=== PATIENT | female | born 1955 | race Caucasian/White ===

== ENCOUNTER 2017-11-22 06:24 | Day surgery (SDC) | payer OTHER ==
[2017-11-20 15:58] LABS: BASOPHILS % (AUTO) 0.5 % (0.0-2.0); EOSINOPHILS # (AUTO) 0.2 K/uL (0-0.4); EOSINOPHILS % (AUTO) 3.9 % (0.0-4.0); HEMOGLOBIN 13.8 g/dL (12.0-16.0); LYMPHOCYTES % (AUTO) 34.2 % (20.5-51.1); MEAN CORPUSCULAR HEMOGLOBIN 29 pg (27-31); MEAN CORPUSCULAR HGB CONC 33 g/dL (33-37); MEAN CORPUSCULAR VOLUME 87.1 fL (80-94); MONOCYTES # (AUTO) 0.6 K/uL (0.8-1.0); NEUTROPHILS # (AUTO) 3.1 K/uL (1.8-7.7); NEUTROPHILS % (AUTO) 51.4 % (42.2-75.2); PLATELET COUNT (AUTO) 193 K/uL (140-450); RED BLOOD CELL COUNT(AUTO) 4.82 MIL/uL (4.20-5.40); RED CELL DISTRIBUTION WIDTH 13.7 % (11.6-13.7)
[2017-11-20 16:11] LABS: ALBUMIN 3.4 g/dL (3.4-5.0); ANION GAP 7.6 (8-16); CARBON DIOXIDE 28.3 mmol/L (21-32); CREATININE 0.9 mg/dL (0.6-1.3); POTASSIUM 3.9 mmol/L (3.5-5.1); TOTAL BILIRUBIN 0.3 mg/dL (0.0-1.0)
[~2017-11-22] VITALS: Ht 165.1 cm; Wt 95.3 kg
[~2017-11-22 06:24] MED LIST: ACETAMINOPHEN-COD #3 TABLET; IBUP800T55 PO
[2017-11-22] MEDS ORDERED: LIDOCAINE 2% 100 MG/5 ML SYR IVP ONE (07:53)
[2017-11-22] MEDS ORDERED: PROPOFOL 200 MG/20 ML VIAL IV ONE (07:53)
[2017-11-22] MEDS ORDERED: SEVOFLURANE 250 ML BTL INH ONE (07:53)
[2017-11-22] MEDS ORDERED: MIDAZOLAM 2 MG/2 ML VIAL ONE (08:02)
[2017-11-22] MEDS ORDERED: MORPHINE SULFATE 4 MG/ML SYR IM/IVP PRN (08:10)
[2017-11-22] MEDS ORDERED: ACETAMINOPHEN/CODEINE 300/30MG 1 TAB PO PRN (08:10)
[2017-11-22] MEDS ORDERED: IBUPROFEN 800 MG TAB PO PRN (08:10)
[2017-11-22] MEDS ORDERED: ONDANSETRON 4 MG/2 ML VIAL IVP PRN ×2 (08:10→08:15)
[2017-11-22] MEDS ORDERED: HYDROmorphone 1 MG/ML AMP IVP PRN (08:15)
== END 2017-11-22 09:55 | disposition home or self-care (01) ==
LOC: MMU 06:24 → MDS 06:24
PROVIDERS: ATTEND Obstetrics & Gynecology
DX: N95.0 Postmenopausal bleeding (principal); N81.10 Cystocele, unspecified; N81.4 Uterovaginal prolapse, unspecified; N84.0 Polyp of corpus uteri; I10 Essential (primary) hypertension; E66.9 Obesity, unspecified; Z68.34 Body mass index [BMI] 34.0-34.9, adult; M06.9 Rheumatoid arthritis, unspecified; Z98.890 Other specified postprocedural states; Z79.899 Other long term (current) drug therapy; Z98.51 Tubal ligation status
CPT/HCPCS: 36415; 58120; 71045; 80053; 85025; 93005; J2001; J2250; J2704; J7120

== ENCOUNTER 2019-02-09 15:48 | Emergency (ER) | payer OTHER ==
[~2019-02-09] VITALS: Ht 157.5 cm; Wt 79.8 kg
[2019-02-09 15:50] VITALS: BP 136/81
--- NOTE | 2019-02-09 15:55 | NUR ---
PT AMBULATED TO BED 8.
--- NOTE | 2019-02-09 16:18 | NUR ---
64 YEAR OLD FEMALE COMPLAINS OF UPPER ABDOMINAL PAIN 10/25 THAT RADIATES TO FLANK AREA X 2DAYS. PATIENT STATES SHE HAS HAD NAUSEA AND VOMITTING X6 DAYS. BOWEL SOUNDS ACTIVE X4, PAIN UPON PALPATION IN UPPER ABDOMEN. DENIES DIARRHEA. PATIENT STATES BURNING SENSATION FROM THROAT. PATIENT ALERT AND ORIENTED. HX - HYPERTENSION
[2019-02-09] MEDS ORDERED: KETOROLAC 60 MG/2 ML VIAL IM ONE (16:35)
[2019-02-09] MEDS ORDERED: DICYCLOMINE HCL LIQUID 20 MG, ALUMINUM HYD/MAG/SIMETHICONE 30 ML, LIDOCAINE VISCOUS 2% ... PO ONE ×3 (16:35)
[2019-02-09] MEDS ORDERED: ONDANSETRON 4 MG ODT PO ONE (16:35)
[2019-02-09 17:17] VITALS: BP 151/90
--- NOTE | 2019-02-09 17:17 | NUR ---
Patient discharged with v/s stable. Written and verbal after care instructions given and explained. Patient alert, oriented and verbalized understanding of instructions. Ambulatory with steady gait. All questions addressed prior to discharge. ID band removed. Patient advised to follow up with PMD. Rx of PRILOSEC, MOTRIN, ZOFRAN given. Patient educated on indication of medication including possible reaction and side effects. Opportunity to ask questions provided and answered.
== END 2019-02-09 17:17 | disposition home or self-care (01) ==
LOC: MED 15:48
DX: R10.13 Epigastric pain (principal); R11.2 Nausea with vomiting, unspecified; I10 Essential (primary) hypertension; Z90.710 Acquired absence of both cervix and uterus; Z98.890 Other specified postprocedural states; Z79.1 Long term (current) use of non-steroidal anti-inflammatories (NSAID); Z79.899 Other long term (current) drug therapy
CPT/HCPCS: 81002; 81025; 96372; 99283; J1885; Q0162

== ENCOUNTER 2020-02-11 10:42 | Emergency (ER) | payer OTHER ==
[~2020-02-11] VITALS: Ht 157.5 cm; Wt 94.8 kg
[2020-02-11 10:45] VITALS: BP 116/89
--- NOTE | 2020-02-11 10:54 | NUR ---
Patient ambulated to bed 02 with steady gait
--- NOTE | 2020-02-11 11:11 | NUR ---
65 Y/F PRESENTS TO ED C CO R SCAPULAR PAIN X 5 DAY. PT REPORTS PAIN RADIATES TO NECK AND R SHOULDER. 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 PAIN IS ON AND OFF, 7/10 UNRELIEVED BY TYLENOL AND MOTRIN. PAIN IS WORSE WITH MOVEMENT. NO BRUISING OR EDEMA NOTED, NO OPEN SKIN OR WOUNDS NOTED. RX- TYLENOL, MOTRIN NKDA
--- NOTE | 2020-02-11 11:20 | NUR ---
XR AT BEDSIDE.
[2020-02-11] MEDS ORDERED: KETOROLAC 30 MG/ML VIAL IM ONE (11:30)
--- NOTE | 2020-02-11 11:59 | NUR ---
COVID SWAB COLLECTED AND GIVEN TO PHLEB.
[2020-02-11 12:28] VITALS: BP 116/89
--- NOTE | 2020-02-11 12:28 | NUR ---
Patient discharged with v/s stable. Written and verbal after care instructions given and explained. Patient alert, oriented and verbalized understanding of instructions. Ambulatory with steady gait. All questions addressed prior to discharge. ID band removed. Patient advised to follow up with PMD. Rx of IBUPROFEN AND AZITHROMYCIN given. Patient educated on indication of medication including possible reaction and side effects. Opportunity to ask questions provided and answered.
--- NOTE | 2020-02-12 11:59 | NUR ---
+ covid result received from lab. Copy given to Stacey at infection control
== END 2020-02-11 12:28 | disposition home or self-care (01) ==
LOC: MED 10:42
DX: U07.1 COVID-19 (principal); J18.9 Pneumonia, unspecified organism; M54.6 Pain in thoracic spine; I10 Essential (primary) hypertension
CPT/HCPCS: 71045; 96372; 99284; J1885; U0003

== ENCOUNTER 2020-02-16 11:28 | Inpatient (IN) | payer OTHER, SELFPAY ==
[~2020-02-16] VITALS: Ht 154.9 cm; Wt 91.2 kg
[2020-02-16 11:42] VITALS: BP 153/105
--- NOTE | 2020-02-16 11:48 | NUR ---
Patient ambulated to bed 3. RN evaluating patient at bedside.
[2020-02-16] MEDS ORDERED: DEXAMETHASONE 10 MG/ML VIAL IVP ONE (12:00)
[2020-02-16] MEDS ORDERED: AZITHROMYCIN 500 MG in DEXTROSE 5% 250 ML IV ONE (12:00)
[2020-02-16] MEDS ORDERED: AZITHROMYCIN 500 MG INJ VIAL IV ONE (12:12)
[2020-02-16] MEDS ORDERED: cefTRIAXone 1,000 MG VIAL ONE (12:13)
[2020-02-16 12:45] LABS: BASOPHILS % (AUTO) 0.2 % (0.0-2.0); HEMATOCRIT 39.6 % (36-48); HEMOGLOBIN 13.5 g/dL (12.0-16.0); LYMPHOCYTES # (AUTO) 0.6 K/uL (2.5-16.5); LYMPHOCYTES % (AUTO) 5.8 % (20.5-51.1); MEAN CORPUSCULAR HEMOGLOBIN 29 pg (27-31); MEAN CORPUSCULAR HGB CONC 34 g/dL (33-37); MEAN CORPUSCULAR VOLUME 84.6 fL (80-94); MONOCYTES # (AUTO) 0.4 K/uL (0.8-1.0); MONOCYTES % (AUTO) 3.5 % (1.7-9.3); NEUTROPHILS # (AUTO) 9.2 K/uL (1.8-7.7); NEUTROPHILS % (AUTO) 90.5 % (42.2-75.2); PLATELET COUNT (AUTO) 247 K/uL (140-450); RED BLOOD CELL COUNT(AUTO) 4.68 MIL/uL (4.20-5.40); RED CELL DISTRIBUTION WIDTH 13.8 % (11.6-13.7); WHITE BLOOD COUNT (AUTO) 10.1 K/uL (4.8-10.8)
--- NOTE | 2020-02-16 12:52 | NUR ---
URINE COLLECTED AT THIS TIME
[2020-02-16 12:59] LABS: PROTHROMBIN TIME 10.9 secs (10.8-13.4)
[2020-02-16 13:04] LABS: APPEARANCE,URINE CLEAR (CLEAR); BILIRUBIN,URINE NEGATIVE (NEGATIVE); BLOOD, URINE TRACE-I (NEGATIVE); COLOR,URINE YELLOW (YELLOW); LEUKOCYTE ESTERASE ,URINE NEGATIVE (NEGATIVE); NITRITE, URINE NEGATIVE (NEGATIVE); UGLUCOSE NEGATIVE (NEGATIVE)
--- NOTE | 2020-02-16 13:05 | NUR ---
65 YO F C/O COUGH, , SOB X 3 DAYS. PT TESTED + FOR COVIS LAST 02/11/20. IN ED, PT SATURATING @ 95% IN RA, TACHYCARDIC AT 102BPM. PT WITH DEEP LABORED BREATHING. ERMD MADE AWARE. PMH: HTN NKA
[2020-02-16 13:09] LABS: ALBUMIN 2.8 g/dL (3.4-5.0); ANION GAP 16.1 (8-16); CREATININE 0.7 mg/dL (0.6-1.3); POTASSIUM 3.1 mmol/L (3.5-5.1); TOTAL BILIRUBIN 0.6 mg/dL (0.0-1.0)
[2020-02-16 13:12] LABS: RBC,URINE 0-5 /HPF (0-5); WBC,URINE 0-5 /HPF (0-5)
[2020-02-16 13:14] LABS: C-REACTIVE PROTEIN QUANT 12.8 mg/dL (0.0-0.9)
[2020-02-16 13:45] LABS: CKMB RELATIVE INDEX 1.6 (0.0-2.5); CREATINE KINASE MB 4.8 ng/mL (0-3.6)
[2020-02-16] MEDS ORDERED: POTASSIUM CHLORIDE 10 MEQ TABER PO PRN (14:40)
[2020-02-16] MEDS ORDERED: DOCUSATE SODIUM 100 MG GELCAP PO PRN (14:40)
[2020-02-16] MEDS ORDERED: LORazepam 2 MG/ML VIAL IM/IVP PRN (14:40)
[2020-02-16] MEDS ORDERED: ONDANSETRON 4 MG/2 ML VIAL IM/IVP PRN (14:40)
[2020-02-16] MEDS ORDERED: MAG SULF 2000 MG/WATER PREMIX 50 ML IV PRN (14:40)
[2020-02-16] MEDS ORDERED: ZOLPIDEM 5 MG TAB PO PRN (14:40)
[2020-02-16] MEDS ORDERED: ALBUTEROL HFA MDI 90 MCG/ACTUATION 8 GM INH PRN (14:40)
[2020-02-16] MEDS: NACL 0.9% 1,000 ML IV SCH (15:13)
[2020-02-16 16:48] LABS: MAGNESIUM 1.6 mg/dL (1.8-2.4); PHOSPHORUS 3.3 mg/dL (2.5-4.9); THYROID STIMULATING HORMONE 1.89 uIU/mL (0.34-3.74)
[2020-02-16 17:04] LABS: BARBITURATE, URINE NEGATIVE ng/ml (NEG <=200); BENZODIAZEPINE, URINE NEGATIVE ng/mL (NEG <=200); CANNABINOID, URINE NEGATIVE ng/mL (NEG <=50); COCAINE, URINE NEGATIVE ng/mL (NEG <=300); OPIATE, URINE NEGATIVE ng/mL (NEG <=2000); PHENCYCLIDINE SCREEN,URINE NEGATIVE ng/mL (NEG <=25)
--- NOTE | 2020-02-16 19:18 | NUR ---
REPORT RECEIVED FROM ELADIO FERRARA
[2020-02-16] MEDS: ZINC SULF 220 MG CAP PO SCH (20:47)
[2020-02-16] MEDS: ENOXAPARIN 100 MG/ML SYR SUBQ SCH (20:48)
--- NOTE | 2020-02-16 21:36 | NUR ---
PT UP TO BEDSIDE COMMODE, HAD LOOSE STOOLS. PT BACK IN BED, POSOTIONED FOR COMFORT. REMAINS ON BEDSIDE MONITOR AND 02 AT 4L NC. PT ALSO C/O CHEST PAIN/DISCOMFORT RELATED TO BREATHING, WILL MEDICATE ORDERED FOR PRN PAIN.
[2020-02-16] MEDS: HYDROcodone/APAP 5/325 MG 1 TAB TAB PO PRN (21:42)
--- NOTE | 2020-02-16 22:28 | NUR ---
PT DECLINED HER DINNER TRAY
--- NOTE | 2020-02-17 01:00 | NUR ---
PT SLEEPING, RESPIRATIONS REMAIN REGULAR EVEN AND UNLABORED. PT REMAINS ON BEDSIDE MONITOR.
[2020-02-17 02:15] VITALS: BP 158/94
--- NOTE | 2020-02-17 02:15 | NUR ---
CONTINUATION: PATIENT BP IS HIGH 158/94, HR-92,TEMP-97.1, SATING 92% ON 4L/NC. SR ON TACTICAL DEBRIEFER OFFICER, HR-86.ORIENTED THE PT TO THE ROOM SETTING AND USE OF CALL LIGHT SYSTEM. IVF INFUSING ORDERED. INSTRUCTED THE PT TO CALL FOR ASSISTANCE AT ALL TIMES. CALL LIGHT WITHIN REACH. WILL CONTINUE POC AND MONITORING.
--- NOTE | 2020-02-17 02:20 | NUR ---
ADMITTED THE PT FROM ER VIA GURNEY. PATIENT A/A/OX4, JAPANESE SPEAKING ONLY.PT AMBULATORY WITH STANDBY ASSIST ONLY. HR ADMINISTRATOR PROVIDED # [id number]. DENIES ANY CHEST PAIN,SOB , PALPITATIONS AND DIZZINESSBP .
--- NOTE | 2020-02-17 02:28 | NUR ---
Patient will be admitted to care of DR HOLLAND. Admited to TELE. Will go to room 107B. Belongings list completed. Report to BRENDA FERRARA.
[2020-02-17 04:00] VITALS: BP 125/71
--- NOTE | 2020-02-17 04:00 | NUR ---
PATIENTS VITAL SIGNS STABLE, AFEBRILE, SATING 93% ON 4L/NC. SR ON CIRCUIT COURT CLERK, HR-70. NO COMPLAIN OF PAIN AT THIS TIME. NOT IN ANY DISTRESS.CALL LIGHT WITHIN REACH.
--- NOTE | 2020-02-17 04:24 | NUR ---
PATIENT ASLEEP AT THIS TIME. NOT IN ANY DISTRESS. WILL CONTINUE TO MONITOR. SATING 94% ON 4L/NC.
[2020-02-17] MEDS: NACL 0.9% 1,000 ML IV SCH (05:54)
--- NOTE | 2020-02-17 06:05 | NUR ---
NO ACUTE EVENT THROUGHOUT THE NIGHT. PATIENT STABLE. NO SIGN AND SYMPTOMS OF DISTRESS NOTED. NO COMPLAIN AT THIS TIME. ALL NEEDS ATTENDED.C ALL LIGHT WITHIN REACH. WILL ENDORSE THE PT TO THE ONCOMING RN FOR CONTINUITY OF CARE.
--- NOTE | 2020-02-17 07:25 | NUR ---
RECEIVED REPORT FROM BUSINESS PROCESS ASSOCIATE RN FOR CONTINUITY OF CARE. PATIENT IS AWAKE, ALERT. ABLE TO MAKE NEEDS KNOWN. RESPIRATORY EVEN AND UNLABORED WITH 4L NC. SKIN INTACT. WARM AND DRY. IV SITE TO LEFT WRIST 24G INFUSING NS @60ML/HR. ABDOMEN SOFT NON TENDER. NO ACUTE DISTRESS NOTED. SAFETY MEASURES IN PLACE, CALL LIGHT WITHIN REACH. WILL CONTINUE TO MONITOR.
[2020-02-17 07:36] LABS: BASOPHILS % (AUTO) 0.1 % (0.0-2.0); HEMATOCRIT 38.1 % (36-48); HEMOGLOBIN 12.9 g/dL (12.0-16.0); LYMPHOCYTES # (AUTO) 0.5 K/uL (2.5-16.5); LYMPHOCYTES % (AUTO) 8.2 % (20.5-51.1); MEAN CORPUSCULAR HEMOGLOBIN 29 pg (27-31); MEAN CORPUSCULAR HGB CONC 34 g/dL (33-37); MEAN CORPUSCULAR VOLUME 84.1 fL (80-94); MONOCYTES # (AUTO) 0.4 K/uL (0.8-1.0); MONOCYTES % (AUTO) 6.7 % (1.7-9.3); NEUTROPHILS # (AUTO) 4.7 K/uL (1.8-7.7); PLATELET COUNT (AUTO) 259 K/uL (140-450); RED BLOOD CELL COUNT(AUTO) 4.53 MIL/uL (4.20-5.40); RED CELL DISTRIBUTION WIDTH 14.1 % (11.6-13.7); WHITE BLOOD COUNT (AUTO) 5.5 K/uL (4.8-10.8)
[2020-02-17 08:00] VITALS: BP 122/71
[2020-02-17 08:18] LABS: MAGNESIUM 1.8 mg/dL (1.8-2.4); PHOSPHORUS 3.6 mg/dL (2.5-4.9)
--- NOTE | 2020-02-17 08:49 | NUR ---
PATIENT HAS BEEN SCREENED AND CATEGORIZED MODERATE NUTRITION RISK. PATIENT WILL BE SEEN WITHIN 3-5 DAYS OF ADMISSION. 02/19/20 02/21/[address]
[2020-02-17] MEDS: VITAMIN D 400 IU TAB PO SCH (09:47)
[2020-02-17] MEDS: AZITHROMYCIN 250 MG TAB PO SCH (09:48)
[2020-02-17] MEDS: ASCORBIC ACID 500 MG TAB PO SCH (09:48)
[2020-02-17] MEDS: ZINC SULF 220 MG CAP PO SCH ×2 (09:48→21:04)
[2020-02-17] MEDS: ENOXAPARIN 100 MG/ML SYR SUBQ SCH ×2 (09:49→21:06)
--- NOTE | 2020-02-17 09:50 | NUR ---
SCHEDULED MEDICATION GIVEN, EDUCATION PROVIDED, PATIENT TOLERATED WELL. PATIENT TOOK OFF THE OXYGEN WHILE TAKING THE MEDICATION. O2 SAT DROPPED TO 76%, PUT BACK THE 4L OXYGEN VIA NASAL CANNULA, O2 SAT INCREASED TO 91%. INFORMED PATIENT TO BREATHE SLOWLY. INSTRUCTED THE PATIENT TO TAKE BREATH, PATIENT VERBALIZED UNDERSTANDING AND ABLE TAKE DEEP BREATHE. SAFETY MEASURES IN PLACE, CALL LIGHT WITHIN REACH. WILL CONTINUE TO MONITOR.
--- NOTE | 2020-02-17 10:42 | NUR ---
REPORTED TO MD THAT PATIENT'S POTASSIUM LEVEL WAS 3.1 YESTERDAY, AND NO MEDS BEEN GIVEN FOR REPLETE K. NEW MD ORDER 40 MEQ K RIDER WITH LIDOCAINE OBTAINED, CHECK BMP, WILL FOLLOW UP AND CARRY OUT.
[2020-02-17] MEDS ORDERED: POTASSIUM CHLORIDE 40 MEQ, LIDOCAINE MPF 1% 25 MG in NACL 0.9% 250 ML IV ONE (10:45)
--- NOTE | 2020-02-17 11:33 | NUR ---
SOCIAL WORK NOTE: Patient's Orientation Person Situation Place Time Information Provided By PATIENT Comments SW WAS UNABLE TO MEET PATIENT AT BEDSIDE DUE TO MEDICAL CONDITION. SW COMPLETED ASSESSMENT WITH PATIENT TELEPHONICALLY WITH EDGE BASTER NASEEM [id number]. Cdl Bulk Driver, Realtionship and Phone Number ROLA MACHADO [phone] Healthcare Power of Shirt Marker No Does Patient Have a POLST No Identifying Problems No Social Work Triggers Is A Social Work Consult Needed No Mandate Report Filed No Explanation Of Identifying Problems PATIENT IS A 65-YEAR-OLD FEMALE ADMITTED FOR COVID AND HYPOXIA. PATIENT HAS PMHX OF HYPERTENSION. PATIENT REPORTED NO HISTORY OF SUBSTANCE ABUSE OR MENTAL HEALTH. Admitted From Home Pre-Admission Level Of Functioning Status Independent/Ambulatory Prior Resources/Services Used In Last 12 Months No Prior Resources Used Prior DME No Prior DME Used Dialysis Comments N/A Living Situation Apartment Lives With Family Patient Had Caregiver No Home Support No Caregiver Issues Financial Issues No Known Financial Issue Referral To The Financial Counselor Needed No Factors/Needs No D/C Needs Identified Explanation And Or Other Factors Affecting/Possible DC Needs PATIENT STATED WOULD PROVIDE TRANSPORTATION HOME. Pt/Rep Participated In Discharge Plan Yes Patient/Family Agress With Discharge Plan Yes Discharge Plan Comments TENTATIVE DISCHARGE PLAN IS FOR PATIENT TO RETURN HOME. DC Plan Status Initiated
[2020-02-17 11:39] LABS: ANION GAP 14.4 (8-16); CARBON DIOXIDE 23.2 mmol/L (21-32); CREATININE 0.6 mg/dL (0.6-1.3); POTASSIUM 3.6 mmol/L (3.5-5.1)
[2020-02-17 12:00] VITALS: BP 140/84
--- NOTE | 2020-02-17 12:15 | NUR ---
PATIENT RESTING IN BED, O2 SAT 91% WITH 4L NC. SAFETY MEASURES IN PLACE, WILL CONTINUE TO MONITOR.
[2020-02-17 13:35] LABS: CHOL/HDL RATIO 3.2 (1-4.5)
--- NOTE | 2020-02-17 14:37 | NUR ---
PATIENT RESTING IN LEFT LATERAL POSITION. O2 SAT 92% WITH 4L NC. HR 72. NO ACUTE DISTRESS NOTED. SAFETY MEASURES IN PLACE, WILL CONTINUE TO MONITOR.
--- NOTE | 2020-02-17 15:14 | NUR ---
PATIENT'S O2 SAT 88%. ENCOURAGED PATIENT TO TAKE DEEP BREATHE. O2 SAT INCREASED TO 91% WITH 4L NC. SAFETY MEASURES IN PLACE, CALL LIGHT WITHIN REACH. WILL CONTINUE TO MONITOR.
[2020-02-17 16:00] VITALS: BP 135/72
--- NOTE | 2020-02-17 18:01 | NUR ---
PATIENT RESTING IN LEFT LATERAL POSITION. O2 SAT 92% WITH 4L NC. SAFETY MEASURES IN PLACE, WILL CONTINUE TO MONITOR.
--- NOTE | 2020-02-17 19:25 | NUR ---
ENDORSED PATIENT TO ACIDIZER RN FOR CONTINUITY OF CARE. PATIENT IN STABLE CONDITION.
[2020-02-17] MEDS ORDERED: remdesivir COMMUNICATION ORDER 1 EA MISC MC PRN (19:35)
[2020-02-17 20:00] VITALS: BP 148/64
--- NOTE | 2020-02-17 20:00 | NUR ---
RECEIVED REPORT FROM DAY RN FOR CONTINUITY OF CARE.PT A/A/OX4, LAYING IN BED DURING ROUNDS. VSS, AFEBRILE, SATING 93% ON 4L/NC. SR ON EDUCATIONAL INSTITUTION CURATOR, HR-82. NO COMPLAIN AT THIS TIME. NOT IN ANY DISTRESS. CALL LIGHT WITHIN REACH. WILL CONTINUE POC AND MONITORING.
[2020-02-17] MEDS: HYDROcodone/APAP 5/325 MG 1 TAB TAB PO PRN (21:07)
--- NOTE | 2020-02-17 22:00 | NUR ---
ADMINISTERED ALL THE SCHEDULED MEDICATIONS ORDERED AND ALSO MEDICATED THE PT FOR PAIN ORDERED AND PER PT REQUEST.
[2020-02-18] VITALS: BP 140/76
--- NOTE | 2020-02-18 | NUR ---
PATIENTS VITAL SIGNS STABLE, AFEBRILE, SATING 91% ON 4L/NC. SR ON DRESSMAKING TEACHER, HR-70. NO COMPLAIN OF PAIN AT THIS TIME. NOT IN ANY DISTRESS.CALL LIGHT WITHIN REACH.
--- NOTE | 2020-02-18 03:03 | NUR ---
PATIENT ASLEEP AT THIS TIME. VISIBLE CHEST RISE AND FALL NOTED. SAFETY MEASURES IN PLACED.
[2020-02-18 04:00] VITALS: BP 142/74
--- NOTE | 2020-02-18 04:00 | NUR ---
PATIENT VITAL SIGNS STABLE, AFEBRILE, SATING 93% ON 4L/NC. NOT IN ANY DISTRESS. NO COMPLAIN AT THIS TIME. CALL LIGHT WITHIN REACH.
--- NOTE | 2020-02-18 07:15 | NUR ---
RECEIVED REPORT FROM COAL AND ASH SUPERVISOR RN FOR CONTINUITY OF CARE. PATIENT RESTING IN BED WITH LEFT LATERAL POSITION. O2 SAT 94% WITH 4L NC, HR 63. NO ACUTE DISTRESS NOTED. SKIN WARM AND DRY, INTACT. ABDOMEN SOFT, NON TENDER. NO ACUTE DISTRESS NOTED. SAFETY MEASURES IN PLACE, WILL CONTINUE TO MONITOR.
--- NOTE | 2020-02-18 07:40 | NUR ---
PT STABLE. ENDORSED PT TO DAY RN FOR CONTINUITY OF CARE. SIGNING OFF.
[2020-02-18 08:00] VITALS: BP 144/77
[2020-02-18] MEDS: ENOXAPARIN 100 MG/ML SYR SUBQ SCH ×2 (08:39→21:52)
[2020-02-18 08:40] LABS: MAGNESIUM 1.8 mg/dL (1.8-2.4); PHOSPHORUS 3.9 mg/dL (2.5-4.9)
[2020-02-18] MEDS: VITAMIN D 400 IU TAB PO SCH (08:40)
[2020-02-18] MEDS: ZINC SULF 220 MG CAP PO SCH ×2 (08:40→21:54)
[2020-02-18] MEDS: ASCORBIC ACID 500 MG TAB PO SCH (08:40)
[2020-02-18] MEDS: AZITHROMYCIN 250 MG TAB PO SCH (08:41)
--- NOTE | 2020-02-18 08:44 | NUR ---
SCHEDULED MEDICATION GIVEN, EDUCATION PROVIDED. PATIENT DESAT TO 65% AFTER USING THE RESTROOM. PUT BACK OXYGEN, STILL NOT IMPROVING TOO MUCH. INCREASED TO 10L, O2 SAT 84%. CALL RT TO CHECK THE PATIENT. WILL FOLLOW UP.
[2020-02-18 08:47] LABS: BASOPHILS % (AUTO) 0.1 % (0.0-2.0); HEMATOCRIT 39.7 % (36-48); HEMOGLOBIN 13.2 g/dL (12.0-16.0); LYMPHOCYTES # (AUTO) 0.7 K/uL (2.5-16.5); LYMPHOCYTES % (AUTO) 9.4 % (20.5-51.1); MEAN CORPUSCULAR HEMOGLOBIN 28 pg (27-31); MEAN CORPUSCULAR HGB CONC 33 g/dL (33-37); MONOCYTES # (AUTO) 0.4 K/uL (0.8-1.0); MONOCYTES % (AUTO) 4.7 % (1.7-9.3); NEUTROPHILS # (AUTO) 6.5 K/uL (1.8-7.7); NEUTROPHILS % (AUTO) 85.8 % (42.2-75.2); PLATELET COUNT (AUTO) 314 K/uL (140-450); RED BLOOD CELL COUNT(AUTO) 4.67 MIL/uL (4.20-5.40); RED CELL DISTRIBUTION WIDTH 13.7 % (11.6-13.7); WHITE BLOOD COUNT (AUTO) 7.6 K/uL (4.8-10.8)
--- NOTE | 2020-02-18 09:00 | NUR ---
PATIENT'S O2 SAT 90% WITH 10L. HR 72. RT CAME TO CHECK THE PATIENT. WILL FOLLOW UP.
[2020-02-18 09:08] LABS: T4 (THYROXINE) 10.5 ug/dL (4.5-12.0)
--- NOTE | 2020-02-18 09:10 | NUR ---
PATIENT IS ON 8L OXIMIZER. O2 SAT 85%-88%. ENCOURAGED PATIENT TO TAKE DEEP BREATHE AND RELAX. PATIENT VERBALIZED UNDERSTANDING. WILL CONTINUE TO MONITOR TO KEEP O2 SAT > 88%.
--- NOTE | 2020-02-18 09:45 | NUR ---
PATIENT'S O2 DESATURATED TO 70%. INCREASED TO 10L OXYMIZER. O2 SAT 84%. ENCOURAGED PATIENT TO TAKE DEEP BREATHE AND RELAX. O2 SAT INCREASED TO 88%. WILL CONTINUE TO CLOSELY TO MONITOR. Addendum: 02/18/20 at 1029 by Ez Alford RN O2 DESATURATED TO 70% AFTER EXERCISE WITH PT.
--- NOTE | 2020-02-18 10:24 | NUR ---
CHECKED THE PATIENT. PATIENT STILL HAVING BREAKFAST. O2 SAT 85% WITH 10L OXYMIZER. INSTRUCTED PATENT TO TAKE DEEP BREATH. PATENT'S O2 SAT INCREASED TO 93%. WILL CONTINUE TO MONITOR.
--- NOTE | 2020-02-18 11:09 | NUR ---
CHECKED PATIENT. O2 SAT 95% WITH 10 L OXYMIZER. DECREASED O2 TO 9L VIA OXYMIZER. O2 SAT 93%. WILL CONTINUE TO MONITOR.
[2020-02-18] MEDS ORDERED: CLINICAL MONITORING MC PRN (11:15)
--- NOTE | 2020-02-18 11:35 | NUR ---
DC PL[age] YRS OLD FEMALE PATIENT WAS ADMITTED FROM HOME WITH A DX OF COVID , HYPOXIA . PT HAS A POSITIVE COVID TEST ON 02/10. PT HAS A HX OF RA AND OBESITY. CXR SHOWED RIGHT BASAL AND PATCHY BILATERAL PERIHILAR EDEMA VERSUS INFILTRATE. STARTED ON COVID PROTOCOL REMDESIVIR DECADRON AND IV ABX ROCEPHIN AND AZITHROMYCIN. SEEN BY PULROXANA AND ID DR REID , CONTINUE RT SUPPORT , ON O2 4L/NC SATING 91% , DC PLAN TO WEAN OXYGEN TO ROOM AIR AND TO GO HOME WHEN STABLE CM TO FOLLOW Addendum: 02/29/20 at 1632 by Eda Sánchez CM REMAINS INTUBATED AND SEDATED, FIO2 100%, PEEP 10, O2 SAT 93%. SEDATED WITH FENTANYL, VERSED, PROPOFOL. ON SOLU MEDROL. COMPLETED REMDESIVIR COURSE. RECEIVED 1 UNIT CONVALESCENT PLASMA. Addendum: 03/07/20 at 1455 by Eda Sánchez CM REMAINS INTUBATED TO VENT, FIO2 100%, PEEP 8, O2 SAT 97%. SEDATED WITH FENTANYL AND VERSED. ON SOLU MEDROL. S/P REMDESIVIR. S/P CONVALESCENT PLASMA. PER PULMO - CONT MECHANICAL VENTILATION, STEROIDS, PRONE POSITIONING, ANTICOAGULATION.
[2020-02-18 11:48] LABS: ALBUMIN 2.5 g/dL (3.4-5.0); BILIRUBIN,DIRECT 0.1 mg/dL (0.0-0.3); TOTAL BILIRUBIN 0.5 mg/dL (0.0-1.0)
--- NOTE | 2020-02-18 13:02 | NUR ---
CHECKED PATIENT. AWAKE RESTING IN BED WITH SITTING POSITION. PATIENT'S O2 SAT 90% WITH 9L OXYMIZER. NO ACUTE DISTRESS NOTED. WILL CONTINUE TO MONITOR.
[2020-02-18] MEDS ORDERED: REMDESIVIR (EUA) 200 MG in NACL 0.9% 100 ML IV SCH (14:00)
--- NOTE | 2020-02-18 14:27 | NUR ---
FIRST DOSE OF REMDESIVIR GIVEN VIA IVPB. EDUCATION PROVIDED. PATIENT'S O2 SAT 91% WITH 9L OXYMIZER. DECREASED TO 8L. PATIENT TOLERATED WELL, O2 SAT 90%. WILL CONTINUE TO CLOSELY TO MONITOR.
--- NOTE | 2020-02-18 15:10 | NUR ---
CHECKED PATIENT. O2 80% IN SITTING POSITION. ENCOURAGED PATIENT TO TAKE DEEP BREATHE. O2 SAT INCREASED TO 91%. INCENTIVE SPIROMETER PROVIDED, INSTRUCTED THE PATIENT HOW TO PROPER USE. PATIENT ABLE TO USE INCENTIVE SPIROMETER PROPERLY. WILL CONTINUE TO MONITOR.
--- NOTE | 2020-02-18 15:51 | NUR ---
PATIENT RESTING IN PRONE POSITION. O2 SAT 94% WITH 8L OXYMIZER. HR 80. WILL CONTINUE TO MONITOR.
[2020-02-18 16:00] VITALS: BP 136/67
[2020-02-18] MEDS: NACL 0.9% 1,000 ML IV SCH ×2 (16:40)
--- NOTE | 2020-02-18 19:12 | NUR ---
ENDORSED PATIENT TO SUPERVISOR INSECTICIDE RN FOR CONTINUITY OF CARE. PATIENT IN STABLE CONDITION WITH 8L OXYMIZER.
--- NOTE | 2020-02-18 19:13 | NUR ---
RECEIVED ENDORSEMENT FROM AM SHIFT RN. AOX4, ON 8L OXIMIZER, O2 SAT WNL, IVF INFUSING, SAFETY MEASURES IN PLACE, PLAN OF CARE DISCUSSED, CALL LIGHT WITHIN REACH.
--- NOTE | 2020-02-18 22:00 | NUR ---
Due meds given as ordered, tolerated well, o2 sat 90-91% no sob, call light within reach.
[2020-02-19] MEDS: MORPHINE SULFATE 2 MG/ML SYR IVP PRN ×3 (00:52→13:25)
--- NOTE | 2020-02-19 01:00 | NUR ---
C/O BACK PAIN 12/25, PAIN MED GIVEN ORDERED, CALL LIGHT WITHIN REACH. O2 SAT 91%, NO SOB. CALL LIGHT WITHIN REACH.
[2020-02-19] MEDS: NACL 0.9% 1,000 ML IV SCH (03:49)
--- NOTE | 2020-02-19 03:53 | NUR ---
PT ASLEEP, AROUSABLE TO VERBAL, DENIES PAIN, HANGED A NEW BAG OF NS 1L AT 60 CC/HR. ISOLATION PRECAUTION OBSERVED AT ALL TIMES. O2 SAT AT 93%, NO SOB. CALL LIGHT WITHIN REACH.
[2020-02-19 04:00] VITALS: BP 122/74
--- NOTE | 2020-02-19 05:15 | NUR ---
C/O BACK PAIN 11/25, REPOSITIONED, PAIN MED GIVEN ORDERED, CALL LIGHT WITHIN REACH.
[2020-02-19 07:18] LABS: BASOPHILS % (AUTO) 0.1 % (0.0-2.0); EOSINOPHILS % (AUTO) 0.1 % (0.0-4.0); HEMOGLOBIN 12.8 g/dL (12.0-16.0); LYMPHOCYTES # (AUTO) 0.8 K/uL (2.5-16.5); LYMPHOCYTES % (AUTO) 8.1 % (20.5-51.1); MEAN CORPUSCULAR HEMOGLOBIN 29 pg (27-31); MEAN CORPUSCULAR HGB CONC 34 g/dL (33-37); MEAN CORPUSCULAR VOLUME 84.5 fL (80-94); MONOCYTES # (AUTO) 0.4 K/uL (0.8-1.0); MONOCYTES % (AUTO) 4.1 % (1.7-9.3); NEUTROPHILS # (AUTO) 8.2 K/uL (1.8-7.7); NEUTROPHILS % (AUTO) 87.6 % (42.2-75.2); PLATELET COUNT (AUTO) 297 K/uL (140-450); RED CELL DISTRIBUTION WIDTH 13.9 % (11.6-13.7); WHITE BLOOD COUNT (AUTO) 9.4 K/uL (4.8-10.8)
[2020-02-19 07:35] LABS: MAGNESIUM 1.7 mg/dL (1.8-2.4); PHOSPHORUS 3.5 mg/dL (2.5-4.9)
--- NOTE | 2020-02-19 07:40 | NUR ---
PT IS STABLE, BEDSIDE ENDORSEMENT GIVEN TO AM SHIFT RN FOR CONTINUITY OF CARE.
[2020-02-19] MEDS: VITAMIN D 400 IU TAB PO SCH (10:16)
[2020-02-19] MEDS: ZINC SULF 220 MG CAP PO SCH ×2 (10:16→20:14)
[2020-02-19] MEDS: ASCORBIC ACID 500 MG TAB PO SCH (10:16)
[2020-02-19] MEDS: AZITHROMYCIN 250 MG TAB PO SCH (10:16)
[2020-02-19] MEDS: ENOXAPARIN 100 MG/ML SYR SUBQ SCH ×2 (10:17→20:13)
--- NOTE | 2020-02-19 12:25 | NUR ---
CALLED PHARMACY INFORMING THAT REMDESIVIR NOT READY YET. PER PHARMACIST, STILL LOOKING FOR THE LABS, RUNS LATE. WILL CONTINUE TO FOLLOW UP.
[2020-02-19 12:27] LABS: ALBUMIN 2.4 g/dL (3.4-5.0); ANION GAP 14.2 (8-16); CREATININE 0.7 mg/dL (0.6-1.3); POTASSIUM 3.2 mmol/L (3.5-5.1); TOTAL BILIRUBIN 0.5 mg/dL (0.0-1.0)
--- NOTE | 2020-02-19 13:15 | NUR ---
MORPHINE GIVEN VIA IVP FOR RIGHT SHOULDER AND LOWER BACK, 11/25. EDUCATION PROVIDED. REMDESIVIR GIVEN VIA IVPB. EDUCATED PATIENT REGARDING THE RELAXATION TECHNIQUE AND NON PHARMACOLOGICAL PAIN MANAGEMENT. ENCOURAGED PATIENT TO TAKE DEEP BREATH AND USE THE INCENTIVE SPIROMETER. O2 SAT 95% WITH 9L OXYMIZER. DECREASED TO 8L, O2 SAT 93% WITH LEFT LATERAL POSITION. WILL CONTINUE TO MONITOR.
[2020-02-19] MEDS: REMDESIVIR (EUA) 100 MG in NACL 0.9% 100 ML IV SCH (13:24)
[2020-02-19] MEDS ORDERED: MAGNESIUM OXIDE 400 MG TAB PO SCH (15:00)
--- NOTE | 2020-02-19 15:25 | NUR ---
MAG OX GIVEN FOR MAGNESIUM LEVEL 1.7. K DUR GIVEN FOR POTASSIUM LEVEL 3.2, PATIENT WALKED BACK FROM THE RESTROOM. O2 SAT DESATURATED TO 80%. PATIENT GOT SOB ON MILD EXERTION. WAITED FOR ANOTHER COUPLE MINS. O2 SAT INCREASED TO 88% ON 8L OXIMIZER. WILL CONTINUE TO MONITOR.
[2020-02-19 16:00] VITALS: BP 130/76
--- NOTE | 2020-02-19 18:41 | NUR ---
UPDATED PATIENT'S DAJUAN [phone] REGARDING PATIENT'S CONDITION. EXPLAINED TO HIM ABOUT THE CONVALESCENT PLASMA. PATIENT'S REQUESTS MD TO TALK TO HIM TO GET MORE INFO REGARDING THE CONVALESCENT PLASMA, WILL INFORM MD AND ALSO WILL ENDORSE CHILDREN TEACHER RN TO FOLLOW UP.
--- NOTE | 2020-02-19 19:20 | NUR ---
ENDORSED PATIENT TO DRAMATIC ART TEACHER RN FOR CONTINUITY OF CARE. PATIENT RESTING IN BED IN STABLE CONDITION.
--- NOTE | 2020-02-19 19:21 | NUR ---
RECEIVED REPORT FROM DAY SHIFT NURSE. PT IN BED RESTING. PT AAOX4, AMBULATORY, ABLE TO MAKE NEEDS KNOWN. RESPIRATIONS EVEN AND UNLABORED TO O2 8LPM/OXYMIZER. LUNG SOUNDS DIMINISHED. ABDOMEN SOFT AND NON-TENDER. ACTIVE BOWEL SOUNDS NOTED. SKIN SI WARM, DRY, AND INTACT. PT WITH IV ACCESS ON LEFT FA G22 PATENT AND INTACT, IVF INFUSING WELL. PT DENIES ANY PAIN OR DISCOMFORT AT THIS TIME. NO COMPLAINTS MADE, NO REQUESTS MADE. PT KEPT COMFORTABLE. SAFETY MEASURES IN PLACE. CALL LIGHT WITHIN REACH. WILL CONTINUE TO MONITOR.
[2020-02-19 20:00] VITALS: BP 124/77
--- NOTE | 2020-02-19 20:14 | NUR ---
VS STABLE. PT IN BED RESTING WITH HOB ELEVATED. OXYMIZER IN PLACE. PT NOT IN DISTRESS. SCHEDULED MEDS GIVEN. PT DENIES ANY PAIN OR DISTRESS AT THIS TIME. PT KEPT COMFORTABLE. SAFETY MEASURES IN PLACE. CALL LIGHT WITHIN REACH. WILL CONTINUE TO MONITOR.
--- NOTE | 2020-02-19 20:45 | NUR ---
OBTAINED VERBAL PHONE CONSENT FROM DAJUAN () REGARDING CONVALESCENT PLASMA. CALL WITNESSED BY EMILY (RN). WILL CONTINUE TO MONITOR.
--- NOTE | 2020-02-19 22:11 | NUR ---
ROUNDS MADE. PT IN BED RESTING WATCHING TV. OXYMIZER IN PLACE. CURRENT O2 SAT 89%. PT NOT IN DISTRESS. NO REQUESTS MADE AT THIS TIME. PT KEPT COMFORTABLE. SAFETY MEASURES IN PLACE. CALL LIGHT WITHIN REACH. WILL CONTINUE TO MONITOR.
--- NOTE | 2020-02-20 00:16 | NUR ---
ROUNDS MADE. PT ASLEEP WITH HOB ELEVATED. OXYMIZER IN PLACE. PT NOT IN DISTRESS. NO S/SX OF PAIN OR DISCOMFORT NOTED. PT KEPT COMFORTABLE. SAFETY MEASURES IN PLACE. CALL LIGHT WITHIN REACH. WILL CONTINUE TO MONITOR.
[2020-02-20] MEDS: NACL 0.9% 1,000 ML IV SCH ×2 (02:00→18:41)
--- NOTE | 2020-02-20 02:25 | NUR ---
ROUNDS MADE. PT IN BED WITH HOB ELEVATED. OXIMIZER IN PLACE. O2 SAT 76%. PT DENIES ANY DIFFICULTY BREATHING. RT CALLED AND INFORMED ABOUT PT O2 SAT. RT WENT AND ASSESSED PT, CHANGED PT NO NON-REBREATHER MASK 15LPM. PT CURRENT O2 SAT 98%. WILL CONTINUE TO MONITOR.
--- NOTE | 2020-02-20 02:28 | NUR ---
CALLED TO BEDSIDE BY RN PT SPO2 LOW 70s ON 15L OXY PT WAS PLACED ON NRB AND ARTEMIO WELL PT SPO2 99% HR 97 WILL CONTINUE TO MONITOR AND TITRATE TOLERATED
[2020-02-20] MEDS: MORPHINE SULFATE 2 MG/ML SYR IVP PRN ×3 (03:57→15:17)
--- NOTE | 2020-02-20 03:58 | NUR ---
PT COMPLAINING OF BACK PAIN 10/25. PRN PAIN MEDICATION GIVEN ORDERED.
[2020-02-20 04:00] VITALS: BP 127/69
--- NOTE | 2020-02-20 04:08 | NUR ---
CALLED TO BEDSIDE PT IS NOT TOLERATING NRB VERY WELL ALTHOUGH SPO2 IS > 90% PT PLACED BACK ON 15L OXY AND WAS PRONED DUE TO LOW SPO2 CURRENT SPO2 87% AND CLIMBING SLOWLY WILL CONTINUE TO MONITOR
--- NOTE | 2020-02-20 04:28 | NUR ---
VS STABLE. PT ON PRONE POSITION. OXYMIZER IN PLACE. PT NOT IN DISTRESS. CURRENT O2 SAT 90%. NO S/SX OF PAIN OR DISCOMFORT NOTED. PT KEPT COMFORTABLE. SAFETY MEASURES IN PLACE. CALL LIGHT WITHIN REACH. WILL CONTINUE TO MONITOR.
--- NOTE | 2020-02-20 07:18 | NUR ---
ENDORSED TO DAY SHIFT NURSE FOR CONTINUITY OF CARE
--- NOTE | 2020-02-20 07:19 | NUR ---
RECEIVED ENDORSEMENT FROM DIVER ASSISTANT, AWAKE ,ALERT, ORIENTEDX4, WITH O2 AT 15L/MIN VIA OXYMIZER, NON LABORED NOTED. WITH ONGOING IV FLUID WITH 0.9% NS 60ML/HOUR INFUSING AT LEFT FOREARM G22 IV CANNULA NOTED. DX: COVID POSITIVE, ON DROPLET ISOLATION. SAFETY MEASURES IN PLACE AND CONTINUE MONITOR..
[2020-02-20 07:49] LABS: BASOPHILS % (AUTO) 0.1 % (0.0-2.0); EOSINOPHILS % (AUTO) 0.2 % (0.0-4.0); HEMATOCRIT 40.9 % (36-48); HEMOGLOBIN 13.6 g/dL (12.0-16.0); LYMPHOCYTES # (AUTO) 0.8 K/uL (2.5-16.5); LYMPHOCYTES % (AUTO) 6.4 % (20.5-51.1); MEAN CORPUSCULAR HEMOGLOBIN 28 pg (27-31); MEAN CORPUSCULAR HGB CONC 33 g/dL (33-37); MEAN CORPUSCULAR VOLUME 84.4 fL (80-94); MONOCYTES # (AUTO) 0.3 K/uL (0.8-1.0); MONOCYTES % (AUTO) 2.5 % (1.7-9.3); NEUTROPHILS # (AUTO) 10.9 K/uL (1.8-7.7); NEUTROPHILS % (AUTO) 90.8 % (42.2-75.2); PLATELET COUNT (AUTO) 324 K/uL (140-450); RED BLOOD CELL COUNT(AUTO) 4.85 MIL/uL (4.20-5.40); RED CELL DISTRIBUTION WIDTH 13.7 % (11.6-13.7)
[2020-02-20 08:00] VITALS: BP 135/80
[2020-02-20 08:09] LABS: MAGNESIUM 1.8 mg/dL (1.8-2.4); PHOSPHORUS 3.1 mg/dL (2.5-4.9)
[2020-02-20] MEDS: MAGNESIUM OXIDE 400 MG TAB PO SCH (09:07)
[2020-02-20] MEDS: ZINC SULF 220 MG CAP PO SCH ×2 (09:07→21:44)
[2020-02-20] MEDS: VITAMIN D 400 IU TAB PO SCH (09:07)
[2020-02-20] MEDS: ASCORBIC ACID 500 MG TAB PO SCH (09:07)
[2020-02-20] MEDS: AZITHROMYCIN 250 MG TAB PO SCH (09:07)
[2020-02-20] MEDS: ENOXAPARIN 100 MG/ML SYR SUBQ SCH ×2 (09:09→21:46)
--- NOTE | 2020-02-20 09:10 | NUR ---
COMPLAINED OF SEVERE BACK PAIN 10/25 , MORPHINE 2MG IV ORDERED PRN AND DUE MEDICATION GIVEN
[2020-02-20 09:20] LABS: ANION GAP 15.4 (8-16); CARBON DIOXIDE 22.2 mmol/L (21-32); CREATININE 0.6 mg/dL (0.6-1.3); POTASSIUM 3.6 mmol/L (3.5-5.1); TOTAL BILIRUBIN 0.6 mg/dL (0.0-1.0)
[2020-02-20 09:21] LABS: ALBUMIN 2.5 g/dL (3.4-5.0)
--- NOTE | 2020-02-20 10:10 | NUR ---
MILD TOLERABLE BACK PAIN CLAIMED /10
--- NOTE | 2020-02-20 11:46 | NUR ---
02/20/20 RD INITIAL ASSESSMENT COMPLETED PLEASE REFER TO NUTRITION ASSESSMENT UNDER CARE ACTIVITY FOR ESTIMATED NUTRITIONAL NEEDS. 1. CONTINUE REGULAR DIET TOLERATED 2. RECOMMEND CHANGE GLUCERNA TO ENSURE TID 3. RD TO FOLLOW-UP 3-5 DAYS, MODERATE RISK STEVEN BOLTON, RD
--- NOTE | 2020-02-20 12:05 | NUR ---
BLANK BANK CONTACTED TO FOLLOW THE CONVALESCENT PLASMA, STILL NOT AVAILABLE
[2020-02-20] MEDS: REMDESIVIR (EUA) 100 MG in NACL 0.9% 100 ML IV SCH (12:27)
--- NOTE | 2020-02-20 12:36 | NUR ---
FULLY AWAKE AND ALERT, NOT IN DISTRESS, ASSISTED TO THE TOILET, VOIDED FREELY. DUE MEDICATION GIVEN
--- NOTE | 2020-02-20 14:27 | NUR ---
BLOOD BANK CONTACTED AND SPOKE WITH MS LEE, CONVALESCENT STILL NOT AVAILABLE
--- NOTE | 2020-02-20 15:43 | NUR ---
COMPLAINED OF SEVERE BACK PAIN, 09/24, MORPHINE 2MG IV ORDERED PRN GIVEN, VITAL SIGNS TAKEN AND RECORDED, STILL ON OXYMIZER 15L/MIN, O2 SAT 97% ON LEFT LATERAL POSITION.
[2020-02-20 16:00] VITALS: BP 134/78
--- NOTE | 2020-02-20 17:05 | NUR ---
CHECKED ON HER, NOT IN DISTRESS NOTED.
[2020-02-20] MEDS: HYDROcodone/APAP 5/325 MG 1 TAB TAB PO PRN (18:53)
--- NOTE | 2020-02-20 18:53 | NUR ---
COMPLAINED OF BACK PAIN 5/10, NORCO 1 TAB ORDERED PRN GIVEN, KEPT COMFORTABLE TO BED
--- NOTE | 2020-02-20 19:21 | NUR ---
DISCHARGED IN STABLE CONDITION FOR CONTINUITY OF CARE
--- NOTE | 2020-02-20 19:25 | NUR ---
RECEIVED REPORT AND CONTINUITY OF CARE FROM AM NURSE.
[2020-02-20] MEDS ORDERED: MENTHOL/METHYL 10%-15% 114 GM TUBE TP PRN (19:40)
--- NOTE | 2020-02-20 21:35 | NUR ---
UPON PHYSICAL ASSESSMENT, PT IS A/OX4, HEAD IS NORMOCEPHALIC, CAMBODIAN SPEAKING, ABLE TO MAKE NEEDS KNOWN, GCS15, EQUAL BILATERAL EYE BROWS, SYMMETRICAL SMILE, PMMM. NO JVD NOTED AT THIS TIME. CHEST IS SYMMETRICAL, RESPIRATIONS, EVEN, UNLABORED, AND SPONTANEOUS ON 4L 02. ABD IS SOFT AND NON-TENDER, ACTIVE BOWEL TONES NOTED. SKIN IS SMOOTH, CDI, 22G IV TO LEFT FOREARM, PATENT AND ASYMPTOMATIC. BILATERAL PEDAL PULSES NOTED. REVIEWED POC WITH PATIENT. REVIEWED LABS. ORIENTED PT TO ROOM, CALL LIGHT, AND STAFF. SAFETY PRECAUTIONS IN PLACE. ADMINISTERED SCHEDULED MEDICATION. EDUCATION RENDERED. PT VERBALIZED UNDERSTANDING.
[2020-02-21] VITALS: BP 107/62
--- NOTE | 2020-02-21 01:12 | NUR ---
PT IS SLEEPING. 02 ATTACHED, PT IS IN STABLE CONDITION.
--- NOTE | 2020-02-21 03:30 | NUR ---
PT IS SLEEPING. NO SIGNS OF DISTRESS NOTED.
[2020-02-21] MEDS: MORPHINE SULFATE 2 MG/ML SYR IVP PRN ×4 (05:33→21:45)
--- NOTE | 2020-02-21 07:30 | NUR ---
RECEIVED REPORT FROM TRANSMISSION INSPECTOR RN. POC DISCUSSED. PT ON 15L OXYMIZER. NO SOB NOTED. DENIES CHEST PAIN. PIV INTACT AND IN PLACE. PT DENIES DISCOMFORT OR PAIN. WILL CONTINUE TO MONITOR.
[2020-02-21 07:35] LABS: ALBUMIN 2.1 g/dL (3.4-5.0); ANION GAP 14.6 (8-16); CARBON DIOXIDE 21.2 mmol/L (21-32); CREATININE 0.6 mg/dL (0.6-1.3); POTASSIUM 3.8 mmol/L (3.5-5.1); TOTAL BILIRUBIN 0.4 mg/dL (0.0-1.0)
[2020-02-21 07:48] LABS: BASOPHILS % (AUTO) 0.1 % (0.0-2.0); EOSINOPHILS % (AUTO) 0.2 % (0.0-4.0); LYMPHOCYTES # (AUTO) 0.4 K/uL (2.5-16.5); MEAN CORPUSCULAR HEMOGLOBIN 28 pg (27-31); MEAN CORPUSCULAR HGB CONC 33 g/dL (33-37); MEAN CORPUSCULAR VOLUME 84.7 fL (80-94); MONOCYTES # (AUTO) 0.1 K/uL (0.8-1.0); MONOCYTES % (AUTO) 0.9 % (1.7-9.3); NEUTROPHILS # (AUTO) 14.6 K/uL (1.8-7.7); PLATELET COUNT (AUTO) 332 K/uL (140-450); RED CELL DISTRIBUTION WIDTH 13.9 % (11.6-13.7); WHITE BLOOD COUNT (AUTO) 15.2 K/uL (4.8-10.8)
[2020-02-21 08:00] VITALS: BP 120/66
[2020-02-21 08:39] LABS: LYMPHOCYTES % (AUTO) 2.9 % (20.5-51.1); NEUTROPHILS % (AUTO) 95.9 % (42.2-75.2)
[2020-02-21] MEDS: MAGNESIUM OXIDE 400 MG TAB PO SCH (08:43)
[2020-02-21] MEDS: ASCORBIC ACID 500 MG TAB PO SCH (08:43)
[2020-02-21] MEDS: VITAMIN D 400 IU TAB PO SCH (08:43)
[2020-02-21] MEDS: ENOXAPARIN 100 MG/ML SYR SUBQ SCH ×2 (08:47→20:34)
[2020-02-21] MEDS: ZINC SULF 220 MG CAP PO SCH ×2 (08:58→20:33)
--- NOTE | 2020-02-21 09:00 | NUR ---
PT VERBALIZED BACK PAIN. 9/10 PAIN SCALE. PRN MED GIVEN. NO S/S OF RESPI DISTRESS. AFEBRILE. WILL CONTINUE TO MONITOR.
[2020-02-21] MEDS: REMDESIVIR (EUA) 100 MG in NACL 0.9% 100 ML IV SCH (12:38)
[2020-02-21] MEDS: NACL 0.9% 1,000 ML IV SCH (13:00)
[2020-02-21 16:00] VITALS: BP 111/59
--- NOTE | 2020-02-21 19:28 | NUR ---
ENDORSED PT TO SYSTEMS ENG RN. POC DISCUSSED. NO CHANGE OF CONDITION.
--- NOTE | 2020-02-21 19:29 | NUR ---
RECEIVED REPORT FROM ROMEO RNWENCESLAO. PT AOX4 ON 15L OXIMIZER. NO S/S RESPIRATORY DISTRESS. NO C/O PAIN AT THIS TIME. IV SITE LFA 22G, PATENT AND INTACT, INFUSING NS AT 60 ML/HR. SAFETY MEASURES IN PLACE. CALL LIGHT WITHIN REACH. WILL CONTINUE TO MONITOR
[2020-02-21 20:00] VITALS: BP_SYST 115; BP_SYST 133; BP_DIAS 68; BP_DIAS 69
--- NOTE | 2020-02-21 20:35 | NUR ---
ADMINISTERED SCHEDULED MEDS, MEDICATION EDUCATION GIVEN, PT VERBALIZED UNDERSTANDING, PT TOLERATED WELL. WILL CONTINUE TO MONITOR
--- NOTE | 2020-02-21 20:45 | NUR ---
INCENTIVE SPIROMETER DONE X10, [id number], TOLERATED WELL. NO DISTRESS NOTED. WILL CONTINUE TO MONITOR
--- NOTE | 2020-02-21 21:50 | NUR ---
ADMINISTERED PRN MORPHINE FOR PT C/O 8 BACK PAIN. TOLERATED WELL. WILL CONTINUE TO MONITOR
[2020-02-21] MEDS: HYDROcodone/APAP 5/325 MG 1 TAB TAB PO PRN (23:43)
--- NOTE | 2020-02-22 01:50 | NUR ---
PT ASLEEP IN BED. RESPIRATIONS EVEN AND UNLABORED. NO DISTRESS NOTED. WILL CONTINUE TO MONITOR
[2020-02-22 04:00] VITALS: BP 130/73
[2020-02-22] MEDS: NACL 0.9% 1,000 ML IV SCH ×2 (04:00→20:40)
--- NOTE | 2020-02-22 04:45 | NUR ---
PT ASLEEP IN BED. NO DISTRESS NOTED. WILL CONTINUE TO MONITOR
--- NOTE | 2020-02-22 07:30 | NUR ---
ENDORSED PT TO DAY RN FOR CONTINUITY OF CARE. PT IS IN STABLE CONDITION
[2020-02-22 08:00] VITALS: BP 125/63
[2020-02-22 08:24] LABS: BASOPHILS % (AUTO) 0.3 % (0.0-2.0); EOSINOPHILS % (AUTO) 0.1 % (0.0-4.0); HEMATOCRIT 38.9 % (36-48); HEMOGLOBIN 12.9 g/dL (12.0-16.0); LYMPHOCYTES # (AUTO) 0.5 K/uL (2.5-16.5); LYMPHOCYTES % (AUTO) 2.8 % (20.5-51.1); MEAN CORPUSCULAR HEMOGLOBIN 28 pg (27-31); MEAN CORPUSCULAR HGB CONC 33 g/dL (33-37); MEAN CORPUSCULAR VOLUME 84.6 fL (80-94); MONOCYTES # (AUTO) 0.1 K/uL (0.8-1.0); MONOCYTES % (AUTO) 0.4 % (1.7-9.3); NEUTROPHILS # (AUTO) 15.4 K/uL (1.8-7.7); NEUTROPHILS % (AUTO) 96.4 % (42.2-75.2); PLATELET COUNT (AUTO) 332 K/uL (140-450); RED CELL DISTRIBUTION WIDTH 14.2 % (11.6-13.7); WHITE BLOOD COUNT (AUTO) 15.9 K/uL (4.8-10.8)
[2020-02-22] MEDS: MAGNESIUM OXIDE 400 MG TAB PO SCH (08:47)
[2020-02-22] MEDS: ASCORBIC ACID 500 MG TAB PO SCH (08:47)
[2020-02-22] MEDS: VITAMIN D 400 IU TAB PO SCH (08:47)
[2020-02-22] MEDS: ENOXAPARIN 100 MG/ML SYR SUBQ SCH ×2 (08:49→21:00)
[2020-02-22] MEDS: HYDROcodone/APAP 5/325 MG 1 TAB TAB PO PRN (08:49)
[2020-02-22 08:58] LABS: ALBUMIN 2.1 g/dL (3.4-5.0); ANION GAP 12.5 (8-16); CARBON DIOXIDE 24.9 mmol/L (21-32); CREATININE 0.5 mg/dL (0.6-1.3); POTASSIUM 4.4 mmol/L (3.5-5.1); TOTAL BILIRUBIN 0.4 mg/dL (0.0-1.0)
--- NOTE | 2020-02-22 09:10 | NUR ---
SCHEDULED MORNING MEDICATION GIVEN. NORCO GIVEN FOR RIGHT POSTERIOR SHOULDER AND LOWER BACK PAIN 08/25. PATIENT'S O2 SAT DESATURATED TO LOWEST 56% WITH 15L OXIMIZER AFTER WALK TO THE RESTROOM. ENCOURAGED PATIENT TO TAKE DEEP BREATH AND RELAX, WAIT ABOUT 20 MINS. O2 SAT INCREASED TO 87% WITH 15L OXIMIZER. ENCOURAGED PATIENT TO TRY NOT TO USE THE BEDSIDE COMMODE. PATIENT REFUSED. WILL CONTINUE TO MONITOR.
[2020-02-22] MEDS: REMDESIVIR (EUA) 100 MG in NACL 0.9% 100 ML IV SCH (12:58)
--- NOTE | 2020-02-22 14:17 | NUR ---
BENGAY APPLIED TO RIGHT UPPER BACK AND SHOULDER FOR PAIN. PATIENT TOLERATED WELL. WILL CONTINUE TO MONITOR.
--- NOTE | 2020-02-22 15:15 | NUR ---
PATIENT STATED THAT THE BENGAY WORKS WELL FOR DECREASED THE SHOULDER AND BACK PAIN. O2 SAT RANGE FROM 83-88% WITH 15L OXIMIZER. PATIENT GOT SOB ON MILD EXERTION. ENCOURAGED PATIENT TO TAKE DEEP BREATH AND RELAX. SAFETY MEASURES IN PLACE, WILL CONTINUE TO MONITOR.
[2020-02-22 16:00] VITALS: BP 126/64
--- NOTE | 2020-02-22 18:38 | NUR ---
PATIENT'2 O2 SAT 88% WITH 15L NON REBREATHER. PATIENT STATED THAT IT'S INCONVENIENT FOR EATING AND DRINKING. INFORMED PATIENT TO ALTERNATIVE WITH EATING AND PUT BACK THE MASK. VERBALIZED UNDERSTANDING. WILL CONTINUE TO MONITOR.
--- NOTE | 2020-02-22 19:35 | NUR ---
ENDORSED PATIENT TO TELEPRINTER INSTALLER RN FOR CONTINUITY OF CARE. PATIENT IN STABLE CONDITION WITH 15L NRB.
[2020-02-22 20:00] VITALS: BP 149/80
--- NOTE | 2020-02-22 20:00 | NUR ---
RECEIVED REPORT FROM JULIANA FERRARA DAYSHIFT NURSE AT BEDSIDE FOR CONTINUITY OF CARE, PT IN STABLE CONDITION. CALLED LAB REGARDING CONVALESCENT PLASMA, THEY WILL DEFROST. CONSENT ALREADY SIGNED BY PT AND .
--- NOTE | 2020-02-22 21:00 | NUR ---
PT SITTING UP IN BED WITH 15 LITERS NON REBREATHER, PT WANTED IT TO BE REMOVED SO SHE CAN EAT, PT WAS TOLD THAT SHE NEEDS TO KEEP THE MASK ON AND PULL MASK UP FOR A BITE OF FOOD AT A TIME. PT WAS ALSO GIVEN A BEDSIDE COMMODE SINCE TRYING TO GET UP TO THE BATHROOM WITHOUT ANY SUPPLEMENTAL 02. PT VERBALIZED UNDERSTANDING. PT V/S FOLLOWS: T 100.0 P 95 R 23 B/P 149/80 02 84% WITH NON REBREATHER ON. PT ENCOURAGED TO KEEP MASK ON MUCH POSSIBLE IN BETWEEN BITES. PT ALSO GIVEN TYLENOL DUE TO INCREASED TEMPERATURE AND DISCOMFORT OF THE SHOULDER. PT ALSO GIVEN PRN BENGAY FOR C/O OF RIGHT SHOULDER AND BACK. COOLING MEASURES OF ICE PACKS PROVIDED. PT ALSO GIVEN DUE LOVENOX. WILL CONTINUE TO MONITOR PT TEMP AND 02. ALL UNIVERSAL FALLS PRECAUTIONS IN PLACE.
[2020-02-22] MEDS: ACETAMINOPHEN 325 MG TAB PO PRN (22:27)
--- NOTE | 2020-02-23 02:30 | NUR ---
PT SITTING UP IN BED WITH NON REBREATHER RUNNING AT 15 LITERS. PT 02 BOUNCING BETWEEN 84-92 % V/S STABLE PT STARTED ON CONVALESCENT PLASMA.
--- NOTE | 2020-02-23 03:15 | NUR ---
TRANSFUSION OF CONVALESCENT PLASMA IN PROGRESS, NO ADVERSE REACTION NOTED.
[2020-02-23 04:00] VITALS: BP 148/84
--- NOTE | 2020-02-23 04:10 | NUR ---
TRANSFUSION COMPLETED V/S STABLE NO ADVERSE REACTION NOTED.
--- NOTE | 2020-02-23 07:30 | NUR ---
RECEIVED REPORT FROM NIGHTSHIFT NURSE. PT RESTING IN BED. ABLE TO MAKE NEEDS KNOWN. RESPIRATIONS EVEN AND UNLABORED WITH NO SOB OR RESPIRATORY DISTRESS. SKIN WARM AND DRY TO TOUCH. IV SITE IN LFA 22 IS CLEAN, DRY, AND INTACT. SAFETY MEASURES IN PLACE. WILL CONTINUE TO MONITOR
[2020-02-23 08:00] VITALS: BP 143/77
[2020-02-23 08:18] LABS: BASOPHILS % (AUTO) 0.3 % (0.0-2.0); HEMATOCRIT 38.9 % (36-48); HEMOGLOBIN 12.9 g/dL (12.0-16.0); LYMPHOCYTES # (AUTO) 0.5 K/uL (2.5-16.5); LYMPHOCYTES % (AUTO) 3.4 % (20.5-51.1); MEAN CORPUSCULAR HEMOGLOBIN 28 pg (27-31); MEAN CORPUSCULAR HGB CONC 33 g/dL (33-37); MONOCYTES # (AUTO) 0.2 K/uL (0.8-1.0); MONOCYTES % (AUTO) 1.4 % (1.7-9.3); NEUTROPHILS # (AUTO) 14.1 K/uL (1.8-7.7); NEUTROPHILS % (AUTO) 94.9 % (42.2-75.2); PLATELET COUNT (AUTO) 371 K/uL (140-450); RED BLOOD CELL COUNT(AUTO) 4.57 MIL/uL (4.20-5.40); RED CELL DISTRIBUTION WIDTH 13.9 % (11.6-13.7); WHITE BLOOD COUNT (AUTO) 14.8 K/uL (4.8-10.8)
[2020-02-23 08:26] LABS: ANION GAP 14.1 (8-16); CREATININE 0.6 mg/dL (0.6-1.3); POTASSIUM 4.1 mmol/L (3.5-5.1)
[2020-02-23] MEDS: ENOXAPARIN 100 MG/ML SYR SUBQ SCH ×2 (08:39→21:34)
[2020-02-23] MEDS: HYDROcodone/APAP 5/325 MG 1 TAB TAB PO PRN (08:43)
[2020-02-23] MEDS: MAGNESIUM OXIDE 400 MG TAB PO SCH (08:45)
--- NOTE | 2020-02-23 08:53 | NUR ---
ADMINISTERED SCHED MED PRESCRIBED PER MD ORDER. PT TOLERATED WELL. MEDICATION EDUCTION PERFORMED. PT VERBALIZED UNDERSTANDING. SAFETY MEASURES IN PLACE. WILL CONTINUE TO MONITOR
--- NOTE | 2020-02-23 13:19 | NUR ---
DELIVERED LUNCH TRAY TO PATIENT. PATIENT O2 SAT 84% ON 15L NONREBREATHER, DESATS TO 66% W/O MASK. ATTEMPTED TO USE OXYMIZER SO PATIENT CAN EAT LUNCH, SAT W/ 15L OXYMIZER 70% AND DOES NOT INCREASE. PLACED PATIENT BACK ON 15L NONREBREATHER, EDUCATED TO TAKE OFF, EAT A BITE OR 2, THEN PUT BACK ON W/ DEEP BREATHING TECHINIQUES. PATIENT VERBALIZED UNDERSTANDING. SAFETY MEASURES IN PLACE. WILL CONT TO MONITOR.
[2020-02-23] MEDS: NACL 0.9% 1,000 ML IV SCH (14:03)
--- NOTE | 2020-02-23 14:03 | NUR ---
ADMINISTERED SCHED MED PRESCRIBED PER MD ORDER. PT TOLERATED WELL. MEDICATION EDUCATION PERFORMED. PT VERBALIZED UNDERSTANDING. SAFETY MEASURES IN PLACE. WILL CONTINUE TO ,MONITOR
--- NOTE | 2020-02-23 14:30 | NUR ---
AMBULATED TO [facility] PATIENT PRESENTING WITH DESCENDING SATURATION TO 80% ON SUPPLEMENTAL OXYGEN AT 15 LPM VIA PARTIAL REBREATHER CHANGED OXYGEN DEVICE TO A NON REBREATHER AT 15 LPM PLUS NASAL CANNULA AT 6 LPM WITH HUMIDIFIER SATURATION ASCENDING TO 89%-90%
--- NOTE | 2020-02-23 15:30 | NUR ---
PT RESTING IN BED. ABLE TO MAKE NEEDS KNOWN. NO SIGNS OF DISTRESS NOTED. WILL CONTINUE TO MONITOR
[2020-02-23 16:00] VITALS: BP 140/79
--- NOTE | 2020-02-23 17:15 | NUR ---
PT RESTING IN BED. ABLE TO MAKE NEEDS KNOWN. NO SIGNS OF DISTRESS NOTED. WILL CONTINUE TO MONITOR
--- NOTE | 2020-02-23 18:30 | NUR ---
HOURLY ROUNDING. PT RESTING IN BED. ABLE TO MAKE NEEDS KNOWN. NO SIGNS OF DISTRESS NOTED. WILL CONTINUE TO MONITOR
--- NOTE | 2020-02-23 19:20 | NUR ---
ENDORSED TO NIGHTSHIFT NURSE FOR CONTINUITY OF CARE. PT IS STABLE
--- NOTE | 2020-02-23 19:21 | NUR ---
RECD. RESTING IN BED, AWAKE, A/OX4. WITH NOTED SOB ON EXERTION AND WHEN TALKING. 02 SAT DECREASED TOP 80- 88%, DEPENDING ON POSITION IN BED AND WHEN TALKING. IV OF NS AT INFUSING AT 60 ML/HR, LEFT FOREARM G22. ADVISED TO DO DEEP BREATHING, USE THE INCENTIVE SPIROMETER EVERY HOUR WHILE WATCHING TV AND LIE IN BED SEMI PRONE TO INCREASED 02 SATURATION. VERBALIZED UNDERSTANDING. USES THE BEDSIDE COMMODE. DENIES PAIN 0/10.
[2020-02-23 20:00] VITALS: BP 142/86
--- NOTE | 2020-02-23 21:00 | NUR ---
DISCUSSED PLAN OF CARE WITH JANES AQUINO LVN.
--- NOTE | 2020-02-23 21:34 | NUR ---
DUE MEDICATION GIVEN. NO RESPIRATORY DISTRESS NOTED.
--- NOTE | 2020-02-24 | NUR ---
SLEEPING ON HER LEFT SIDE, 02 SAT - 90%. NO SOB NOTED.
--- NOTE | 2020-02-24 02:00 | NUR ---
CHECKED PATIENT, COMFORTABLE IN BED, ASLEEP. ON NON-REBREATHER 15 LITERS, 02 SAT - 90%.
[2020-02-24] MEDS: NACL 0.9% 1,000 ML IV SCH ×3 (02:10→22:40)
[2020-02-24 04:00] VITALS: BP 128/72
--- NOTE | 2020-02-24 04:15 | NUR ---
SITTING ON BED FOR A WHILE TO USE THE BSC, NOTED SOB ON EXERTION. INQUIRED IS SHE NEEDS HELP TO GO TO BSC, STATED "NO, I'M OK." WANTS MEDICINE FOR COUGH. WILL INFORM DR. RAMOS.
[2020-02-24] MEDS ORDERED: PROMETHAZINE DM 6.25/15MG-5ML ORASYR PO PRN (04:25)
--- NOTE | 2020-02-24 04:25 | NUR ---
DR. RAMOS ORDERED PROMETHAZINE DM FOR COUGH.
--- NOTE | 2020-02-24 07:15 | NUR ---
CONDITION REMAIN STABLE. ENDORSED TO AM SHIFT NURSE FOR CONTINUITY OF CARE.
--- NOTE | 2020-02-24 07:20 | NUR ---
RECEIVED REPORT FROM NIGHTSHIFT NURSE. PT RESTING IN BED. ABLE TO MAKE NEEDS KNOWN. RESPIRATIONS EVEN AND UNLABORED WITH NO SOB OR RESPIRATORY DISTRESS. SKIN WARM AND DRY TO TOUCH. IV SITE IN LFA 22G IS CLEAN, DRY, AND INTACT. SAFETY MEASURES IN PLACE. WILL CONTINUE TO MONITOR
[2020-02-24 08:00] VITALS: BP 135/75
[2020-02-24 08:28] LABS: BASOPHILS % (AUTO) 0.2 % (0.0-2.0); HEMATOCRIT 37.9 % (36-48); HEMOGLOBIN 12.8 g/dL (12.0-16.0); LYMPHOCYTES # (AUTO) 0.3 K/uL (2.5-16.5); LYMPHOCYTES % (AUTO) 2.3 % (20.5-51.1); MEAN CORPUSCULAR HEMOGLOBIN 29 pg (27-31); MEAN CORPUSCULAR HGB CONC 34 g/dL (33-37); MONOCYTES # (AUTO) 0.2 K/uL (0.8-1.0); MONOCYTES % (AUTO) 1.7 % (1.7-9.3); NEUTROPHILS # (AUTO) 13.8 K/uL (1.8-7.7); NEUTROPHILS % (AUTO) 95.8 % (42.2-75.2); PLATELET COUNT (AUTO) 355 K/uL (140-450); RED BLOOD CELL COUNT(AUTO) 4.46 MIL/uL (4.20-5.40); RED CELL DISTRIBUTION WIDTH 14.1 % (11.6-13.7); WHITE BLOOD COUNT (AUTO) 14.4 K/uL (4.8-10.8)
[2020-02-24] MEDS: ENOXAPARIN 100 MG/ML SYR SUBQ SCH ×2 (08:48→20:44)
[2020-02-24] MEDS: MAGNESIUM OXIDE 400 MG TAB PO SCH (08:48)
[2020-02-24 08:49] LABS: ANION GAP 13.9 (8-16); CARBON DIOXIDE 24.4 mmol/L (21-32); CREATININE 0.5 mg/dL (0.6-1.3); POTASSIUM 4.3 mmol/L (3.5-5.1)
--- NOTE | 2020-02-24 08:58 | NUR ---
ADMINISTERED SCHED MED PRESCRIBED PER MD ORDER. PT TOLERATED WELL. MEDICATION EDUCATION PERFORMED. PT VERBALIZED UNDERSTANDING. SAFETY MEASURES IN PLACE. WILL CONTINUE TO MONITOR
[2020-02-24] MEDS: ACETAMINOPHEN 325 MG TAB PO PRN (10:59)
[2020-02-24] MEDS: MORPHINE SULFATE 2 MG/ML SYR IVP PRN ×2 (14:25→21:28)
--- NOTE | 2020-02-24 14:25 | NUR ---
PT COMPLAINED OF SEVERE BACK PAIN. ADMINISTERED PRN MORHPINE PRESCRIBED PER MD ORDER. PT TOLERATED WELL. WILL CONTINUE TO MONITOR
[2020-02-24 16:00] VITALS: BP 129/77
--- NOTE | 2020-02-24 16:04 | NUR ---
HOURLY ROUNDING. PT RESTING IN BED. ABLE TO MAKE NEEDS KNOWN. RESPIRATIONS EVEN AND UNLABORED WITH NO SOB OR RESPIRATORY DISTRESS. SKIN WARM AND DRY TO TOUCH. SAFETY MEASURES IN PLACE. WILL CONTINUE TO MONITOR
--- NOTE | 2020-02-24 17:15 | NUR ---
PT SATURATION AT 84-86 ON 15L NRM AND 4L NC. RT AND MD MADE AWARE. WILL CONTINUE TO MONITOR
--- NOTE | 2020-02-24 19:05 | NUR ---
ENDORSED TO NIGHTSHIFT NURSE FOR CONTINUITY OF CARE. PT IS STABLE
--- NOTE | 2020-02-24 19:10 | NUR ---
RECEIVED PATIENT FROM AM SHIFT NURSE FOR CONTINUITY OF CARE. AAOX4. RESPIRATIONS SLIGHTLY LABORED, TACHYPNEIC. CONTINUES ON O2 15L VIA NRB, 6L NC, O2SAT 91%. SKIN WARM, DRY. SALINE LOCK TO LEFT FOREARM 22G PATENT/INTACT. NO C/O PAIN. NO S/S ACUTE DISTRESS. ABDOMEN SOFT, NONTENDER, NONDISTENDED. BOWEL SOUNDS ACTIVE X4 QUADRANTS. PATIENT CONTINENT OF B/B. PLAN OF CARE DISCUSSED. CALL LIGHT WITHIN REACH. SAFETY PRECAUTIONS IN PLACE. ISOLATION PRECAUTIONS OBSERVED BY ALL STAFF.
--- NOTE | 2020-02-24 21:15 | NUR ---
DUE MEDS GIVEN. CALL LIGHT WITHIN REACH. SAFETY PRECAUTIONS IN PLACE. ISOLATION PRECAUTIONS OBSERVED BY ALL STAFF.
--- NOTE | 2020-02-24 23:30 | NUR ---
SPOKE TO OVER THE PHONE AND UPDATED HIM ON PATIENT'S STATUS AND PLAN OF CARE. CALL LIGHT WITHIN REACH. SAFETY PRECAUTIONS IN PLACE. ISOLATION PRECAUTIONS OBSERVED BY ALL STAFF.
[2020-02-25] VITALS (36 sets, daily range): BP systolic 80–178; BP diastolic 44–97
--- NOTE | 2020-02-25 01:15 | NUR ---
MADE ROUNDS. PATIENT ASLEEP. NO S/S ACUTE DISTRESS. CALL LIGHT WITHIN REACH. ISOLATION PRECAUTIONS OBSERVED BY ALL STAFF.
[2020-02-25] MEDS: ACETAMINOPHEN 325 MG TAB PO PRN (01:54)
--- NOTE | 2020-02-25 03:30 | NUR ---
PATIENT IN PRONE POSITION. CONTINUES ON O2 15L VIA NRB, 10L VIA NC. O2SAT 86%. PATIENT TACHYPNEIC BUT STILL ALERT AND ORIENTED. FREQUENT ROUNDS BY STAFF.
--- NOTE | 2020-02-25 05:00 | NUR ---
PLACED PT ON THE BIPAP ON SETTING 12/6, R 16, FIO2 100% DUE TO RESPIRATORY DISTRESS.
--- NOTE | 2020-02-25 05:04 | NUR ---
PATIENT RESTING COMFORTABLY IN BED. CALL LIGHT WITHIN REACH. SAFETY PRECAUTIONS IN PLACE. ISOLATION PRECAUTIONS OBSERVED BY ALL STAFF.
--- NOTE | 2020-02-25 05:39 | NUR ---
PATIENT CURRENTLY ON BIPAP WITH O2AT > 90%. PATIENT AWAKE AND ALERT. NO DISTRESS FROM PATIENT. CALL LIGHT WITHIN REACH. FREQUENT ROUNDS BY ALL STAFF. ISOLATION PRECAUTIONS OBSERVED.
--- NOTE | 2020-02-25 07:00 | NUR ---
PATIENT IN DISTRESS. O2SAT LOW 80s, PATIENT'S BREATHING IS LABORED AND TACHYPNEIC. RT CALLED TO BEDSIDE. PATIENT VERBALIZED DIFFICULTY BREATHING. TRIPOD POSITION AT EDGE OF BED. STAFF MONITORING PATIENT CLOSELY.
--- NOTE | 2020-02-25 07:15 | NUR ---
PATIENT'S O2SAT IS IN LOW 80s ON BIPAP, INFORMED MD WITH ORDERS TO INTUBATE. PATIENT IS ALERT, TACHYPNEIC. RT AT BEDSIDE.
--- NOTE | 2020-02-25 07:30 | NUR ---
CALLED DAJUAN REGARDING PATIENT'S CHANGE IN CONDITION. HE DIDNT ANSWER, STAFF LEFT MESSAGE.
[2020-02-25] MEDS ORDERED: INTUBATION KIT MC ONE (07:41)
--- NOTE | 2020-02-25 07:45 | NUR ---
RECIVED PT ON BIPAP IN DISTRESS DR INFORMED OF RESULTS VERBAL ORDERS TO RN TO INTUBATE RE DR CALL AND INTUBATE PT WITH 7.5 ETT NO COMPLICATIONS PLACED NN VENT WITH SETTINGS CHARTED BREATH SOUNDS PRESE NT BILAT X RAY ORDERED WILL CONTINUE TO MONITOR PT
--- NOTE | 2020-02-25 07:53 | NUR ---
ENDORSED PATIENT TO AM SHIFT NURSE FOR CONTINUITY OF CARE.
--- NOTE | 2020-02-25 07:55 | NUR ---
RECEIVED PT FROM TRAVEL TICKETING REVIEWER NURSE, PT IS AWAKE AND ALERT, CITIZEN OF [place] SPEAKING, SEATED ON THE BED WITH O2 SATURATION AT 78%, ON BIPAP, MD ORDERED FOR PT TO BE INTUBATED, PT VERBALIZED UNDERSTANDING AND AGREED, WILL NOTIFY ER MD AND PREPARE INTUBATION KIT, WILL FOLLOW THROUGH AND MONITOR PT.
[2020-02-25 07:57] LABS: BASOPHILS % (AUTO) 0.1 % (0.0-2.0); HEMATOCRIT 40.2 % (36-48); HEMOGLOBIN 13.4 g/dL (12.0-16.0); LYMPHOCYTES # (AUTO) 0.4 K/uL (2.5-16.5); LYMPHOCYTES % (AUTO) 2.6 % (20.5-51.1); MEAN CORPUSCULAR HEMOGLOBIN 29 pg (27-31); MEAN CORPUSCULAR HGB CONC 33 g/dL (33-37); MEAN CORPUSCULAR VOLUME 85.7 fL (80-94); MONOCYTES # (AUTO) 0.4 K/uL (0.8-1.0); MONOCYTES % (AUTO) 2.4 % (1.7-9.3); NEUTROPHILS # (AUTO) 14.8 K/uL (1.8-7.7); NEUTROPHILS % (AUTO) 94.9 % (42.2-75.2); PLATELET COUNT (AUTO) 392 K/uL (140-450); RED CELL DISTRIBUTION WIDTH 14.4 % (11.6-13.7); WHITE BLOOD COUNT (AUTO) 15.6 K/uL (4.8-10.8)
[2020-02-25 08:29] LABS: CARBON DIOXIDE 23.7 mmol/L (21-32); CREATININE 0.7 mg/dL (0.6-1.3)
[2020-02-25] MEDS ORDERED: PROPOFOL 1000 MG/100 ML PREMIX 100 ML IV ONE (08:32)
--- NOTE | 2020-02-25 08:33 | NUR ---
INTUBATION WAS STARTED TO PT NOW.
[2020-02-25] MEDS ORDERED: PROPOFOL 200 MG/20 ML VIAL IV ONE (08:45)
--- NOTE | 2020-02-25 08:45 | NUR ---
PATIENT INTUBATED BY ED MD DR BRUNA [place] AND ORDERED TO STARTED PROPOFOL AT 10 MCG/KG/MIN, BILATERAL SOFT WRIST RESTRAINTS IN PLACE. SAFETY MEASURES IN PLACE.
--- NOTE | 2020-02-25 09:15 | NUR ---
ENDORSED PT TO IC RNDEO, FOR CONTINUITY OF CARE, PT WAS INTUBATED AT 0845, ON PROPOFOL DRIP,
[2020-02-25 09:43] LABS: ANION GAP 16.2 (8-16); POTASSIUM 4.2 mmol/L (3.5-5.1)
--- NOTE | 2020-02-25 11:09 | NUR ---
CARMEN CATHETER SUCCESSFULLY INSERTED, LIGHT YELLOW URINE RETURN, SECURED AND DATED.
--- NOTE | 2020-02-25 11:19 | NUR ---
PULLED ETT UOT FROM 25CM TO 22CM AT GUM PER XRAY
--- NOTE | 2020-02-25 11:25 | NUR ---
OGT INSERTED AND AWAITING FOR CHEST XRAY TO CONFIRM PLACEMENT.
--- NOTE | 2020-02-25 13:25 | NUR ---
CALLED PICC LINE NURSE AT [phone] AND SPOKE TO HARIKA AND SAID THAT SHE WILL INFORM ISAIAH, PICC LINE NURSE FOR PT'S PICC LINE INSERTION, INFORMATION WAS GIVEN TO HARIKA. NOTIFIED DEO, POLICE LIAISON OFFICER.
--- NOTE | 2020-02-25 13:28 | NUR ---
DR KIDD IS ROUNDING ON PATIENT. ORDERED TO INCREASED PROPOFOL T 30 MCG/KG/MIN, FENTANYL DRIP, FNS CONSULT. REPEATED AND CONFIRMED ORDER, WILL INPUT ORDERS.
[2020-02-25] MEDS ORDERED: FUROSEMIDE 20 MG/2 ML VIAL IVP SCH (14:00)
[2020-02-25] MEDS ORDERED: NOREPINEPHRINE 16 MG in DEXTROSE 5% 250 ML IV PRN (14:05)
[2020-02-25] MEDS: fentaNYL citrate 1 MG in NACL 0.9% 80 ML IV PRN (14:47)
--- NOTE | 2020-02-25 14:51 | NUR ---
ADMINISTERED LASIX VIA IVP PER MD ORDER. RT IS AT BEDSIDE DOING ABG.
[2020-02-25] MEDS: MAGNESIUM OXIDE 400 MG TAB PO SCH (15:14)
[2020-02-25] MEDS: ENOXAPARIN 100 MG/ML SYR SUBQ SCH ×2 (15:15→23:31)
--- NOTE | 2020-02-25 15:15 | NUR ---
ADMINISTERED AM SCHEDULED MEDS VIA OGT AND SUBQ, FLUSHED BEFORE AND AFTER MEDS. PATIENT IS ON ETT TO VENT, AV/VC FIO1 100%, RATE 24, PEEP 14, TIDAL VOLUME 500, SPO2 AT 91% AT THIS TIME. FLACC 0. TELE MONITOR IN PLACE. SAFETY MEASURES IN PLACE.
[2020-02-25] MEDS: NACL 0.9% 1,000 ML IV SCH (15:20)
--- NOTE | 2020-02-25 15:47 | NUR ---
02/25/20 RD FOLLOW UP COMPLETED PLEASE REFER TO NUTRITION ASSESSMENT UNDER CARE ACTIVITY FOR ESTIMATED NUTRITIONAL NEEDS. 1. RECOMMEND JEVITY 1.2 @ 45 ML/HR WITH PROSOURCE ONCE DAILY. START AT 10 ML/HR AND INCREASE Q6H -THIS WILL PROVIDE 1356 KCAL AND 74 GM OF PROTEIN, MEETING 100% OF ESTIMATED NUTRIENT NEEDS 2. RECOMMEND FLUSH OF [address] PRN FOR CHANGES 4. RD TO FOLLOW-UP 2-3 DAYS, HIGH RISK BETZAIDA KEATING RD
--- NOTE | 2020-02-25 17:19 | NUR ---
RECEIVED A CALL FROM PATIENT'S NHAN, UPDATED NHAN WITH PATIENT'S CURRENT CONDITION, NHAN WAS AWARE.
--- NOTE | 2020-02-25 17:50 | NUR ---
PATIENT'S NHAN IS VISITING PATIENT BY PARKING LOT WINDOW-SIDE.
--- NOTE | 2020-02-25 19:25 | NUR ---
RECEIVED PATIENT FROM DAY SHIFT ON AC 24,450, PEEP 14,100%. VENT PLUGGED INTO RED OUTLET. BMV AT BEDSIDE. ETT SECURED. ALARMS SET. NO RESPIRATORY DISTRESS NOTED. WILL CONT TO MONITOR
--- NOTE | 2020-02-25 19:30 | NUR ---
ENDORSED PATIENT TO BOAT FUELER NURSE ANGÉLICA FOR CONTINUITY OF CARE.
--- NOTE | 2020-02-25 20:00 | NUR ---
RECEIVED REPORT FROM DEO RN DAYSHIFT NURSE AT BEDSIDE FOR CONTINUITY OF CARE, PT IN STABLE CONDITION. PT IS AOX1 ETT TUBE TO VENT. TP ALSO HAS OT TUBE WELL CARMEN CATHETER. PT IS ON 3 DIFFERENT SEDATIVE MEDS PROPOFOL. LEVOPHED AND FENTANYL. RUNNING VIA R/FA ORDERED. V/S FOLLOWS: T 97.1 P 56 R 28 B/P 132/77 02 98%. ALL FALLS, DROPLET AND ASPIRATIONS PRECAUTIONS IN PLACE.
--- NOTE | 2020-02-25 20:30 | NUR ---
PICC LINE PLACED BY PICC LINE NURSE TO RIGHT UPPER ARM DOUBLE LUMEN PICC LINE.
--- NOTE | 2020-02-25 21:00 | NUR ---
PT NOTED ALERT , EYES OPENED AND SHE IS RESPONDING TO VERBAL QUESTIONS WITH A NOD. B/P WENT UP TO 185/93 AND 02 DROPPED TO 89%. CALED RT AND PT MAXED OUT AT 100%FI02. ALSO CALLED MD HOLLAND AND EXPLAINED THAT PT IS AWAKE, SHE SAID OK TO TITRATE SEDATION MEDICATION TO RASS -3 SCORE. PROPOFOL TITRATED FROM 30 TO 35 AND FENTANYL TITRATED FORM 0.5 TO 1MCG /MIN. WILLL CONTINUE TO MONITOR PT FOR SEDATION.
--- NOTE | 2020-02-25 21:30 | NUR ---
PT GIVEN ALL DUE MEDS LOVENOX GIVEN PLATELETS ARE 392. JEVITY HUNG AND RUNNING AT 10MLS/HR.
[2020-02-25] MEDS: PROPOFOL 1000 MG/100 ML PREMIX 100 ML IV PRN ×2 (21:40→23:29)
--- NOTE | 2020-02-25 22:00 | NUR ---
PT MORE AWAKE IN BED, PROPOFOL TIRATED UP TO 35, DUE TO PT WAKING UP AND REMAINING AWAKE.
--- NOTE | 2020-02-25 23:00 | NUR ---
PT WAS TITRATED UP TO 40, DUE TO REAMING AWAKE AND SITTING UP IN BED . FENTAYL ALSO INCREASED. PT WENT BCK TO SLEEP.
[2020-02-26] VITALS (50 sets, daily range): BP systolic 91–137; BP diastolic 48–78
--- NOTE | 2020-02-26 | NUR ---
PT WAS TURNED AND REPOSITIONED IN BED. PROPOFOL INCREASED TO 45.
--- NOTE | 2020-02-26 02:00 | NUR ---
PT PROPOFOL INCREASED TO 50, DUE TO PT STAYING AWAKE.
[2020-02-26] MEDS: PROPOFOL 1000 MG/100 ML PREMIX 100 ML IV PRN ×5 (02:46→18:58)
--- NOTE | 2020-02-26 04:00 | NUR ---
PT WAS TURNED, CHANGED AND REPOSITIONED IN BED, ORAL CARE PROVIDED. V/S STABLE . ALL ORDERED PRECAUTIONS IN PLACE NO RESIDUAL NOTED.
[2020-02-26] MEDS ORDERED: fentaNYL citrate 0.05 MG/ML VIAL ONE (05:00)
--- NOTE | 2020-02-26 05:08 | NUR ---
PUILLED OUT FENTANYL VIAL BY ACCIDENT FOUND MEDICATION RECONSTITUTED IN NARC BOX. RETURNED VIAL
[2020-02-26] MEDS: fentaNYL citrate 1 MG in NACL 0.9% 80 ML IV PRN (05:09)
[2020-02-26 06:42] LABS: ANION GAP 10.3 (8-16); CARBON DIOXIDE 24.4 mmol/L (21-32); CREATININE 0.9 mg/dL (0.6-1.3); POTASSIUM 3.7 mmol/L (3.5-5.1)
[2020-02-26 06:48] LABS: BASOPHILS # (AUTO) 0.1 K/uL (0.00-0.22); BASOPHILS % (AUTO) 0.5 % (0.0-2.0); EOSINOPHILS # (AUTO) 0.1 K/uL (0-0.4); EOSINOPHILS % (AUTO) 0.8 % (0.0-4.0); HEMATOCRIT 35.8 % (36-48); HEMOGLOBIN 11.6 g/dL (12.0-16.0); LYMPHOCYTES # (AUTO) 0.4 K/uL (2.5-16.5); LYMPHOCYTES % (AUTO) 2.7 % (20.5-51.1); MEAN CORPUSCULAR HEMOGLOBIN 29 pg (27-31); MEAN CORPUSCULAR HGB CONC 33 g/dL (33-37); MEAN CORPUSCULAR VOLUME 88.5 fL (80-94); MONOCYTES # (AUTO) 0.2 K/uL (0.8-1.0); MONOCYTES % (AUTO) 1.2 % (1.7-9.3); NEUTROPHILS # (AUTO) 14.4 K/uL (1.8-7.7); NEUTROPHILS % (AUTO) 94.8 % (42.2-75.2); PLATELET COUNT (AUTO) 290 K/uL (140-450); RED BLOOD CELL COUNT(AUTO) 4.04 MIL/uL (4.20-5.40); RED CELL DISTRIBUTION WIDTH 14.6 % (11.6-13.7); WHITE BLOOD COUNT (AUTO) 15.2 K/uL (4.8-10.8)
--- NOTE | 2020-02-26 07:15 | NUR ---
HANDOFF RECEIVED FROM PILOT PLANT OPERATOR RN. PT IS SEDATED RASS -3. PT IS ON ETT TO VENT, FIO2 100%, R 24, PEEP 14, VT 450. PT HAS LEROY PICC AND LEROY 20 G. LEVOPHED IS RUNNING AT 2 MCG/MIN, PROPOFOL AT 50 MCG/KG/MIN, FETANYL AT 1.5 MCG/KG/HR, AND NS AT 60 ML/HR. PT IS OG TUBE TO FEED WITH JEVITY RUNNING AT 30 ML/HR WITH FWF [address] AT THIS TIME. PT HAS CARMEN CATHETER IN PLACE. HOB 30 DEG, WITH BED IN LOW, LOCKED POSITION. WILL CONTINUE TO MONITOR.
--- NOTE | 2020-02-26 07:54 | NUR ---
RECEIVED INTUBATED PT WITH A ETT 7.5 @22 TEETH/GUM ON VENT. SETTINGS A/C VC24, VT450, PEEP14 AND FIO2 100%. PT SEDATED AT THIS TIME NOT IN ANY DISTRESS. VENT IS PLUGGED INTO A RED OUTLET WITH ALARMS ON AND FUNCTIONING. ETT IS SECURE WITH A PATENT AIRWAY. WILL CONTINUE TO MONITOR.
[2020-02-26] MEDS: NACL 0.9% 1,000 ML IV SCH (08:00)
[2020-02-26] MEDS: PANTOPRAZOLE 40 MG INJ VIAL IVP SCH (08:30)
[2020-02-26] MEDS: MAGNESIUM OXIDE 400 MG TAB PO SCH (08:30)
[2020-02-26] MEDS: ENOXAPARIN 100 MG/ML SYR SUBQ SCH ×2 (08:43→20:36)
[2020-02-26] MEDS ORDERED: CRUSHER, PILL MC ONE (08:44)
--- NOTE | 2020-02-26 08:45 | NUR ---
PT. ADMITTED WITH LOW ABDIAS SCALE AT RISK AND COVID POSITIVE, CONTINUE TO FOLLOW PRESSURE INJURY PREVENTION INTERVENTIONS. -TURN AND REPOSITION PATIENT Q 2H -ASSESS AND MONITOR SKIN CONDITION DURING POSITION CHANGE -OFFLOAD BILATERAL HEELS BY PLACING PILLOWS UNDER CALVES AT ALL TIMES, UNLESS OTHERWISE CONTRAINDICATED -PRESSURE REDISTRIBUTION BY PLACING PILLOWS AND OFFLOADING SACRALCOCCYX -KEEP SKIN CLEAN AND DRY AT ALL TIMES.
--- NOTE | 2020-02-26 09:10 | NUR ---
MEDICATIONS ADMINISTERED PER ORDER. PT TOLERATED WELL. PT HAD 0 ML RESIDUAL FROM TUBE FEED. VAP ORAL CARE AND CARMEN CARE PROVIDED. TEMPERATURE WAS 98.9 AXILLARY.
--- NOTE | 2020-02-26 09:37 | NUR ---
FIO2 TITRATED TO 95% NURSE MADE AWARE. WILL CONTINUE TO MONITOR.
--- NOTE | 2020-02-26 12:56 | NUR ---
DR. KIDD ASSESSING PATIENT AT THIS TIME
[2020-02-26] MEDS ORDERED: FUROSEMIDE 20 MG/2 ML VIAL IVP SCH (13:00)
[2020-02-26] MEDS: MIDAZOLAM MDV 100 MG in NACL 0.9% 80 ML IV PRN (13:12)
[2020-02-26] MEDS: fentaNYL citrate - 50mL vial 2.5 MG in NACL 0.9% 200 ML IV PRN (13:49)
--- NOTE | 2020-02-26 15:05 | NUR ---
PT PLACED INTO PRONE POSITION FIO2 TITRATED TO 85%. WILL CONTINUE TO MONITOR.
--- NOTE | 2020-02-26 15:05 | NUR ---
PT PLACED INTO PRONE POSITION. RT DANAY AT BEDSIDE FOR SUPPORT. PT TOLERATED WELL. O2 SAT 99%.
--- NOTE | 2020-02-26 17:15 | NUR ---
PT REMAINS IN PRONE POSITION, VSS, NO SIGNS OF RESPIRATORY DISTRESS NOTED. TEMPERATURE 99.7 AXILLARY. HEMANTH CONTINUE TO MONITOR
--- NOTE | 2020-02-26 17:48 | NUR ---
FIO2 TITRATED TO 80% PT REMAINS IN PRONE POSITION TOLERATING WELL. ETT IS SECURE WITH A PATENT AIRWAY. VENT ALARMS ON AND FUNCTIONING.
--- NOTE | 2020-02-26 19:15 | NUR ---
HANDOFF GIVEN TO CHAIR AND COUCH MAKER RN FOR CONTINUITY OF CARE
--- NOTE | 2020-02-26 19:45 | NUR ---
RECEIVED PATIENT FROM DAY SHIFT ON AC 24,450, PEEP 12,80% FIO2. VENT PLUGGED INTO RED OUTLET. BMV AT BEDSIDE. ETT SECURED. ALARMS SET. PATIENT IS IN PRONE POSITION. SX MINIMAL AMOUNT OF SECRETION. AIRWAY PATENT. WILL CONT TO MONITOR.
[2020-02-27] VITALS (76 sets, daily range): BP systolic 93–140; BP diastolic 48–80
[2020-02-27] MEDS: PROPOFOL 1000 MG/100 ML PREMIX 100 ML IV PRN ×5 (00:22→19:30)
[2020-02-27] MEDS: NACL 0.9% 1,000 ML IV SCH ×2 (00:40→15:32)
--- NOTE | 2020-02-27 05:31 | NUR ---
PATIENT PLACED BACK IN SUPINE. AIRWAY PATENT. ETT SECURED. WILL CONT TO MONITOR
[2020-02-27 06:48] LABS: ANION GAP 7.9 (8-16); CARBON DIOXIDE 31.1 mmol/L (21-32); CREATININE 0.8 mg/dL (0.6-1.3)
[2020-02-27 07:11] LABS: BASOPHILS % (AUTO) 0.3 % (0.0-2.0); HEMATOCRIT 31.7 % (36-48); HEMOGLOBIN 10.3 g/dL (12.0-16.0); LYMPHOCYTES # (AUTO) 0.2 K/uL (2.5-16.5); LYMPHOCYTES % (AUTO) 2.7 % (20.5-51.1); MEAN CORPUSCULAR HEMOGLOBIN 29 pg (27-31); MEAN CORPUSCULAR HGB CONC 33 g/dL (33-37); MEAN CORPUSCULAR VOLUME 88.5 fL (80-94); MONOCYTES # (AUTO) 0.2 K/uL (0.8-1.0); MONOCYTES % (AUTO) 2.2 % (1.7-9.3); NEUTROPHILS # (AUTO) 7.6 K/uL (1.8-7.7); NEUTROPHILS % (AUTO) 94.8 % (42.2-75.2); PLATELET COUNT (AUTO) 247 K/uL (140-450); RED BLOOD CELL COUNT(AUTO) 3.58 MIL/uL (4.20-5.40); RED CELL DISTRIBUTION WIDTH 14.3 % (11.6-13.7)
--- NOTE | 2020-02-27 07:20 | NUR ---
RECEIVED REPORT FROM DRY CLEANING CHECKER NURSE MAIRNE FOR CONTINUITY OF CARE. PATIENT IS LYING SUPINE ON BED, RASS -3, DRY WEIGHT 90 KG. RESPIRATION EVEN AND UNLABORED ON ETT TO VENT, AC/VC FIO2 80%, RATE 24, PEEP 12, SPO2 AT 96% AT THIS TIME, LUNGS SOUND DIMINISHED ON AUSCULTATION. PUPILS 3 MM, SLUGGISH, DOES NOT TRACK, BOTH EYES CLOSES, NO CONTACT. FLACC 0. NO SIGNS OF ACUTE DISTRESS NOTED. IV ON LEROY PICC LINE, RUNNING PROPOFOL AT 45 MCG/KG/MIN, VERSED AT 1 MG/HR, AND FENTANYL 1.5 MCG/KG/HR, AND IVF NS AT 60 ML/HR. OGT IN PLACE, RUNNING JEVITY 1.2 AT 45 ML/HR AND FWF AT 105 ML/Q6H. SKIN WARM TO TOUCH, SACRAL BUTT LINE SKIN TEAR PER REPORT. PATIENT IS INCONTINENT, CARMEN IN PLACE, DRAINING WITH GRAVITY, YELLOW URINE IN BAG NOTED. SAFETY MEASURES IN PLACE. FALL RISK PROTOCOL, ASPIRATION PROTOCOL, AND ENHANCED DROPLET PROTOCOL IN PLACE, BED IN LOW POSITION, AND BED LOCKED.
[2020-02-27] MEDS: PANTOPRAZOLE 40 MG INJ VIAL IVP SCH (09:21)
[2020-02-27] MEDS: MAGNESIUM OXIDE 400 MG TAB PO SCH (09:21)
[2020-02-27] MEDS: ENOXAPARIN 100 MG/ML SYR SUBQ SCH ×2 (09:30→21:00)
--- NOTE | 2020-02-27 09:50 | NUR ---
CHECKED OGT AND RECEIVED 70 ML WHITE RESIDUAL, FLUSHED. FEEDING CONTINUE AT 45 ML/HR. ADMINISTERED SCHEDULED MEDS PER MD ORDER, FLUSHED BEFORE AND AFTER MEDS. PROVIDE HYGIENE CARE, ORAL CARE, SUCTIONING, CARMEN CARE, AND WITH ASSIST, REPOSITIONED PATIENT, AND OFFLOADED PRESSURE WITH PILLOWS, PATIENT TOLERATED FAIR, FLACC 0, RASS -3, NO EYE CONTACT. SAFETY MEASURES IN PLACE. HOB ELEVATED 35 DEGREE, BED IN LOW POSITION, AND BED LOCKED.
--- NOTE | 2020-02-27 10:28 | NUR ---
DR HOLLAND IS ROUNDING ON PATIENT.
[2020-02-27] MEDS: fentaNYL citrate - 50mL vial 2.5 MG in NACL 0.9% 200 ML IV PRN (10:42)
--- NOTE | 2020-02-27 11:53 | NUR ---
PEEP TITRATED TO 75yaO0H BY REQUEST OF , NURSE MADE AWARE. WILL CONTINUE TO MONITOR.
--- NOTE | 2020-02-27 11:59 | NUR ---
DR KIDD IS ROUNDING ON PATIENT, ORDERED TO LOWER PEEP TO 10, NOTIFIED RT DANAY. RECEIVED ORDER FOR MIRALAX BID, REPEATED AND CONFIRMED ORDER WITH MD.
--- NOTE | 2020-02-27 12:43 | NUR ---
PROVIDED ORAL CARE AND SUCTIONING, CHECKED OGT RESIDUAL AND RECEIVED 60 ML WHITE RESIDUAL, WITH ASSIST, REPOSITIONED PATIENT, USED PILLOWS TO UPLOAD PRESSURE, PATIENT TOLERATED FAIR. SAFETY MEASURES IN PLACE.
[2020-02-27] MEDS ORDERED: DEXTROSE 50% 50 ML SYR IVP PRN (12:55)
[2020-02-27] MEDS: Z-GUARD PASTE TP SCH (13:58)
--- NOTE | 2020-02-27 13:58 | NUR ---
WITH ASSIST, WOUND PICTURE TAKEN, WOUND CARE PROVIDED, Z-GUARD APPLIED, AND SECURED WITH HEART-SHAPE OPTIFOAM. PATIENT TOLERATED FAIR, SAFETY MEASURES IN PLACE.
--- NOTE | 2020-02-27 15:20 | NUR ---
RECEIVED A CALL FROM NHAN, UPDATED HIM WITH PATIENT'S CONDITION, NHAN WAS AWARE.
--- NOTE | 2020-02-27 16:00 | NUR ---
PT PLACED INTO PRONE POSITION, TOLERATING WELL. ETT IS SECURE WITH A PATENT AIRWAY. WILL CONTINUE TO MONITOR.
--- NOTE | 2020-02-27 16:05 | NUR ---
WITH ASSIST FROM RT, PRONE PATIENT, PILLOWS AND OPTIFOAMS USED TO OFFLOADED PRESSURE. TUBE FEEING HELD AT THIS TIME. PATIENT POSITIONED COMFORTABLY IN [place]SE [place]. SAFETY MEASURES IN PLACE.
[2020-02-27] MEDS: BLOOD GLUCOSE MONITORING 1 DEV DEV FS SCH ×2 (16:45→20:49)
--- NOTE | 2020-02-27 16:45 | NUR ---
BLOOD GLUCOSE CHECKED, RECEIVED 145, NO COVERAGE NEEDED. NHAN IS SEEING PATIENT AT WINDOW-SIDE.
--- NOTE | 2020-02-27 19:30 | NUR ---
ENDORSED TO ENVIRONMENTAL STUDIES PROFESSOR NURSE FOR CONTINUITY OF CARE.
--- NOTE | 2020-02-27 19:38 | NUR ---
RECEIVED PATIENT FROM DAY SHIFT ON AC 24,450, PEEP 12,70% FIO2. VENT PLUGGED INTO RED OUTLET. BMV AT BEDSIDE. ETT SECURED. ALARMS SET. PATIENT IS IN PRONE POSITION. SX MINIMAL AMOUNT OF THICK CREAMY YELLOW SECRETION. AIRWAY PATENT. WILL CONT TO MONITOR.
[2020-02-27] MEDS: POLYETHYLENE GLYCOL 17 GM/PKT PO SCH (20:49)
[2020-02-28] VITALS (60 sets, daily range): BP systolic 86–142; BP diastolic 45–70
[2020-02-28] MEDS: PROPOFOL 1000 MG/100 ML PREMIX 100 ML IV PRN ×7 (00:05→20:30)
[2020-02-28] MEDS: Z-GUARD PASTE TP SCH ×2 (00:51→12:30)
[2020-02-28] MEDS: NACL 0.9% 1,000 ML IV SCH ×3 (00:51→20:45)
--- NOTE | 2020-02-28 04:02 | NUR ---
PATIENT PLACED IN SUPINE WITH NO DISTRESS, AIRWAY PATENT. WILL CONT TO MONITOR
[2020-02-28 06:23] LABS: BASOPHILS % (AUTO) 0.2 % (0.0-2.0); EOSINOPHILS % (AUTO) 0.2 % (0.0-4.0); HEMATOCRIT 33.5 % (36-48); HEMOGLOBIN 10.9 g/dL (12.0-16.0); LYMPHOCYTES # (AUTO) 0.3 K/uL (2.5-16.5); LYMPHOCYTES % (AUTO) 5.3 % (20.5-51.1); MEAN CORPUSCULAR HEMOGLOBIN 29 pg (27-31); MEAN CORPUSCULAR HGB CONC 33 g/dL (33-37); MEAN CORPUSCULAR VOLUME 88.5 fL (80-94); MONOCYTES # (AUTO) 0.1 K/uL (0.8-1.0); MONOCYTES % (AUTO) 2.1 % (1.7-9.3); NEUTROPHILS # (AUTO) 5.1 K/uL (1.8-7.7); NEUTROPHILS % (AUTO) 92.2 % (42.2-75.2); PLATELET COUNT (AUTO) 204 K/uL (140-450); RED BLOOD CELL COUNT(AUTO) 3.78 MIL/uL (4.20-5.40); RED CELL DISTRIBUTION WIDTH 14.2 % (11.6-13.7); WHITE BLOOD COUNT (AUTO) 5.6 K/uL (4.8-10.8)
[2020-02-28] MEDS: BLOOD GLUCOSE MONITORING 1 DEV DEV FS SCH ×4 (06:50→20:45)
[2020-02-28 07:06] LABS: ALBUMIN 1.6 g/dL (3.4-5.0); ANION GAP 3.9 (8-16); CREATININE 0.5 mg/dL (0.6-1.3); PHOSPHORUS 2.8 mg/dL (2.5-4.9); POTASSIUM 4.9 mmol/L (3.5-5.1); TOTAL BILIRUBIN 0.2 mg/dL (0.0-1.0)
--- NOTE | 2020-02-28 07:19 | NUR ---
RECEIVED INTUBATED PT WITH A 7.5 ETT SECURED @22 TEETH/GUM. SETTINGS AC 24, VT450, PEEP10 AND FIO2 INCREASED TO 100%, PT SLIGHTLY MOVING AROUND IN BED, AGITATED. NURSE AWARE OF PT STATUS. SPO2 84% FIO2 INCREASED TO 100%. VENT IS PLUGGED INTO A RED OUTLET WITH ALARMS ON AND FUNCTIONING. WILL CONTINUE TO MONITOR.
--- NOTE | 2020-02-28 08:09 | NUR ---
PT VENT SWITCHED OUT DUE TO ALARM STATING O2 OUT OF RANGE. PT PLACED ON PB 840 AND PT TOLERATING WELL AT THIS TIME. NURSE MADE AWARE.
--- NOTE | 2020-02-28 08:57 | NUR ---
DR KIDD IS ROUNDING ON PATIENT.
[2020-02-28] MEDS ORDERED: BUMETANIDE 1 MG/4 ML VIAL IV SCH (09:00)
[2020-02-28] MEDS: fentaNYL citrate - 50mL vial 2.5 MG in NACL 0.9% 200 ML IV PRN (09:09)
[2020-02-28] MEDS: PANTOPRAZOLE 40 MG INJ VIAL IVP SCH (09:13)
[2020-02-28] MEDS: MAGNESIUM OXIDE 400 MG TAB PO SCH (09:14)
[2020-02-28] MEDS: ENOXAPARIN 100 MG/ML SYR SUBQ SCH ×2 (09:14→20:45)
[2020-02-28] MEDS: POLYETHYLENE GLYCOL 17 GM/PKT PO SCH ×2 (09:14→20:45)
--- NOTE | 2020-02-28 09:18 | NUR ---
FIO2 TITRATED TO 85% AND NURSE MADE AWARE OF CHANGE. WILL CONTINUE TO MONITOR.
[2020-02-28] MEDS: methylPREDNISolone SS 40 MG/ML VIAL IVP SCH ×2 (09:21→20:45)
--- NOTE | 2020-02-28 09:37 | NUR ---
CHECKED OGT AND RECEIVED 50 ML WHITE RESIDUAL, FLUSHED. FEEDING RESUME AT 45 ML/HR. ADMINISTERED SCHEDULED MEDS PER MD ORDER, FLUSHED BEFORE AND AFTER MEDS. PROVIDE HYGIENE CARE, SUCTIONING, ORAL CARE, CARMEN CARE, AND WITH ASSIST, REPOSITIONED PATIENT, AND OFFLOADED PRESSURE WITH PILLOWS, PATIENT TOLERATED FAIR, FLACC 0, RASS -3, NO EYE CONTACT. SAFETY MEASURES IN PLACE. HOB ELEVATED 35 DEGREE, BED IN LOW POSITION, AND BED LOCKED.
--- NOTE | 2020-02-28 11:40 | NUR ---
GLUCOSE BLOOD CHECKED 143, NO COVERAGE NEEDED. WITH ASSIST,REPOSITIONED PATIENT, OFFLOADED PRESSURE WITH PILLOWS, PROVIDED ORAL CARE AND SUCTIONING, PATIENT TOLERATED FAIR, FLACC 0, RESPIRATION EVEN AND UNLABORED, SPO2 AT 97% AT THIS TIME. SAFETY MEASURES IN PLACE.
--- NOTE | 2020-02-28 12:31 | NUR ---
WITH ASSIST, PROVIDED WOUND CARE, PATIENT TOLERATED FAIR. REPOSITIONED PATIENT, OFFLOADED PRESSURE WITH PILLOWS. SAFETY MEASURES IN PLACE. HOB ELEVATED 35 DEGREE, BED IN LOW POSITION, AND BED LOCKED.
--- NOTE | 2020-02-28 14:24 | NUR ---
RECEIVED A CALL FROM NHAN AND UPDATE HIM WITH PATIENT'S CONDITION, AND NHAN WAS AWARE. NHAN IS SEEING PATIENT BY WINDOW-SIDE FROM OUTSIDE.
--- NOTE | 2020-02-28 15:40 | NUR ---
PT PLACED INTO PRONE POSITION. ETT IS SECURE WITH A PATENT AIRWAY. VENT ALARMS REMAIN ON AND FUNCTIONING. PT NOT IN ANY DISTRESS AT THIS TIME . WILL CONTINUE TO MONITOR.
--- NOTE | 2020-02-28 15:47 | NUR ---
02/28/20 RD FOLLOW UP COMPLETED PLEASE REFER TO NUTRITION PROGRESS NOTE UNDER CARE ACTIVITY FOR ESTIMATED NUTRITION NEEDS. RD RECOMMENDATIONS: 1. RECOMMEND CONTINUE JEVITY 1.2 @ 45 ML/HR WITH PROSOURCE QD. -THIS WILL PROVIDE 1356 KCAL AND 75 GM OF PROTEIN, MEETING 100% OF ESTIMATED NUTRIENT NEEDS 2. RECOMMEND CONTINUE FLUSH OF [address] TO FOLLOW-UP 2-3 DAYS, HIGH RISK BRIELLE PERALTA MBA, RD
[2020-02-28] MEDS ORDERED: fentaNYL citrate 1 MG in NACL 0.9% 80 ML IV PRN (16:55)
--- NOTE | 2020-02-28 19:30 | NUR ---
ENDORSED PATIENT TO BELLHOP NURSE FOR CONTINUITY OF CARE.
--- NOTE | 2020-02-28 19:35 | NUR ---
RECEIVED REPORT FROM DAY SHIFT RN; PT PRONE SEDATED RASS-3 ON PROPOFOL, FENTANYL AND VERSED DRIP. PT AROUSABLE TO PAIN. ETT TO VENT ON 80% FIO2 PEEP10. THICK WHITE CREAMY SECRETION NOTED. PT IN REVERSE [place] POSITION. SR ON MONITOR; 60-70S, +1 EDEMA NOTED. ABD SOFT NON DISTENDED; ROUND, OGT IN PLACE; CLAMPED @ THIS TIME. CRAMEN CATH IN PLACE, DARK NEELA URINE NOTED, SKIN NON INTACT; SKIN TEAR TO INTERGLUTEAL CLEFT NOTED. R UPPER ARM PICC NOTED, PATENT INTACT. BED LOCKED IN LOWEST POSITION. WILL CONTINUE TO OBSERVE.
[2020-02-29] VITALS (62 sets, daily range): BP systolic 92–162; BP diastolic 42–75
[2020-02-29] MEDS: PROPOFOL 1000 MG/100 ML PREMIX 100 ML IV PRN ×6 (00:35→19:41)
[2020-02-29] MEDS: Z-GUARD PASTE TP SCH ×2 (01:00→13:20)
--- NOTE | 2020-02-29 04:30 | NUR ---
PT SUPINATED WITH RN AND RT PRESENT; PT TOLERATED WELL. CHG BATH GIVEN. LINEN CHANGED. PT TURNED AND REPOSITIONED. OFFLOADED PRESSURE AREAS. WILL CONTINUE TO OBSERVE
[2020-02-29] MEDS: MIDAZOLAM MDV 100 MG in NACL 0.9% 80 ML IV PRN (04:57)
[2020-02-29] MEDS: BLOOD GLUCOSE MONITORING 1 DEV DEV FS SCH ×4 (06:33→20:53)
--- NOTE | 2020-02-29 06:47 | NUR ---
DR VIDAL @ BEDSIDE; UPDATED REGARDING PT CONDITION. WILL CONTINUE TO OBSERVE.
[2020-02-29 06:51] LABS: BASOPHILS % (AUTO) 0.2 % (0.0-2.0); EOSINOPHILS # (AUTO) 0.2 K/uL (0-0.4); EOSINOPHILS % (AUTO) 2.2 % (0.0-4.0); HEMOGLOBIN 11.3 g/dL (12.0-16.0); LYMPHOCYTES # (AUTO) 0.6 K/uL (2.5-16.5); MEAN CORPUSCULAR HEMOGLOBIN 29 pg (27-31); MEAN CORPUSCULAR HGB CONC 33 g/dL (33-37); MEAN CORPUSCULAR VOLUME 87.2 fL (80-94); MONOCYTES # (AUTO) 0.2 K/uL (0.8-1.0); MONOCYTES % (AUTO) 2.2 % (1.7-9.3); NEUTROPHILS # (AUTO) 6.1 K/uL (1.8-7.7); NEUTROPHILS % (AUTO) 87.4 % (42.2-75.2); PLATELET COUNT (AUTO) 220 K/uL (140-450); RED CELL DISTRIBUTION WIDTH 14.1 % (11.6-13.7)
--- NOTE | 2020-02-29 07:22 | NUR ---
REPORT GIVEN TO DAY SHIFT FOR CONTINUITY OF CARE
[2020-02-29] MEDS: PANTOPRAZOLE 40 MG INJ VIAL IVP SCH (07:57)
[2020-02-29] MEDS: methylPREDNISolone SS 40 MG/ML VIAL IVP SCH ×2 (07:57→20:38)
[2020-02-29] MEDS: POLYETHYLENE GLYCOL 17 GM/PKT PO SCH ×2 (07:58→20:38)
[2020-02-29] MEDS: MAGNESIUM OXIDE 400 MG TAB PO SCH (07:59)
--- NOTE | 2020-02-29 08:15 | NUR ---
DECREASED SATURATION TO 84% ON FIO2 OF 80% PEEP [id number] INCREASED FIO2 TO 100% REVIEWED SYSTOLIC PRESSURE TO [id number] TO MAINTAIN SATURATION GREATER THAN 88% CERTIFIED VETERINARY TECHNICIAN TO MONITOR AND TITRATE Addendum: 02/29/20 at 1129 by Tim Mendieta RT JACKELYN NOTIFIED AT [id number]
[2020-02-29 08:43] LABS: ANION GAP 11.6 (8-16); CARBON DIOXIDE 28.2 mmol/L (21-32); CREATININE 0.5 mg/dL (0.6-1.3); POTASSIUM 3.8 mmol/L (3.5-5.1); TOTAL BILIRUBIN 0.4 mg/dL (0.0-1.0)
[2020-02-29 08:44] LABS: ALBUMIN 1.7 g/dL (3.4-5.0); MAGNESIUM 2.1 mg/dL (1.8-2.4); PHOSPHORUS 2.9 mg/dL (2.5-4.9)
[2020-02-29] MEDS: ENOXAPARIN 100 MG/ML SYR SUBQ SCH ×2 (08:53→20:41)
[2020-02-29] MEDS: NACL 0.9% 1,000 ML IV SCH ×2 (08:54→10:37)
--- NOTE | 2020-02-29 10:17 | NUR ---
RECEIVED ON A PB 840 VENTILATOR PLUGGED INTO RED OUTLET TOLERATING WELL WITHOUT ADVERSE REACTIONS NOTED TO AN ENDOTRACHEAL TUBE #7.2 SECURED AT 22cm TEETH/GUM LINE WITH ANCHOR FAST CUFF PRESSURE CHECKED S NOTED AMBU BAG AT BEDSIDE LOC SEDATED STABLE GOOD CHEST RISE ENDOTRACHEAL SUCTION FOR SMALL THIN YELLOW SECRETIONS AIRWAY PATENT DECREASED PEEP TO [id number] TOMER/RN NOTIFIED
--- NOTE | 2020-02-29 14:25 | NUR ---
PT PRONED AT THIS TIME WITH RT AT BEDSIDE FOR AIRWAY MANAGEMENT, NO ADVERSE EVENS, PT ARTEMIO WELL. TEMP 101.8, WILL CONTINUE COOLINGMEASURES
[2020-02-29] MEDS: fentaNYL citrate - 50mL vial 2.5 MG in NACL 0.9% 200 ML IV PRN (14:43)
--- NOTE | 2020-02-29 15:35 | NUR ---
DR REY MADE AWARE OF BLOOD STREAKS IN CARMEN CATH, NO JOHN BLOOD NOTED, OK TO CONTINUE LOVENOX PER DR REY.
--- NOTE | 2020-02-29 19:30 | NUR ---
RECEIVED REPORT FROM DAY SHIFT RN; PT PRONE SEDATED RASS-3 ON PROPOFOL, FENTANYL AND VERSED DRIP. PT AROUSABLE TO PAIN. ETT TO VENT ON 100% FIO2 PEEP10. THICK WHITE CREAMY SECRETION NOTED. PT IN REVERSE [place] POSITION PRONE. SR ON MONITOR; 70-80S, +1 EDEMA NOTED. ABD SOFT NON DISTENDED; ROUND, OGT IN PLACE; CLAMPED @ THIS TIME. CARMEN CATH IN PLACE, DARK NEELA URINE NOTED, SKIN NON INTACT; SKIN TEAR TO INTERGLUTEAL CLEFT NOTED. R UPPER ARM PICC NOTED, PATENT INTACT. BED LOCKED IN LOWEST POSITION. WILL CONTINUE TO OBSERVE.
--- NOTE | 2020-02-29 20:15 | NUR ---
RECEIVED PT FROM AM SHIFT ON SETTING AC 450, FIO2 100% R 24, FLOW 60 AND PEEP 10. PT INTUBATED WITH ETT SIZE 7.5 SECURED WITH ANCHORFAST @22CM AT TEETH. VENTILATOR IS PLUGGED INTO THE RED OUTLET. BVM AT BEDSIDE, ALARMS SET AUDIBLE. PT IS IN NO RESPIRATORY DISTRESS, AIRWAY PATENT. WILL CONTINUE TO MONITOR .
[2020-03-01] VITALS (52 sets, daily range): BP systolic 94–146; BP diastolic 35–78
[2020-03-01] MEDS: Z-GUARD PASTE TP SCH ×2 (01:33→13:00)
[2020-03-01] MEDS: NACL 0.9% 1,000 ML IV SCH ×3 (03:32→23:32)
[2020-03-01 05:46] LABS: BASOPHILS % (AUTO) 0.1 % (0.0-2.0); EOSINOPHILS # (AUTO) 0.2 K/uL (0-0.4); EOSINOPHILS % (AUTO) 2.5 % (0.0-4.0); HEMATOCRIT 33.7 % (36-48); HEMOGLOBIN 10.9 g/dL (12.0-16.0); LYMPHOCYTES # (AUTO) 0.3 K/uL (2.5-16.5); MEAN CORPUSCULAR HEMOGLOBIN 29 pg (27-31); MEAN CORPUSCULAR HGB CONC 33 g/dL (33-37); MEAN CORPUSCULAR VOLUME 88.5 fL (80-94); MONOCYTES # (AUTO) 0.2 K/uL (0.8-1.0); NEUTROPHILS # (AUTO) 8.2 K/uL (1.8-7.7); NEUTROPHILS % (AUTO) 92.4 % (42.2-75.2); PLATELET COUNT (AUTO) 207 K/uL (140-450); RED CELL DISTRIBUTION WIDTH 14.3 % (11.6-13.7); WHITE BLOOD COUNT (AUTO) 8.9 K/uL (4.8-10.8)
[2020-03-01 06:21] LABS: ALBUMIN 1.5 g/dL (3.4-5.0); ANION GAP 8.6 (8-16); CARBON DIOXIDE 30.6 mmol/L (21-32); CREATININE 0.5 mg/dL (0.6-1.3); PHOSPHORUS 3.8 mg/dL (2.5-4.9); POTASSIUM 4.2 mmol/L (3.5-5.1); TOTAL BILIRUBIN 0.9 mg/dL (0.0-1.0)
--- NOTE | 2020-03-01 07:30 | NUR ---
RECEIVED REPORT FROM LAND ECONOMIST NURSE MARINE FOR CONTINUITY OF CARE. PATIENT IS LYING SUPINE ON BED, RASS -3, DRY WEIGHT 90 KG. RESPIRATION EVEN AND UNLABORED ON ETT TO VENT, AC/PC FIO2 100%, RATE 24, PEEP 10, SPO2 AT 94% AT THIS TIME, LUNGS SOUND RHONCHI ON AUSCULTATION. PUPILS 3 MM, SLUGGISH, DOES NOT TRACK, BOTH EYES CLOSES, NO CONTACT. FLACC 0. NO SIGNS OF ACUTE DISTRESS NOTED. IV ON LEROY PICC LINE, RUNNING FENTANYL AT 2 MCG/KG/HR, VERSED AT 8MG/HR. OGT IN PLACE, RUNNING JEVITY 1.2 AT 45 ML/HR . SKIN WARM TO TOUCH, INTERGLUTEAL CLEFT SKIN TEAR NOTD, Z-GUARD AND HEART SHAPE OPTIFOAM IN PLACE. PATIENT IS INCONTINENT, CARMEN IN PLACE, DRAINING WITH GRAVITY, YELLOW URINE IN BAG NOTED. BILATERAL SOFT WRIST RESTRAINTS IN PLACE, NO SIGNS OF INJURY AND CAPILLARY REFILLED < 3 SECONDS. SAFETY MEASURES IN PLACE. FALL RISK PROTOCOL, ASPIRATION PROTOCOL, PRESSURE ULCER PRECAUTION AND ENHANCED DROPLET PROTOCOL IN PLACE, BED IN LOW POSITION, AND BED LOCKED.
[2020-03-01] MEDS: BLOOD GLUCOSE MONITORING 1 DEV DEV FS SCH ×4 (07:39→20:13)
[2020-03-01] MEDS: MIDAZOLAM MDV 100 MG in NACL 0.9% 80 ML IV PRN (08:13)
[2020-03-01] MEDS: fentaNYL citrate - 50mL vial 2.5 MG in NACL 0.9% 200 ML IV PRN (08:14)
[2020-03-01] MEDS: ENOXAPARIN 100 MG/ML SYR SUBQ SCH ×2 (09:52→20:14)
[2020-03-01] MEDS: PANTOPRAZOLE 40 MG INJ VIAL IVP SCH (09:53)
[2020-03-01] MEDS: methylPREDNISolone SS 40 MG/ML VIAL IVP SCH ×2 (09:53→20:13)
[2020-03-01] MEDS: MAGNESIUM OXIDE 400 MG TAB PO SCH (09:53)
[2020-03-01] MEDS: POLYETHYLENE GLYCOL 17 GM/PKT PO SCH ×2 (09:53→20:13)
--- NOTE | 2020-03-01 09:59 | NUR ---
CHECKED OGT AND RECEIVED 50 ML WHITE RESIDUAL, FLUSHED. JEVITY 1.2, FEEDING CONTINUE AT 45 ML/HR. ADMINISTERED SCHEDULED MEDS PER MD ORDER, FLUSHED BEFORE AND AFTER MEDS. PROVIDE HYGIENE CARE, ORAL CARE, SUCTIONING, CARMEN CARE, AND WITH ASSIST, REPOSITIONED PATIENT, AND OFFLOADED PRESSURE WITH PILLOWS, PATIENT TOLERATED FAIR, FLACC 0, RASS -3, NO EYE CONTACT. SAFETY MEASURES IN PLACE. HOB ELEVATED 35 DEGREE, BED IN LOW POSITION, AND BED LOCKED.
--- NOTE | 2020-03-01 11:15 | NUR ---
WITH ASSIST FROM RT, PRONE PATIENT, USED PILLOWS TO OFFLOADED PRESSURE ABD OPTIFOAM FOR KNEE PROTECTION. POSITIONED PATIENT COMFORTABLY IN RE[place]SE [place], SAFETY MEASURES IN PLACE.
--- NOTE | 2020-03-01 11:15 | NUR ---
PT PRONE ON VENT SAME SETTINGS
--- NOTE | 2020-03-01 11:35 | NUR ---
BLOOD GLUCOSE CHECKED AND RECEIVED 104, NO COVERAGE NEEDED. RESPIRATION EVEN AND UNLABORED ON AC/VC FIO2 AT 100%, PEEP 10, RATE 24, SPO2 AT 91% AT THIS TIME, FLACC 0, NO SIGNS OF ACUTE DISTRESS NOTED. SAFETY MEASURES IN PLACE.
--- NOTE | 2020-03-01 13:00 | NUR ---
Z-GUARD APPLIED ON INTERGLUTEAL CLEFT, HEART SHAPED OPTIFOAM INTACT. PATIENT TOLERATED FAIR.
--- NOTE | 2020-03-01 16:50 | NUR ---
BLOOD GLUCOSE CHECKED AND RECEIVED 105, NO COVERAGE NEEDED. REPOSITIONED PATIENT'S ARM, PATIENT TOLERATED FAIR. RESPIRATION EVEN AND UNLABORED ON AC/VC FIO2 100%, SPO2 AT 95% AT THIS TIME. SAFETY MEASURES IN PLACE.
--- NOTE | 2020-03-01 17:26 | NUR ---
FAMILY IS SEEING PATIENT BY WINDOW SIDE FROM [employer]ARKING [employer].
--- NOTE | 2020-03-01 19:35 | NUR ---
RECEIVED REPORT FROM DAY SHIFT RN; PT PRONE SEDATED RASS-3 ON FENTANYL AND VERSED DRIP. PT AROUSABLE TO PAIN. ETT TO VENT ON 100% FIO2 PEEP10. THICK WHITE CREAMY SECRETION NOTED. PT IN REVERSE [place] POSITION PRONE. SR ON MONITOR; 70-80S, +2 EDEMA NOTED. ABD SOFT NON DISTENDED; ROUND, OGT IN PLACE; CLAMPED @ THIS TIME. CARMEN CATH IN PLACE, DARK NEELA URINE NOTED, SKIN NON INTACT; SKIN TEAR TO INTERGLUTEAL CLEFT NOTED. R UPPER ARM PICC NOTED, PATENT INTACT. BED LOCKED IN LOWEST POSITION. WILL CONTINUE TO OBSERVE.
--- NOTE | 2020-03-01 20:10 | NUR ---
RECEIVED PT ON SETTING AC 450, R 24, FIO2 100%,FLOW 60, PEEP 10. VENTILATOR PLUGGED TO THE RED OUTLET . AMBUG BAG @ BEDSIDE. PT INTUBATED WITH ETT 7.5 SECURE WITH ANCHOR FAST @ 23CM TEETH. ALARM SET AUDIBLE, PT IN PRONE POSITION . WILL CONTINUE TO MONITOR.
--- NOTE | 2020-03-01 21:50 | NUR ---
PT SWITCHED TO PRESSURE CONTROL ON VENTILATOR; D/T TO ELEVATED PEAK PRESSURE. 2230: PT SPO2 [phone]% TOLERATING NEW VENT SETTINGS.
--- NOTE | 2020-03-01 21:50 | NUR ---
PER ASSESSMENT PT PEAK PRESSURE INCREASE TO 50 AND [address]T 37.CHANGE PATIENT VENT SETTING TO PC SETTING PIP 20, I TIME 0.80, R 24 FIO2 100%, PEEP 10. PT RECEIVING ADEQUATE VOLUME (338 TO 599). PT TOLERATING WELL. PAGED DR KIDD TO CONFIRM CHANGES MADE. PENDING DR DONOHUE.
[2020-03-02] VITALS (58 sets, daily range): BP systolic 83–142; BP diastolic 43–96
--- NOTE | 2020-03-02 00:20 | NUR ---
REPORT THE CHANGES MADE ON VENT AND ABG CRITICAL RESULT TO DR VIDAL. DR REQUESTED TO INCREASE RATE TO 30.
[2020-03-02] MEDS: Z-GUARD PASTE TP SCH ×2 (01:17→13:47)
[2020-03-02] MEDS: MIDAZOLAM MDV 100 MG in NACL 0.9% 80 ML IV PRN ×2 (03:28→12:16)
[2020-03-02 06:48] LABS: BASOPHILS # (AUTO) 0.1 K/uL (0.00-0.22); BASOPHILS % (AUTO) 1.4 % (0.0-2.0); HEMATOCRIT 32.1 % (36-48); HEMOGLOBIN 10.7 g/dL (12.0-16.0); LYMPHOCYTES # (AUTO) 0.2 K/uL (2.5-16.5); MEAN CORPUSCULAR HEMOGLOBIN 30 pg (27-31); MEAN CORPUSCULAR HGB CONC 33 g/dL (33-37); MONOCYTES # (AUTO) 0.2 K/uL (0.8-1.0); MONOCYTES % (AUTO) 2.4 % (1.7-9.3); NEUTROPHILS # (AUTO) 6.3 K/uL (1.8-7.7); NEUTROPHILS % (AUTO) 93.2 % (42.2-75.2); PLATELET COUNT (AUTO) 187 K/uL (140-450); RED BLOOD CELL COUNT(AUTO) 3.61 MIL/uL (4.20-5.40); RED CELL DISTRIBUTION WIDTH 14.3 % (11.6-13.7); WHITE BLOOD COUNT (AUTO) 6.7 K/uL (4.8-10.8)
--- NOTE | 2020-03-02 07:03 | NUR ---
REC'D PT ON PB840 VENT SETTINGS PC 20 RR 30 ITIME 0.80 PEEP 10 FIO2 100% ALARMS ON AND AUDIBLE, VENT IS PLUGGED INTO RED OUTLET, BVM AT [facility] SXN PT SMALL AMT OF YELLOW SECRETIONS, B\S ARE COARSE BILATERALLY, PT IS ORALLY INTUBATED WITH 7.5 ETT SECURED AT 23CM PT IS NOT AWAKE AT THIS TIME
--- NOTE | 2020-03-02 07:20 | NUR ---
RECEIVED REPORT FROM VP OF MARKETING NURSE MARINE FOR CONTINUITY OF CARE. PATIENT IS LYING SUPINE ON BED, RASS -3, DRY WEIGHT 90 KG. RESPIRATION EVEN AND UNLABORED ON ETT TO VENT, AC/PC FIO2 100%, RATE 24, PEEP 10, SPO2 AT 100% AT THIS TIME. PUPILS 3 MM, SLUGGISH, DOES NOT TRACK, BOTH EYES CLOSES, NO CONTACT. FLACC 0. NO SIGNS OF ACUTE DISTRESS NOTED. IV ON LEROY PICC LINE, RUNNING FENTANYL AT 2 MCG/KG/HR, VERSED AT 8MG/HR. OGT IN PLACE, RUNNING JEVITY 1.2 AT 45 ML/HR . SKIN WARM TO TOUCH, INTERGLUTEAL CLEFT SKIN TEAR NOTED, Z-GUARD AND HEART SHAPE OPTIFOAM IN PLACE. PATIENT IS INCONTINENT, CARMEN IN PLACE, DRAINING WITH GRAVITY, YELLOW URINE IN BAG NOTED. BILATERAL SOFT WRIST RESTRAINTS IN PLACE, NO SIGNS OF INJURY AND CAPILLARY REFILLED < 3 SECONDS. SAFETY MEASURES IN PLACE. FALL RISK PROTOCOL, ASPIRATION PROTOCOL, PRESSURE ULCER PRECAUTION AND ENHANCED DROPLET PROTOCOL IN PLACE, BED IN LOW POSITION, AND BED LOCKED.
[2020-03-02] MEDS: BLOOD GLUCOSE MONITORING 1 DEV DEV FS SCH ×4 (07:36→21:20)
[2020-03-02 07:41] LABS: ALBUMIN 1.5 g/dL (3.4-5.0); ANION GAP 8.5 (8-16); CARBON DIOXIDE 29.6 mmol/L (21-32); CREATININE 0.4 mg/dL (0.6-1.3); MAGNESIUM 2.5 mg/dL (1.8-2.4); PHOSPHORUS 4.1 mg/dL (2.5-4.9); POTASSIUM 5.1 mmol/L (3.5-5.1); TOTAL BILIRUBIN 0.3 mg/dL (0.0-1.0)
[2020-03-02] MEDS: MAGNESIUM OXIDE 400 MG TAB PO SCH (09:19)
[2020-03-02] MEDS: PANTOPRAZOLE 40 MG INJ VIAL IVP SCH (09:19)
[2020-03-02] MEDS: POLYETHYLENE GLYCOL 17 GM/PKT PO SCH ×2 (09:19→21:20)
[2020-03-02] MEDS: methylPREDNISolone SS 40 MG/ML VIAL IVP SCH ×2 (09:19→21:20)
[2020-03-02] MEDS: ENOXAPARIN 100 MG/ML SYR SUBQ SCH ×2 (09:22→21:20)
[2020-03-02] MEDS: NACL 0.9% 1,000 ML IV SCH ×2 (09:32→19:32)
--- NOTE | 2020-03-02 09:38 | NUR ---
CHECKED OGT AND RECEIVED 30 ML WHITE RESIDUAL, FLUSHED. JEVITY 1.2, FEEDING CONTINUE AT 45 ML/HR. ADMINISTERED SCHEDULED MEDS PER MD ORDER, FLUSHED BEFORE AND AFTER MEDS. PROVIDE HYGIENE CARE, ORAL CARE, SUCTIONING, CARMEN CARE, AND WITH ASSIST, REPOSITIONED PATIENT, AND OFFLOADED PRESSURE WITH PILLOWS, PATIENT TOLERATED FAIR, FLACC 0, RASS -3, NO EYE CONTACT, SWOLLEN ON FACE, BUE/BLE NOTED, PITTING 2+ ON BUE/BLE. SAFETY MEASURES IN PLACE. HOB ELEVATED 35 DEGREE, BED IN LOW POSITION, AND BED LOCKED.
--- NOTE | 2020-03-02 11:17 | NUR ---
BLOOD GLUCOSE CHECKED 106, NO COVERAGE NEEDED. PROVIDED ORAL CARE AND SUCTIONING, PATIENT TOLERATED FAIR.
--- NOTE | 2020-03-02 12:00 | NUR ---
PT PRONED RN AT BEDSIDE ETT SECURED
--- NOTE | 2020-03-02 12:05 | NUR ---
WITH ASSIST FROM RT, PRONE PATIENT, USED PILLOWS TO OFFLOADED PRESSURE FROM CHES, OPTIFOAM USED ON KNEES, POSITIONED PATIENT INTO REVERSE [place] POSITION, SAFETY MEASURES IN PLACE.
[2020-03-02] MEDS: fentaNYL citrate - 50mL vial 2.5 MG in NACL 0.9% 200 ML IV PRN (12:17)
--- NOTE | 2020-03-02 13:47 | NUR ---
APPLIED Z-GUARD ON SACRAL AND SECURED WITH HEART SHAPED OPTIFOAM.
--- NOTE | 2020-03-02 14:51 | NUR ---
03/02/20 RD FOLLOW UP COMPLETED PLEASE REFER TO NUTRITION ASSESSMENT UNDER CARE ACTIVITY FOR ESTIMATED NUTRITIONAL NEEDS. 1. RECOMMEND JEVITY 1.2 @ 80 ML/HR X 8 HOURS WITH PROSOURCE BID -THIS WILL PROVIDE 888 KCAL AND 65 GM OF PROTEIN, MEETING 86% OF ESTIMATED KCAL NEEDS AND 90% OF PROTEIN NEEDS. 2. RECOMMEND CONTINUE FLUSH OF [address] TO FOLLOW-UP 2-3 DAYS, HIGH RISK BETZAIDA KEATING RD
--- NOTE | 2020-03-02 15:01 | NUR ---
PATIENT IS HAVING A-FIB HEART RATE RANGE FROM 138-145, PAGED DR REY.
[2020-03-02] MEDS ORDERED: DILTIAZEM 25 MG/5 ML VIAL IVP SCH (15:05)
[2020-03-02] MEDS ORDERED: DILTIAZEM 25 MG/5 ML VIAL IVP ONE (15:09)
--- NOTE | 2020-03-02 15:15 | NUR ---
AFIB RVR NOTED ON MONITOR, NOTIFIED DR REY, DR REY WAS AWARE, RECEIVED ORDER FOR CARDIZEM IVP AND CONSULTATION FOR CRUSHER SCREEN REPAIRER DR PAYNE.
--- NOTE | 2020-03-02 19:20 | NUR ---
RECEIVED PT REPORT, AT WINDOW, FOR CONITNUITY OF CARE. SEDATED TO RASS -3, PER MD ORDERS. PUPILS 3MM, PERRL. ETT TO VENT, ACPC MODE. LUNGS COARSE THROUGHOUT. +S1, S2 NOTED. AFIB ON MONITOR. BOWEL SOUNDS ACTIVE X4. ABD SOFT, NON-DISTENDED. CARMEN IN PLACE DRAINING CLEAR, YELLOW- URINE TO GRAVITY. LEROY PICC IN PLACE INFUSING VERSED, FENTANYL, AND NS INFUSING, PATENT. SKIN WARM AND DRY, SEE WOUND ASSESSMENT. PT REMAINS IN PRONE POSITIONING. SAFETY PRECAUTIONS IN PLACE WITH BED LOW AND LOCKED. WILL CONT TO MONITOR
--- NOTE | 2020-03-02 19:22 | NUR ---
ENDORSED PATIENT TO ASSOCIATE AUTOMATION ENGINEER NURSE FOR CONTINUITY OF CARE.
[2020-03-03] VITALS (27 sets, daily range): BP systolic 91–130; BP diastolic 43–81
[2020-03-03] MEDS: MIDAZOLAM MDV 100 MG in NACL 0.9% 80 ML IV PRN ×2 (01:00→15:07)
[2020-03-03] MEDS: Z-GUARD PASTE TP SCH ×2 (01:27→13:11)
[2020-03-03] MEDS: fentaNYL citrate - 50mL vial 2.5 MG in NACL 0.9% 200 ML IV PRN ×2 (01:40→18:00)
[2020-03-03] MEDS: NACL 0.9% 1,000 ML IV SCH ×2 (04:06→15:32)
[2020-03-03 05:53] LABS: BASOPHILS % (AUTO) 0.3 % (0.0-2.0); HEMATOCRIT 35.5 % (36-48); HEMOGLOBIN 11.4 g/dL (12.0-16.0); LYMPHOCYTES # (AUTO) 0.3 K/uL (2.5-16.5); LYMPHOCYTES % (AUTO) 2.8 % (20.5-51.1); MEAN CORPUSCULAR HEMOGLOBIN 29 pg (27-31); MEAN CORPUSCULAR HGB CONC 32 g/dL (33-37); MEAN CORPUSCULAR VOLUME 90.6 fL (80-94); MONOCYTES # (AUTO) 0.3 K/uL (0.8-1.0); MONOCYTES % (AUTO) 2.4 % (1.7-9.3); NEUTROPHILS # (AUTO) 10.4 K/uL (1.8-7.7); NEUTROPHILS % (AUTO) 94.5 % (42.2-75.2); PLATELET COUNT (AUTO) 255 K/uL (140-450); RED BLOOD CELL COUNT(AUTO) 3.92 MIL/uL (4.20-5.40); RED CELL DISTRIBUTION WIDTH 14.2 % (11.6-13.7)
[2020-03-03 06:19] LABS: ALBUMIN 1.7 g/dL (3.4-5.0); ANION GAP 6.1 (8-16); CARBON DIOXIDE 30.8 mmol/L (21-32); CREATININE 0.8 mg/dL (0.6-1.3); PHOSPHORUS 6.1 mg/dL (2.5-4.9); POTASSIUM 5.9 mmol/L (3.5-5.1); TOTAL BILIRUBIN 0.2 mg/dL (0.0-1.0)
[2020-03-03] MEDS: BLOOD GLUCOSE MONITORING 1 DEV DEV FS SCH ×4 (06:40→20:48)
[2020-03-03 06:44] LABS: MAGNESIUM 2.9 mg/dL (1.8-2.4)
--- NOTE | 2020-03-03 07:10 | NUR ---
RECEIVED REPORT FROM HOTEL LOBBY CONCIERGE NURSE NIKI FOR CONTINUITY OF CARE. PATIENT IS LYING SUPINE ON BED, RASS -3, DRY WEIGHT 90 KG. RESPIRATION EVEN AND UNLABORED ON ETT TO VENT, AC/PC FIO2 100%, RATE 24, PEEP 10, SPO2 AT 98% AT THIS TIME. PUPILS 3 MM, SLUGGISH, DOES NOT TRACK, BOTH EYES CLOSES, NO CONTACT. FLACC 0. NO SIGNS OF ACUTE DISTRESS NOTED. IV ON LEROY PICC LINE, RUNNING FENTANYL AT 2 MCG/KG/HR, VERSED AT 7 MG/HR. OGT IN PLACE, NOT RUNNING AT THIS TIME. SKIN WARM TO TOUCH, INTERGLUTEAL CLEFT SKIN TEAR NOTED, Z-GUARD AND HEART SHAPE OPTIFOAM IN PLACE. PATIENT IS INCONTINENT, CARMEN IN PLACE, DRAINING WITH GRAVITY, YELLOW URINE IN BAG NOTED. BILATERAL SOFT WRIST RESTRAINTS IN PLACE, NO SIGNS OF INJURY AND CAPILLARY REFILLED < 3 SECONDS. SAFETY MEASURES IN PLACE. FALL RISK PROTOCOL, ASPIRATION PROTOCOL, PRESSURE ULCER PRECAUTION AND ENHANCED DROPLET PROTOCOL IN PLACE, BED IN LOW POSITION, AND BED LOCKED.
--- NOTE | 2020-03-03 07:15 | NUR ---
ENDORSED PT TO DAYSHIFT NURSE, AT WINDOW, FOR CONTINUITY OF CARE.
[2020-03-03] MEDS: MAGNESIUM OXIDE 400 MG TAB PO SCH (09:00)
[2020-03-03] MEDS: PANTOPRAZOLE 40 MG INJ VIAL IVP SCH (09:34)
[2020-03-03] MEDS: methylPREDNISolone SS 40 MG/ML VIAL IVP SCH ×2 (09:34→20:34)
[2020-03-03] MEDS: POLYETHYLENE GLYCOL 17 GM/PKT PO SCH ×2 (09:35→20:34)
[2020-03-03] MEDS: ENOXAPARIN 100 MG/ML SYR SUBQ SCH ×2 (09:39→20:34)
--- NOTE | 2020-03-03 09:45 | NUR ---
CHECKED OGT AND RECEIVED < 5ML WHITE RESIDUAL, FLUSHED. STARTED JEVITY 1.2, FEEDING AT 45 ML/HR, NEW TUBING. ADMINISTERED SCHEDULED MEDS PER MD ORDER, HELD MAG-OXIDE DUE TO 2.9H FROM AM LAB. FLUSHED BEFORE AND AFTER MEDS. PROVIDE HYGIENE CARE, ORAL CARE, SUCTIONING, CARMEN CARE, AND WITH ASSIST, REPOSITIONED PATIENT, AND OFFLOADED PRESSURE WITH PILLOWS, PATIENT TOLERATED FAIR, FLACC 0, RASS -3, NO EYE CONTACT. SAFETY MEASURES IN PLACE. HOB ELEVATED 35 DEGREE, BED IN LOW POSITION, AND BED LOCKED.
--- NOTE | 2020-03-03 10:30 | NUR ---
DR RAMOS IS ROUNDING ON PATIENT, NOTIFIED POTASSIUM IS 5.9H AND MAG 2.9, PATIENT IS HAVING LIQUID BROWN STOOL, RECEIVED TORB ORDERS TO DC MAG-OXIDE, LOKELMA ONCE FOR HIGH K, OK TO INSERT RECTAL TUBE, AND HE WILL LOOK INTO THE IVF DUE TO EDEMA NOTED ON BUE/BLE AND FACE.
[2020-03-03] MEDS ORDERED: SODIUM ZIRCONIUM CYCLOSILICATE 10 GM POWD.PACK PO SCH (10:36)
--- NOTE | 2020-03-03 11:15 | NUR ---
PATIENT HAS A MODERATED BERONICA VARELA BM, WITH ASSIST, PROVIDED HYGIENE CARE AND CHANGED ALL DIRTY LINEN, RECTAL TUBE INSERTED.
--- NOTE | 2020-03-03 11:52 | NUR ---
LOKELMA ADMINISTERED VIA OGT, FLUSHED WITH WATER. BLOOD GLUCOSE CHECKED 109, NO COVERAGE NEEDED. PROVIDED ORAL CARE AND SUCTIONING.
--- NOTE | 2020-03-03 12:20 | NUR ---
NOTIFIED DR COELHO THAT PATIENT IS HAVING UNCONTROLLED AFIB HEART RATE GOES UP TO 155 BPM ON MONITOR, DR COELHO WAS AWARE AND ORDERED METOPROLOL 5 MG IVP PRN Q4H FOR HEART RATE < 120, REPEATED AND CONFIRMED ORDER WITH DR COELHO.
[2020-03-03] MEDS ORDERED: METOPROLOL 5 MG/5 ML VIAL IVP PRN (12:55)
--- NOTE | 2020-03-03 14:02 | NUR ---
RECEIVED A CALL FROM DAUGHTER FABIANO, UPDATED HER WITH PATIENT'S CURRENT CONDITION, FABIANO WAS AWARE.
--- NOTE | 2020-03-03 14:08 | NUR ---
152 BPM UNCONTROLLED AFIB ON MONITOR NOTED, ADMINISTERED IVP METOPROLOL 5 MG PER MD ORDER.
[2020-03-03] MEDS ORDERED: PHENYLEPHRINE 10 MG in NACL 0.9% 250 ML IV PRN (16:35)
[2020-03-03] MEDS ORDERED: PHENYLEPHRINE 40 MG in NACL 0.9% 250 ML IV PRN (17:00)
--- NOTE | 2020-03-03 19:20 | NUR ---
RECEIVED PT REPORT, AT WINDOW, FOR CONTINUITY OF CARE. SEDATED TO RASS -3, PER MD ORDERS. PUPILS 3MM, PERRL. ETT TO VENT, ACPC MODE. LUNGS COARSE THROUGHOUT. +S1, S2 NOTED. SR ON MONITOR. BOWEL SOUNDS ACTIVE X4. ABD SOFT, NON-DISTENDED. CARMEN IN PLACE DRAINING CLEAR, YELLOW- URINE TO GRAVITY. LEROY PICC IN PLACE INFUSING VERSED, FENTANYL, AND NS, PATENT. SKIN WARM AND DRY, SEE WOUND ASSESSMENT. PT CONTINUES ON TF VIA OGT. ZERO RESIDUAL NOTED. + PLACEMENT VIA AIR BOLUS. SAFETY PRECAUTIONS IN PLACE WITH BED LOW AND LOCKED. WILL CONT TO MONITOR
--- NOTE | 2020-03-03 19:23 | NUR ---
ENDORSED PATIENT TO CARDING SUPERVISOR NURSE NIKI FOR CONTINUITY OF CARE.
[2020-03-04] VITALS (32 sets, daily range): BP systolic 97–208; BP diastolic 43–106
--- NOTE | 2020-03-04 | NUR ---
REPOSITIONED PT WITH PRESSURE AREAS OFFLOADED. VAP ORAL CARE PROVIDED. PT TOLERATED WELL.
[2020-03-04] MEDS: Z-GUARD PASTE TP SCH ×2 (00:31→13:00)
[2020-03-04] MEDS: NACL 0.9% 1,000 ML IV SCH (00:32)
--- NOTE | 2020-03-04 04:00 | NUR ---
BED BATH PROVIDED.
[2020-03-04] MEDS: fentaNYL citrate - 50mL vial 2.5 MG in NACL 0.9% 200 ML IV PRN ×2 (05:35→23:19)
--- NOTE | 2020-03-04 07:20 | NUR ---
PT REPORT GIVEN TO DAYSHIFT NURSE, AT WINDOW, FOR CONTINUITY OF CARE.
--- NOTE | 2020-03-04 07:21 | NUR ---
DR VIDAL IS ROUNDING ON PATIENT.
[2020-03-04] MEDS: BLOOD GLUCOSE MONITORING 1 DEV DEV FS SCH ×4 (07:41→20:44)
[2020-03-04] MEDS: MIDAZOLAM MDV 100 MG in NACL 0.9% 80 ML IV PRN ×2 (08:15→23:19)
[2020-03-04] MEDS: POLYETHYLENE GLYCOL 17 GM/PKT PO SCH ×2 (09:48→20:23)
[2020-03-04] MEDS: methylPREDNISolone SS 40 MG/ML VIAL IVP SCH ×2 (09:48→20:21)
[2020-03-04] MEDS: PANTOPRAZOLE 40 MG INJ VIAL IVP SCH (09:48)
[2020-03-04] MEDS: ENOXAPARIN 100 MG/ML SYR SUBQ SCH ×2 (09:49→20:22)
--- NOTE | 2020-03-04 09:56 | NUR ---
ADMINISTERED AM SCHEDULED MEDS PER MD ORDER, FLUSHED BEFORE AND AFTER MEDS. PROVIDED HYGIENE CARE, ORAL CARE, SUCTIONING, CHG BATH, CARMEN AND RECTAL TUBE CARE. PATIENT TOLERATED FAIR. SAFETY MEASURES IN PLACE.
[2020-03-04 10:10] LABS: BASOPHILS % (AUTO) 0.3 % (0.0-2.0); HEMATOCRIT 31.1 % (36-48); HEMOGLOBIN 9.9 g/dL (12.0-16.0); LYMPHOCYTES # (AUTO) 0.2 K/uL (2.5-16.5); LYMPHOCYTES % (AUTO) 2.1 % (20.5-51.1); MEAN CORPUSCULAR HEMOGLOBIN 29 pg (27-31); MEAN CORPUSCULAR HGB CONC 32 g/dL (33-37); MONOCYTES # (AUTO) 0.4 K/uL (0.8-1.0); MONOCYTES % (AUTO) 4.2 % (1.7-9.3); NEUTROPHILS # (AUTO) 9.2 K/uL (1.8-7.7); NEUTROPHILS % (AUTO) 93.4 % (42.2-75.2); PLATELET COUNT (AUTO) 188 K/uL (140-450); RED BLOOD CELL COUNT(AUTO) 3.45 MIL/uL (4.20-5.40); RED CELL DISTRIBUTION WIDTH 14.4 % (11.6-13.7); WHITE BLOOD COUNT (AUTO) 9.9 K/uL (4.8-10.8)
[2020-03-04 10:58] LABS: ANION GAP 3.1 (8-16); CARBON DIOXIDE 31.4 mmol/L (21-32); CREATININE 0.8 mg/dL (0.6-1.3); POTASSIUM 4.5 mmol/L (3.5-5.1)
--- NOTE | 2020-03-04 17:25 | NUR ---
WITH ASSIST WITH RT, PRONE PATIENT, POSITIONED IN [place]SE [place] COMFORTABLY. SAFETY MEASURES IN PLACE.
--- NOTE | 2020-03-04 19:25 | NUR ---
RECEIVED PATIENT FROM DAY SHIFT ON PC 20,RR30, PEEP 10,100%. VENT PLUGGED INTO RED OUTLET. BMV AT BEDSIDE. ETT SECURED. ALARMS SET. PATIENT IS IN PRONE POSITION. ETT SHIFTED ON ANKORFAST. NO RESPIRATORY DISTRESS NOTED. WILL CONTINUE TO MONITOR FOR CHANGES IN RESPIRATORY STATUS.
--- NOTE | 2020-03-04 19:30 | NUR ---
ENDORSED PATIENT TO STUDENT LIFE ADVISOR NURSE FOR CONTINUITY OF CARE.
--- NOTE | 2020-03-04 19:30 | NUR ---
RECEIVED ENDORSEMENT FROM DAY SHIFT RN. SEDATED TO RASS -3, PER MD ORDERS. PUPILS 3MM, PERRL. ETT TO VENT, ACPC MODE. LUNGS COARSE THROUGHOUT. SR ON MONITOR. BOWEL SOUNDS ACTIVE X4, RECTAL TUBE IN PLACE. ABD SOFT, NON-DISTENDED. CARMEN IN PLACE DRAINING CLEAR, YELLOW- URINE TO GRAVITY. LEROY PICC IN PLACE INFUSING VERSED, FENTANYL, AND NS, PATENT. SKIN WARM AND DRY, SEE WOUND ASSESSMENT. PT CONTINUES ON TF VIA OGT. SAFETY PRECAUTIONS IN PLACE WITH BED LOW AND LOCKED. WILL CONT TO MONITOR
[2020-03-05] VITALS (40 sets, daily range): BP systolic 105–188; BP diastolic 62–101
[2020-03-05] MEDS: Z-GUARD PASTE TP SCH ×2 (00:27→12:17)
[2020-03-05] MEDS ORDERED: NACL 0.9% IV PRN (04:40)
[2020-03-05] MEDS ORDERED: MIDAZOLAM IV PRN (04:40)
[2020-03-05] MEDS: NACL 0.9% 1,000 ML IV SCH (04:40)
[2020-03-05] MEDS ORDERED: fentaNYL citrate 1 MG in NACL 0.9% 80 ML IV PRN (04:50)
[2020-03-05] MEDS: BLOOD GLUCOSE MONITORING 1 DEV DEV FS SCH ×4 (06:31→21:00)
[2020-03-05 07:14] LABS: BASOPHILS # (AUTO) 0.1 K/uL (0.00-0.22); BASOPHILS % (AUTO) 0.9 % (0.0-2.0); EOSINOPHILS # (AUTO) 0.1 K/uL (0-0.4); EOSINOPHILS % (AUTO) 0.9 % (0.0-4.0); HEMATOCRIT 35.1 % (36-48); HEMOGLOBIN 11.3 g/dL (12.0-16.0); LYMPHOCYTES # (AUTO) 0.2 K/uL (2.5-16.5); LYMPHOCYTES % (AUTO) 2.6 % (20.5-51.1); MEAN CORPUSCULAR HEMOGLOBIN 29 pg (27-31); MEAN CORPUSCULAR HGB CONC 32 g/dL (33-37); MEAN CORPUSCULAR VOLUME 89.7 fL (80-94); MONOCYTES # (AUTO) 0.4 K/uL (0.8-1.0); MONOCYTES % (AUTO) 4.7 % (1.7-9.3); NEUTROPHILS # (AUTO) 7.8 K/uL (1.8-7.7); NEUTROPHILS % (AUTO) 90.9 % (42.2-75.2); PLATELET COUNT (AUTO) 162 K/uL (140-450); RED BLOOD CELL COUNT(AUTO) 3.91 MIL/uL (4.20-5.40); RED CELL DISTRIBUTION WIDTH 14.4 % (11.6-13.7); WHITE BLOOD COUNT (AUTO) 8.5 K/uL (4.8-10.8)
[2020-03-05 07:16] LABS: ANION GAP 7.6 (8-16); CARBON DIOXIDE 35.2 mmol/L (21-32); CREATININE 0.6 mg/dL (0.6-1.3); POTASSIUM 4.8 mmol/L (3.5-5.1)
--- NOTE | 2020-03-05 07:40 | NUR ---
ENDORSED TO DAY SHIFT RN FOR CONTINUITY OF CARE
--- NOTE | 2020-03-05 07:41 | NUR ---
RECEIVED REPORT FROM ZINC MINER BLASTING PATIENT IN CRITICAL CONDITION. WILL CONTINUE TO MONITOR.
[2020-03-05] MEDS: methylPREDNISolone SS 40 MG/ML VIAL IVP SCH ×2 (10:03→21:00)
[2020-03-05] MEDS: PANTOPRAZOLE 40 MG INJ VIAL IVP SCH (10:03)
[2020-03-05] MEDS: POLYETHYLENE GLYCOL 17 GM/PKT PO SCH ×2 (10:03→21:00)
[2020-03-05] MEDS: ENOXAPARIN 100 MG/ML SYR SUBQ SCH ×2 (10:05→22:00)
--- NOTE | 2020-03-05 10:05 | NUR ---
SCHEDULED MEDICATIONS DUE GIVEN. WILL CONTINUE TO MONITOR.
--- NOTE | 2020-03-05 12:37 | NUR ---
03/05/20 RD FOLLOW UP COMPLETED. PLEASE REFER TO NUTRITION ASSESSMENT UNDER CARE ACTIVITY FOR ESTIMATED NUTRITIONAL NEEDS. 1. RECOMMEND CONTINUING JEVITY 1.2 @ 80 ML/HR X 8 HOURS WITH PROSOURCE BID THIS WILL PROVIDE 888 KCAL AND 65 GM OF PROTEIN 2. RECOMMEND CONTINUE FLUSH OF [address] TO FOLLOW-UP 2-3 DAYS, HIGH RISK LUIS ALFREDO SHIN RD
--- NOTE | 2020-03-05 15:40 | NUR ---
PT SUPINE RN AT BEDSIDE AND ETT SECURED
--- NOTE | 2020-03-05 15:40 | NUR ---
PATIENT SUPINED AT THIS TIME. WILL CONTINUE TO MONITOR.
--- NOTE | 2020-03-05 19:25 | NUR ---
GAVE REPORT TO BUDGET EXAMINER NURSE FOR CONTINUITY OF CARE. PATIENT IN CRITICAL CONDITION.
--- NOTE | 2020-03-05 19:30 | NUR ---
RECEIVED PATIENT FROM AM SHIFT NURSE FOR CONTINUITY OF CARE. ETT TO VENT. O2SAT 99%. SKIN WARM, DRY. PICC TO LEROY NOTED, INFUSING FLUIDS WELL. RASS -3. FLACC 0. NO S/S ACUTE DISTRESS. ABDOMEN SOFT, NONTENDER, NONDISTENDED. CONTINUES ON ENTERAL FEEDING, TOLERATING WELL. BOWEL SOUNDS ACTIVE X4 QUADRANTS. CARMEN CATHETER PATENT WITH YELLOW URINE DRAINING TO GRAVITY. RECTAL TUBE IN PLACE. PLAN OF CARE DISCUSSED. ISOLATION PRECAUTIONS OBSERVED BY ALL STAFF.
[2020-03-06] VITALS (26 sets, daily range): BP systolic 115–172; BP diastolic 64–101
[2020-03-06] MEDS: Z-GUARD PASTE TP SCH ×2 (01:00→13:03)
[2020-03-06] MEDS: ACETAMINOPHEN 325 MG TAB PO PRN (04:37)
[2020-03-06] MEDS: fentaNYL citrate - 50mL vial 2.5 MG in NACL 0.9% 200 ML IV PRN ×2 (04:39→18:43)
[2020-03-06] MEDS: NACL 0.9% 1,000 ML IV SCH (04:40)
[2020-03-06] MEDS: MIDAZOLAM MDV 100 MG in NACL 0.9% 80 ML IV PRN (04:42)
[2020-03-06 07:03] LABS: BASOPHILS % (AUTO) 0.3 % (0.0-2.0); HEMATOCRIT 31.1 % (36-48); HEMOGLOBIN 10.1 g/dL (12.0-16.0); LYMPHOCYTES # (AUTO) 0.2 K/uL (2.5-16.5); MEAN CORPUSCULAR HEMOGLOBIN 29 pg (27-31); MEAN CORPUSCULAR HGB CONC 33 g/dL (33-37); MEAN CORPUSCULAR VOLUME 89.3 fL (80-94); MONOCYTES # (AUTO) 0.3 K/uL (0.8-1.0); MONOCYTES % (AUTO) 3.5 % (1.7-9.3); NEUTROPHILS # (AUTO) 9.3 K/uL (1.8-7.7); PLATELET COUNT (AUTO) 160 K/uL (140-450); RED BLOOD CELL COUNT(AUTO) 3.49 MIL/uL (4.20-5.40); RED CELL DISTRIBUTION WIDTH 14.4 % (11.6-13.7); WHITE BLOOD COUNT (AUTO) 9.9 K/uL (4.8-10.8)
[2020-03-06 07:13] LABS: ANION GAP 4.3 (8-16); CARBON DIOXIDE 37.4 mmol/L (21-32); CREATININE 0.6 mg/dL (0.6-1.3); POTASSIUM 4.7 mmol/L (3.5-5.1)
--- NOTE | 2020-03-06 07:25 | NUR ---
RECEIVED REPORT FROM AM SHIFT NURSE. PATIENT CONTINUES TO BE IN CRITICAL CONDITION. WILL CONTINUE TO MONITOR.
[2020-03-06] MEDS: BLOOD GLUCOSE MONITORING 1 DEV DEV FS SCH ×4 (07:42→21:49)
[2020-03-06 07:59] LABS: LYMPHOCYTES % (AUTO) 2.2 % (20.5-51.1)
[2020-03-06] MEDS: methylPREDNISolone SS 40 MG/ML VIAL IVP SCH ×2 (10:11→21:49)
[2020-03-06] MEDS: PANTOPRAZOLE 40 MG INJ VIAL IVP SCH (10:11)
[2020-03-06] MEDS: ENOXAPARIN 100 MG/ML SYR SUBQ SCH ×2 (10:12→21:50)
[2020-03-06] MEDS: POLYETHYLENE GLYCOL 17 GM/PKT PO SCH ×2 (10:12→21:49)
--- NOTE | 2020-03-06 13:03 | NUR ---
SCHEDULED MEDICATIONS DUE GIVEN. WILL CONTINUE TO MONITOR.
[2020-03-06] MEDS: INSULIN LISPRO SLIDING SCALE 100 UNITS/ML VIAL SUBQ PRN (17:11)
--- NOTE | 2020-03-06 17:11 | NUR ---
SCHEDULED MEDICATIONS DUE GIVEN. WILL CONTINUE TO MONITOR.
--- NOTE | 2020-03-06 18:00 | NUR ---
REPOSITIONED PATIENT. WILL CONTINUE TO MONITOR.
--- NOTE | 2020-03-06 19:35 | NUR ---
GAVE REPORT TO FULL STACK JAVA DEVELOPER NURSE FOR CONTINUITY OF CARE. PATIENT IN CRITICAL CONDITION.
--- NOTE | 2020-03-06 19:40 | NUR ---
RECEIVED PATIENT FROM AM SHIFT NURSE FOR CONTINUITY OF CARE. ETT TO VENT. O2SAT 90%. SUCTIONED SCANT THIN WHITE SECRETIONS. OGT PATENT/INTACT. SKIN WARM, DRY. PICC TO LEROY NOTED, INFUSING FLUIDS WELL. RASS -3. FLACC 0. NO S/S ACUTE DISTRESS. ABDOMEN SOFT, NONTENDER, NONDISTENDED. BOWEL SOUNDS ACTIVE X4 QUADRANTS. CONTINUES ON ENTERAL FEEDING, TOLERATING WELL. BOWEL SOUNDS ACTIVE X4 QUADRANTS. CARMEN CATHETER PATENT WITH YELLOW URINE DRAINING TO GRAVITY. RECTAL TUBE IN PLACE. PLAN OF CARE DISCUSSED. ISOLATION PRECAUTIONS OBSERVED BY ALL STAFF.
--- NOTE | 2020-03-06 20:30 | NUR ---
RECEIVED PT ON PB 840 VENTILATOR PLUGGED INTO THE RED OUTLET TOLERATING WELL WITHOUT ANY ADVERSE REACTION NOTED. INTUBATED WITH ETT 7.5 SECURED WITH ANCHOR FAST @ 23@ THE LIP. ALARM SET AUDIBLE AMBU BAG AT BEDSIDE. PT HAS GOOD CHEST RISE AND FALL, AIRWAY PATENT. WILL CONTINUE TO MONITOR.
[2020-03-07] VITALS (26 sets, daily range): BP systolic 108–200; BP diastolic 53–116
[2020-03-07] MEDS: MIDAZOLAM MDV 100 MG in NACL 0.9% 80 ML IV PRN ×3 (01:46→20:50)
[2020-03-07] MEDS: Z-GUARD PASTE TP SCH ×2 (01:49→13:19)
--- NOTE | 2020-03-07 01:51 | NUR ---
PATIENT PLACED IN PRONE POSITION AT THIS TIME. NO S/S ACUTE DISTRESS. FREQUENT ROUNDS BY ALL STAFF.
[2020-03-07] MEDS: NACL 0.9% 1,000 ML IV SCH (04:40)
[2020-03-07] MEDS: BLOOD GLUCOSE MONITORING 1 DEV DEV FS SCH ×4 (06:33→20:30)
[2020-03-07 06:48] LABS: ANION GAP 2.4 (8-16); CARBON DIOXIDE 39.3 mmol/L (21-32); CREATININE 0.5 mg/dL (0.6-1.3); POTASSIUM 4.7 mmol/L (3.5-5.1)
[2020-03-07 06:53] LABS: BASOPHILS % (AUTO) 0.3 % (0.0-2.0); EOSINOPHILS % (AUTO) 0.2 % (0.0-4.0); HEMATOCRIT 26.3 % (36-48); HEMOGLOBIN 8.4 g/dL (12.0-16.0); LYMPHOCYTES # (AUTO) 0.3 K/uL (2.5-16.5); LYMPHOCYTES % (AUTO) 3.7 % (20.5-51.1); MEAN CORPUSCULAR HEMOGLOBIN 29 pg (27-31); MEAN CORPUSCULAR HGB CONC 32 g/dL (33-37); MEAN CORPUSCULAR VOLUME 90.7 fL (80-94); MONOCYTES # (AUTO) 0.2 K/uL (0.8-1.0); MONOCYTES % (AUTO) 2.5 % (1.7-9.3); NEUTROPHILS # (AUTO) 6.7 K/uL (1.8-7.7); NEUTROPHILS % (AUTO) 93.3 % (42.2-75.2); PLATELET COUNT (AUTO) 149 K/uL (140-450); RED BLOOD CELL COUNT(AUTO) 2.89 MIL/uL (4.20-5.40); RED CELL DISTRIBUTION WIDTH 14.8 % (11.6-13.7); WHITE BLOOD COUNT (AUTO) 7.2 K/uL (4.8-10.8)
--- NOTE | 2020-03-07 07:40 | NUR ---
RECEIVED REPORT FROM MAIL RIDER NURSE. PATIENT IN CRITICAL CONDITION. WILL CONTINUE TO MONITOR.
[2020-03-07] MEDS: fentaNYL citrate - 50mL vial 2.5 MG in NACL 0.9% 200 ML IV PRN ×2 (09:02→22:48)
[2020-03-07] MEDS: PANTOPRAZOLE 40 MG INJ VIAL IVP SCH (09:10)
[2020-03-07] MEDS: methylPREDNISolone SS 40 MG/ML VIAL IVP SCH ×2 (09:11→21:18)
[2020-03-07] MEDS: ENOXAPARIN 100 MG/ML SYR SUBQ SCH ×2 (09:11→21:18)
[2020-03-07] MEDS: POLYETHYLENE GLYCOL 17 GM/PKT PO SCH ×2 (09:11→21:18)
--- NOTE | 2020-03-07 09:11 | NUR ---
SCHEDULED MEDICATIONS DUE GIVEN. WILL CONTINUE TO MONITOR.
--- NOTE | 2020-03-07 19:30 | NUR ---
RECEIVED PATIENT FROM AM SHIFT NURSE FOR CONTINUITY OF CARE. ETT TO VENT. O2SAT 100%. OGT PATENT/INTACT. SKIN WARM, DRY. PICC TO LEROY NOTED, INFUSING FLUIDS WELL. RASS -3. FLACC 0. NO S/S ACUTE DISTRESS. ABDOMEN SOFT, NONTENDER, NONDISTENDED. BOWEL SOUNDS ACTIVE X4 QUADRANTS. CONTINUES ON ENTERAL FEEDING, TOLERATING WELL. BOWEL SOUNDS ACTIVE X4 QUADRANTS. CARMEN CATHETER PATENT WITH YELLOW URINE DRAINING TO GRAVITY. RECTAL TUBE IN PLACE. PLAN OF CARE DISCUSSED. ISOLATION PRECAUTIONS OBSERVED BY ALL STAFF.
[2020-03-08] VITALS (32 sets, daily range): BP systolic 91–219; BP diastolic 47–116
[2020-03-08] MEDS: Z-GUARD PASTE TP SCH ×2 (01:16→12:05)
[2020-03-08] MEDS: NACL 0.9% 1,000 ML IV SCH (04:36)
[2020-03-08] MEDS: BLOOD GLUCOSE MONITORING 1 DEV DEV FS SCH ×4 (06:31→21:00)
[2020-03-08 06:45] LABS: BASOPHILS % (AUTO) 0.1 % (0.0-2.0); HEMATOCRIT 27.9 % (36-48); HEMOGLOBIN 8.9 g/dL (12.0-16.0); LYMPHOCYTES # (AUTO) 0.3 K/uL (2.5-16.5); LYMPHOCYTES % (AUTO) 3.4 % (20.5-51.1); MEAN CORPUSCULAR HEMOGLOBIN 29 pg (27-31); MEAN CORPUSCULAR HGB CONC 32 g/dL (33-37); MEAN CORPUSCULAR VOLUME 90.7 fL (80-94); MONOCYTES # (AUTO) 0.3 K/uL (0.8-1.0); MONOCYTES % (AUTO) 3.1 % (1.7-9.3); NEUTROPHILS # (AUTO) 8.2 K/uL (1.8-7.7); NEUTROPHILS % (AUTO) 93.4 % (42.2-75.2); PLATELET COUNT (AUTO) 157 K/uL (140-450); RED BLOOD CELL COUNT(AUTO) 3.07 MIL/uL (4.20-5.40); RED CELL DISTRIBUTION WIDTH 14.6 % (11.6-13.7); WHITE BLOOD COUNT (AUTO) 8.7 K/uL (4.8-10.8)
[2020-03-08 06:51] LABS: ANION GAP 4.7 (8-16); CREATININE 0.5 mg/dL (0.6-1.3); POTASSIUM 5.2 mmol/L (3.5-5.1)
[2020-03-08 06:55] LABS: CARBON DIOXIDE 40.5 mmol/L (21-32)
[2020-03-08] MEDS: MIDAZOLAM MDV 100 MG in NACL 0.9% 80 ML IV PRN ×2 (07:44→18:42)
[2020-03-08] MEDS: PANTOPRAZOLE 40 MG INJ VIAL IVP SCH (08:33)
[2020-03-08] MEDS: ENOXAPARIN 100 MG/ML SYR SUBQ SCH ×2 (08:33→20:32)
[2020-03-08] MEDS: POLYETHYLENE GLYCOL 17 GM/PKT PO SCH ×2 (08:33→20:31)
[2020-03-08] MEDS: methylPREDNISolone SS 40 MG/ML VIAL IVP SCH ×2 (08:33→20:31)
--- NOTE | 2020-03-08 08:34 | NUR ---
SCHEDULED MEDICATIONS DUE GIVEN. WILL CONTINUE TO MONITOR.
--- NOTE | 2020-03-08 12:00 | NUR ---
PERFORMED ORAL CARE AND REPOSITIONED PATIENT. WILL CONTINUE TO MONITOR
[2020-03-08] MEDS: fentaNYL citrate - 50mL vial 2.5 MG in NACL 0.9% 200 ML IV PRN (13:23)
--- NOTE | 2020-03-08 14:00 | NUR ---
DR. MATTHEWS AT BEDSIDE REVIEWING PLAN OF CARE WITH PATIENT. WILL CONTINUE TO MONITOR.
[2020-03-08] MEDS ORDERED: hydrALAZINE 20 MG/ML VIAL IVP PRN ×2 (14:10→14:35)
[2020-03-08] MEDS ORDERED: PROPOFOL 1000 MG/100 ML PREMIX 100 ML IV PRN (14:55)
[2020-03-08] MEDS: PROPOFOL 1000 MG/100 ML PREMIX 100 ML IV PRN ×2 (15:15→22:10)
--- NOTE | 2020-03-08 15:18 | NUR ---
03/08/20 RD FOLLOW UP COMPLETED PLEASE REFER TO NUTRITION ASSESSMENT UNDER CARE ACTIVITY FOR ESTIMATED NUTRITIONAL NEEDS. 1. CONTINUE WHEN MEDICALLY APPROPRIATE JEVITY 1.2 @ 80 ML/HR X 8 HOURS WITH PROSOURCE BID -THIS WILL PROVIDE 888 KCAL AND 65 GM OF PROTEIN, MEETING 86% OF ESTIMATED KCAL NEEDS AND 90% OF PROTEIN NEEDS. 2. RECOMMEND CONTINUE FLUSH OF [address] TO FOLLOW-UP 2-3 DAYS, HIGH RISK BETZAIDA KEATING RD
--- NOTE | 2020-03-08 19:45 | NUR ---
GAVE REPORT TO BILINGUAL LEGAL ASSISTANT NURSE FOR CONTINUITY OF CARE. PATIENT IN CRITICAL CONDITION.
--- NOTE | 2020-03-08 20:15 | NUR ---
RECEIVED REPORT FROM [facility] NURSE. PT ETT TO VENT, AC PC FI02 80% RATE 30, PEEP 8. OGT IN PLACE. FEEDING OFF AT THIS TIME. RIGHT FA 20G, SL. LEROY PICC INFUSING FENTANYL 2.2 MCG/KG/HR, VERSED 12MG/HR, AND PROPOFOL 20MCG/KG/MIN. DRY WEIGHT 92 KG, RASS -3. SKIN WARM AND DRY, SOME REDNESS/INCONTINENT DERMATITIS NOTED. OPTIFOAM DRESSING IN PLACE. RECTAL TUBE AND CARMEN CATHETER IN PLACE. HOB 30 DEGREES, SIDE RAILS UP, BED LOCKED AND IN LOWEST POSITION. WILL CONTINUE TO MONITOR.
--- NOTE | 2020-03-08 21:30 | NUR ---
AIR CHECK CONFIRMED OGT PLACEMENT. SCHEDULED MEDS GIVEN. GASTRIC RESIDUALS LESS THAN 20ML. RESTARTED TUBE FEEDING. TURNED AND REPOSITIONED PATIENT. FLACC 0. SAFETY MEASURES IN PLACE.
--- NOTE | 2020-03-08 22:20 | NUR ---
CHANGED BP CUFF TO OTHER SITE AND CHANGED CUFF SIZE. BP WITHIN RANGE. ALL OTHER VITALS WITHIN RANGE.
[2020-03-09] VITALS (34 sets, daily range): BP systolic 82–167; BP diastolic 41–97
--- NOTE | 2020-03-09 00:30 | NUR ---
PATIENT SUCCESSFULLY PRONED WITHOUT INCIDENT. ETT INTACT. PRESSURE AREAS OFFLOADED. CONTINUOUS MONITORING IN PLACE. REVERSE [place]. FLACC 0. SEDATED RASS -3. PT TOLERATING WELL, SP02 98%. WILL CONTINUE TO MONITOR.
[2020-03-09] MEDS: PIPERACILLIN/TAZOBACTAM 3.375 GM in DEXTROSE 5% 50 ML IV SCH ×4 (00:45→18:00)
[2020-03-09] MEDS: Z-GUARD PASTE TP SCH ×2 (01:15→12:51)
[2020-03-09] MEDS: MIDAZOLAM MDV 100 MG in NACL 0.9% 80 ML IV PRN ×2 (02:20→21:03)
[2020-03-09] MEDS: fentaNYL citrate - 50mL vial 2.5 MG in NACL 0.9% 200 ML IV PRN ×2 (02:22→15:38)
[2020-03-09] MEDS: NACL 0.9% 1,000 ML IV SCH (04:40)
[2020-03-09 06:40] LABS: ANION GAP 3.4 (8-16); CREATININE 0.4 mg/dL (0.6-1.3); POTASSIUM 4.7 mmol/L (3.5-5.1)
[2020-03-09 06:46] LABS: BASOPHILS % (AUTO) 0.5 % (0.0-2.0); EOSINOPHILS % (AUTO) 0.2 % (0.0-4.0); HEMATOCRIT 25.4 % (36-48); HEMOGLOBIN 8.1 g/dL (12.0-16.0); LYMPHOCYTES # (AUTO) 0.4 K/uL (2.5-16.5); LYMPHOCYTES % (AUTO) 4.4 % (20.5-51.1); MEAN CORPUSCULAR HEMOGLOBIN 29 pg (27-31); MEAN CORPUSCULAR HGB CONC 32 g/dL (33-37); MEAN CORPUSCULAR VOLUME 89.4 fL (80-94); MONOCYTES # (AUTO) 0.2 K/uL (0.8-1.0); MONOCYTES % (AUTO) 2.6 % (1.7-9.3); NEUTROPHILS # (AUTO) 7.9 K/uL (1.8-7.7); NEUTROPHILS % (AUTO) 92.3 % (42.2-75.2); PLATELET COUNT (AUTO) 156 K/uL (140-450); RED BLOOD CELL COUNT(AUTO) 2.84 MIL/uL (4.20-5.40); RED CELL DISTRIBUTION WIDTH 14.4 % (11.6-13.7); WHITE BLOOD COUNT (AUTO) 8.6 K/uL (4.8-10.8)
[2020-03-09] MEDS: BLOOD GLUCOSE MONITORING 1 DEV DEV FS SCH ×4 (07:17→20:44)
[2020-03-09] MEDS: PROPOFOL 1000 MG/100 ML PREMIX 100 ML IV PRN ×2 (07:19→15:44)
--- NOTE | 2020-03-09 07:40 | NUR ---
RECEIVED PATIENT FROM RESEARCH PROJECT COORDINATOR ON PB 840. PC 20, R 30, PEEP 8, FIO2 80%. VENT PLUGGED INTO RED OUTLET. BMV AT BEDSIDE, ETT SECURED WITH AN ANCHOR FAST 7.5 @23Cm AT LIP. ALARMS SET AUDIBLE, PATIENT IS IN PRONE POSITION. NO RESPIRATORY DISTRESS NOTED. WILL CONTINUE TO MONITOR FOR CHANGES IN RESPIRATORY STATUS.
--- NOTE | 2020-03-09 07:40 | NUR ---
RECEIVED REPORT FROM MASTER MACHINIST NURSE. PATIENT IN CRITICAL CONDITION. WILL CONTINUE TO MONITOR.
[2020-03-09 08:21] LABS: CARBON DIOXIDE 41.3 mmol/L (21-32)
[2020-03-09] MEDS: methylPREDNISolone SS 40 MG/ML VIAL IVP SCH ×2 (08:57→20:06)
[2020-03-09] MEDS: POLYETHYLENE GLYCOL 17 GM/PKT PO SCH ×2 (08:57→20:06)
[2020-03-09] MEDS: PANTOPRAZOLE 40 MG INJ VIAL IVP SCH (08:57)
[2020-03-09] MEDS: ENOXAPARIN 100 MG/ML SYR SUBQ SCH ×2 (08:58→20:06)
--- NOTE | 2020-03-09 12:51 | NUR ---
BLOOD GLUCOSE CHECKED, 92 NO COVERAGE NEEDED. ADMINISTERED SCHEDULED ZOSYN AND APPLIED Z-GUARD ON SACRAL AND PERINEAL AREA.
--- NOTE | 2020-03-09 19:40 | NUR ---
REPORT GIVEN TO DYNAM[facility] CARTRIDGE CRIMPER NURSE FOR CONTINUITY OF CARE. PATIENT IN CRITICAL CONDITION.
--- NOTE | 2020-03-09 19:58 | NUR ---
RECEIVED REPORT FROM [facility] NURSE. PT ETT TO VENT, AC PC FI02 80% RATE 30, PEEP 8. OGT IN PLACE. FEEDING JEVITY 1.2 @ 60ML/HR. RIGHT FA 20G, SL. LEROY PICC INFUSING FENTANYL 2.2 MCG/KG/HR, VERSED 12MG/HR, AND PROPOFOL 20MCG/KG/MIN. DRY WEIGHT 92 KG, RASS -3. PER DR. MATTHEWS, ORDERED FENTANYL @ 2.2MCG. SKIN WARM AND DRY, SOME REDNESS/INCONTINENT DERMATITIS NOTED. OPTIFOAM DRESSING IN PLACE. RECTAL TUBE AND CARMEN CATHETER IN PLACE. HOB 30 DEGREES, SIDE RAILS UP, BED LOCKED AND IN LOWEST POSITION. WILL CONTINUE TO MONITOR.
--- NOTE | 2020-03-09 21:15 | NUR ---
CONFIRMED OGT PLACEMENT VIA AUSCULTATION. GASTRIC RESIDUALS 20ML. TOLERATING WELL. SCHEDULED MEDS GIVEN. BLOOD SUGAR WITHIN RANGE, NO COVERAGE NEEDED. TURNED AND REPOSITIONED PATIENT. PROVIDED ORAL CARE. HOB 30 DEGREES, FLACC 0. WILL CONTINUE TO MONITOR.
--- NOTE | 2020-03-09 21:50 | NUR ---
DECREASED FI02 TO 75%, PT TOLERATING WELL, SP02 94%, RT AT BEDSIDE, AWARE.
--- NOTE | 2020-03-09 23:20 | NUR ---
PT TURNED BACK TO 80% FI02 DUE TO DESATTING TO 85%. RT MADE AWARE.
[2020-03-10] VITALS (27 sets, daily range): BP systolic 75–188; BP diastolic 40–110
[2020-03-10] MEDS: PROPOFOL 1000 MG/100 ML PREMIX 100 ML IV PRN ×3 (01:08→20:08)
[2020-03-10] MEDS: Z-GUARD PASTE TP SCH ×2 (01:09→13:00)
--- NOTE | 2020-03-10 01:30 | NUR ---
TUBE FEEDING HELD. PROVIDED ORAL CARE. PT TURNED PRONED SUCCESSFULLY WITHOUT INCIDENT. ETT INTACT, ABLE TO PASS CATHETER THROUGH. PT TOLERATED WELL. FLACC 0. SIDE RAILS UP, BED LOCKED AND IN REVERSE [place]. RASS -3. WILL CONTINUE TO MONITOR.
[2020-03-10] MEDS: fentaNYL citrate - 50mL vial 2.5 MG in NACL 0.9% 200 ML IV PRN ×2 (04:43→19:00)
[2020-03-10] MEDS: MIDAZOLAM MDV 100 MG in NACL 0.9% 80 ML IV PRN ×3 (04:44→22:53)
[2020-03-10] MEDS: PIPERACILLIN/TAZOBACTAM 3.375 GM in DEXTROSE 5% 50 ML IV SCH ×5 (05:16→18:00)
[2020-03-10] MEDS: BLOOD GLUCOSE MONITORING 1 DEV DEV FS SCH ×4 (06:18→20:29)
[2020-03-10 06:51] LABS: HEMATOCRIT 31.1 % (36-48); HEMOGLOBIN 10.2 g/dL (12.0-16.0); MEAN CORPUSCULAR HEMOGLOBIN 29 pg (27-31); MEAN CORPUSCULAR HGB CONC 33 g/dL (33-37); MEAN CORPUSCULAR VOLUME 87.9 fL (80-94); PLATELET COUNT (AUTO) 212 K/uL (140-450); RED BLOOD CELL COUNT(AUTO) 3.54 MIL/uL (4.20-5.40); RED CELL DISTRIBUTION WIDTH 14.3 % (11.6-13.7); WHITE BLOOD COUNT (AUTO) 17.7 K/uL (4.8-10.8)
[2020-03-10] MEDS: NACL 0.9% 1,000 ML IV SCH ×2 (07:00→15:50)
[2020-03-10 07:02] LABS: ALBUMIN 2.2 g/dL (3.4-5.0); ANION GAP 8.7 (8-16); CARBON DIOXIDE 35.4 mmol/L (21-32); CREATININE 0.5 mg/dL (0.6-1.3); MAGNESIUM 2.2 mg/dL (1.8-2.4); PHOSPHORUS 3.5 mg/dL (2.5-4.9); POTASSIUM 4.1 mmol/L (3.5-5.1); TOTAL BILIRUBIN 0.8 mg/dL (0.0-1.0)
--- NOTE | 2020-03-10 08:00 | NUR ---
RECEIVED BEDSIDE REPORT FROM VP SOFTWARE ENGINEERING NURSE, RASS -3. RECIEVED PT IN PRONE POSITION/ REVERSE TRENDELENBURG. PT ON ETT TO VENT AC P/C FIO2 82%, RATE 30, PEEP 8, SATURATING @ 90%. S1S2 NOTED UPON AUSCULTATION, PT HAS LEROY PICC LINE RUNNING PROPOFOL 20 MCG/KG/MIN, VERSED 12 MH/HR, FENTANYL 2.2 MCG/KG/HR, AND NS 0.9% @ 10ML/HR. ASYMPTOMATIC/PATENT. BOWEL SOUNDS ACTIVE IN ALL 4 QUADRANTS. OG-TUBE IN PLACE, NO RESIDUAL NOTED. CARMEN CATH IN PLACE DRAINING TO GRAVITY. SKIN TEAR TO SACRAL/RECTAL AREA. SAFETY MEASURES IN PLACE, BED LOW AND LOCKED, SIDE RAILS UP, CALL LIGHT WITHIN REACH, WILL CONTINUE TO MONITOR.
[2020-03-10] MEDS: PANTOPRAZOLE 40 MG INJ VIAL IVP SCH (09:00)
[2020-03-10] MEDS: POLYETHYLENE GLYCOL 17 GM/PKT PO SCH ×2 (09:00→20:07)
[2020-03-10] MEDS: methylPREDNISolone SS 40 MG/ML VIAL IVP SCH ×2 (09:00→20:07)
[2020-03-10] MEDS: ENOXAPARIN 100 MG/ML SYR SUBQ SCH ×2 (09:00→20:08)
--- NOTE | 2020-03-10 10:00 | NUR ---
PTs CONDITION REMAINS UNCHANGED, SUCTIONED, WILL CONT. TO MONITOR.
[2020-03-10 10:59] LABS: LYMPHOCYTES % (MANUAL) 1 % (20-46); MONOCYTES % (MANUAL) 2 % (5-12)
--- NOTE | 2020-03-10 12:00 | NUR ---
NO S/S OF DISTRESS NOTED, WILL CONT TO MONITOR.
--- NOTE | 2020-03-10 15:50 | NUR ---
DR MATTHEWS ON UNIT, UPDATED ON PTs CONDITION, PER MD, ORDER NS 0.9% AT A RATE OF 20ML/HR.
--- NOTE | 2020-03-10 17:20 | NUR ---
pt supine rn at bedside and ett secured
--- NOTE | 2020-03-10 17:30 | NUR ---
ROUTINE CARE GIVEN, VAP ORAL CARE, CARMEN CARE, CHG BATH, CLEAN LINENS. NO S/S OF DISTRESS NOTED. SAFETY MEASURES IN PLACE, BED LOW AND LOCKED, WILL CONT TO MONITOR
--- NOTE | 2020-03-10 19:48 | NUR ---
RECEIVED REPORT FROM [facility] NURSE. PT ETT TO VENT, AC PC FI02 80% RATE 30, PEEP 8. OGT IN PLACE. FEEDING JEVITY 1.2 @ 80ML/HR. RIGHT FA 20G, SL. LEROY PICC INFUSING FENTANYL 2.2 MCG/KG/HR, VERSED 12MG/HR, AND PROPOFOL 25MCG/KG/MIN. DRY WEIGHT 92 KG, RASS -3. PER DR. MATTHEWS, ORDERED FENTANYL @ 2.2MCG. SKIN WARM AND DRY, SOME REDNESS/INCONTINENT DERMATITIS NOTED, SMALL SKIN TEAR ON INNER BUTTOCK. OPTIFOAM DRESSING IN PLACE. RECTAL TUBE AND CARMEN CATHETER IN PLACE. HOB 30 DEGREES, SIDE RAILS UP, BED LOCKED AND IN LOWEST POSITION. WILL CONTINUE TO MONITOR.
[2020-03-11] VITALS (28 sets, daily range): BP systolic 82–184; BP diastolic 39–90
[2020-03-11] MEDS: Z-GUARD PASTE TP SCH ×2 (00:05→12:18)
[2020-03-11] MEDS: PIPERACILLIN/TAZOBACTAM 3.375 GM in DEXTROSE 5% 50 ML IV SCH ×4 (00:05→17:10)
--- NOTE | 2020-03-11 02:00 | NUR ---
SUCCESSFULLY PRONED WITHOUT INCIDENT. ETT INTACT, OGT IN PLACE, FEEDING OFF AT THIS TIME. OFFLOADED FACE AND CHEST WITH PILLOWS. REVERSE [place]DE[place]. BED LOCKED AND SIDE RAILS UP. WILL CONTINUE TO MONITOR.
--- NOTE | 2020-03-11 02:06 | NUR ---
PLACED PATIENT IN PRONE POSITION. PATIENT TOLERATED PROCEDURE WELL. SUCTION SMALL AMOUNT OF YELLOW THICK SECRETIONS FROM ETT. ETT SECURED AND AIRWAY IS PATENT. BILATERAL BREATH SOUNDS ON AUSCULTATION. PATIENT IS IN NO RESPIRATORY DISTRESS AT THIS TIME. RNs AT BEDSIDE. WILL CONTINUE TO MONITOR PATIENT.
--- NOTE | 2020-03-11 07:30 | NUR ---
RECEIVED REPORT FROM LPN PER DIEM NURSE. PATIENT IN CRITICAL CONDITION. WILL CONTINUE TO MONITOR.
[2020-03-11] MEDS: fentaNYL citrate - 50mL vial 2.5 MG in NACL 0.9% 200 ML IV PRN (08:05)
[2020-03-11] MEDS: MIDAZOLAM MDV 100 MG in NACL 0.9% 80 ML IV PRN (08:07)
[2020-03-11] MEDS: BLOOD GLUCOSE MONITORING 1 DEV DEV FS SCH ×4 (08:13→21:00)
[2020-03-11] MEDS: ENOXAPARIN 100 MG/ML SYR SUBQ SCH ×2 (09:57→21:00)
[2020-03-11] MEDS: methylPREDNISolone SS 40 MG/ML VIAL IVP SCH ×2 (09:59→21:00)
[2020-03-11] MEDS: POLYETHYLENE GLYCOL 17 GM/PKT PO SCH ×2 (09:59→21:00)
[2020-03-11] MEDS: PANTOPRAZOLE 40 MG INJ VIAL IVP SCH (09:59)
--- NOTE | 2020-03-11 10:00 | NUR ---
SCHEDULED MEDICATIONS DUE GIVEN. WILL CONTINUE TO MONITOR.
--- NOTE | 2020-03-11 11:14 | NUR ---
(03/11/20) RD FOLLOW UP COMPLETED PLEASE REFER TO NUTRITION PROGRESS NOTE UNDER CARE ACTIVITY FOR ESTIMATED NUTRITION NEEDS. RD RECOMMENDATIONS: 1. CONTINUE WHEN MEDICALLY APPROPRIATE JEVITY 1.2 @ 80 ML/HR X 8 HOURS WITH PROSOURCE BID -THIS WILL PROVIDE 888 KCAL AND 65 GM OF PROTEIN, MEETING 86% OF ESTIMATED KCAL NEEDS AND 90% OF PROTEIN NEEDS. 2. RECOMMEND CONTINUE FLUSH OF [address] TO FOLLOW-UP 2-3 DAYS, HIGH RISK JEAN CLAUDE MARTIN MS, RDN
[2020-03-11] MEDS: PROPOFOL 1000 MG/100 ML PREMIX 100 ML IV PRN ×3 (11:34→18:12)
[2020-03-11 11:54] LABS: BASOPHILS % (AUTO) 0.3 % (0.0-2.0); EOSINOPHILS # (AUTO) 0.3 K/uL (0-0.4); EOSINOPHILS % (AUTO) 2.5 % (0.0-4.0); HEMATOCRIT 27.4 % (36-48); HEMOGLOBIN 8.9 g/dL (12.0-16.0); LYMPHOCYTES # (AUTO) 0.7 K/uL (2.5-16.5); LYMPHOCYTES % (AUTO) 6.4 % (20.5-51.1); MEAN CORPUSCULAR HEMOGLOBIN 29 pg (27-31); MEAN CORPUSCULAR HGB CONC 33 g/dL (33-37); MEAN CORPUSCULAR VOLUME 88.3 fL (80-94); MONOCYTES # (AUTO) 0.3 K/uL (0.8-1.0); MONOCYTES % (AUTO) 2.9 % (1.7-9.3); NEUTROPHILS # (AUTO) 9.4 K/uL (1.8-7.7); NEUTROPHILS % (AUTO) 87.9 % (42.2-75.2); PLATELET COUNT (AUTO) 164 K/uL (140-450); WHITE BLOOD COUNT (AUTO) 10.8 K/uL (4.8-10.8)
[2020-03-11 12:11] LABS: ALBUMIN 1.7 g/dL (3.4-5.0); ANION GAP 6.7 (8-16); CARBON DIOXIDE 35.6 mmol/L (21-32); CREATININE 0.4 mg/dL (0.6-1.3); MAGNESIUM 2.2 mg/dL (1.8-2.4); POTASSIUM 3.3 mmol/L (3.5-5.1); TOTAL BILIRUBIN 0.5 mg/dL (0.0-1.0)
--- NOTE | 2020-03-11 12:19 | NUR ---
SCHEDULED MEDICATIONS DUE GIVEN. WILL CONTINUE TO MONITOR.
[2020-03-11] MEDS ORDERED: KCL 20 MEQ/WATER INJ PREMIX 200 ML IV ONE (13:30)
[2020-03-11] MEDS: NACL 0.9% 1,000 ML IV SCH (15:50)
--- NOTE | 2020-03-11 16:50 | NUR ---
SUPINED PATIENT AT THIS TIME. WILL CONTINUE TO MONITOR.
--- NOTE | 2020-03-11 17:12 | NUR ---
SCHEDULED MEDICATIONS DUE GIVEN. WILL CONTINUE TO MONITOR.
[2020-03-12] VITALS (26 sets, daily range): BP systolic 55–155; BP diastolic 35–78
[2020-03-12] MEDS: Z-GUARD PASTE TP SCH ×2 (01:00→13:00)
[2020-03-12] MEDS: PIPERACILLIN/TAZOBACTAM 3.375 GM in DEXTROSE 5% 50 ML IV SCH ×5 (05:17→17:03)
[2020-03-12] MEDS: BLOOD GLUCOSE MONITORING 1 DEV DEV FS SCH ×4 (06:41→21:05)
[2020-03-12 06:54] LABS: BASOPHILS % (AUTO) 0.3 % (0.0-2.0); EOSINOPHILS % (AUTO) 0.3 % (0.0-4.0); HEMATOCRIT 27.2 % (36-48); HEMOGLOBIN 8.9 g/dL (12.0-16.0); LYMPHOCYTES # (AUTO) 0.4 K/uL (2.5-16.5); LYMPHOCYTES % (AUTO) 3.3 % (20.5-51.1); MEAN CORPUSCULAR HEMOGLOBIN 29 pg (27-31); MEAN CORPUSCULAR HGB CONC 33 g/dL (33-37); MONOCYTES # (AUTO) 0.2 K/uL (0.8-1.0); MONOCYTES % (AUTO) 1.4 % (1.7-9.3); NEUTROPHILS # (AUTO) 12.3 K/uL (1.8-7.7); NEUTROPHILS % (AUTO) 94.7 % (42.2-75.2); PLATELET COUNT (AUTO) 168 K/uL (140-450); RED BLOOD CELL COUNT(AUTO) 3.09 MIL/uL (4.20-5.40); RED CELL DISTRIBUTION WIDTH 14.6 % (11.6-13.7)
[2020-03-12] MEDS ORDERED: ENOXAPARIN 100 MG/ML SYR SUBQ ONE (07:37)
[2020-03-12] MEDS: PROPOFOL 1000 MG/100 ML PREMIX 100 ML IV PRN ×3 (07:40→23:00)
[2020-03-12] MEDS: PANTOPRAZOLE 40 MG INJ VIAL IVP SCH (08:07)
[2020-03-12] MEDS: POLYETHYLENE GLYCOL 17 GM/PKT PO SCH ×2 (08:07→21:05)
[2020-03-12] MEDS: methylPREDNISolone SS 40 MG/ML VIAL IVP SCH ×2 (08:07→21:05)
[2020-03-12] MEDS: ENOXAPARIN 100 MG/ML SYR SUBQ SCH ×2 (08:07→21:05)
[2020-03-12 08:21] LABS: MAGNESIUM 1.7 mg/dL (1.8-2.4); PHOSPHORUS 3.7 mg/dL (2.5-4.9)
--- NOTE | 2020-03-12 09:49 | NUR ---
PT UPDATE GIVEN TO DR. TOMLINSON. STATED TO KEEP AMIODARONE DRIP CONTINUOUS @ 0.5 MG/MIN, HOLD IF HR GOES BELOW 40. WILL CONTINUE TO OBSERVE.
[2020-03-12] MEDS: MIDAZOLAM MDV 100 MG in NACL 0.9% 80 ML IV PRN ×2 (10:46→23:00)
--- NOTE | 2020-03-12 15:15 | NUR ---
SCHEDULED MEDICATIONS DUE GIVEN. WILL CONTINUE TO MONITOR.
--- NOTE | 2020-03-12 15:26 | NUR ---
SCHEDULED MEDICATIONS DUE GIVEN. WILL CONTINUE TO MONITOR.
[2020-03-12] MEDS: NACL 0.9% 1,000 ML IV SCH (15:55)
--- NOTE | 2020-03-12 17:03 | NUR ---
SCHEDULED MEDICATIONS DUE GIVEN. PICC LINE DRESSING CHANGED. WILL CONTINUE TO MONITOR.
--- NOTE | 2020-03-12 19:40 | NUR ---
GAVE REPORT TO HEMSTITCHER NURSE FOR CONTINUITY OF CARE. PATIENT IN CRITICAL CONDITION.
[2020-03-13] VITALS (22 sets, daily range): BP systolic 96–157; BP diastolic 49–86
[2020-03-13] MEDS: Z-GUARD PASTE TP SCH ×2 (01:00→13:22)
--- NOTE | 2020-03-13 06:08 | NUR ---
PT PRONED AND TOLERATING WELL
[2020-03-13] MEDS: BLOOD GLUCOSE MONITORING 1 DEV DEV FS SCH ×4 (06:44→21:51)
[2020-03-13] MEDS: PROPOFOL 1000 MG/100 ML PREMIX 100 ML IV PRN ×3 (06:45→22:00)
[2020-03-13] MEDS: PIPERACILLIN/TAZOBACTAM 3.375 GM in DEXTROSE 5% 50 ML IV SCH ×5 (06:46→17:29)
[2020-03-13] MEDS: PANTOPRAZOLE 40 MG INJ VIAL IVP SCH (09:00)
[2020-03-13] MEDS: methylPREDNISolone SS 40 MG/ML VIAL IVP SCH ×2 (09:03→21:52)
[2020-03-13] MEDS: POLYETHYLENE GLYCOL 17 GM/PKT PO SCH ×2 (09:03→21:52)
--- NOTE | 2020-03-13 09:30 | NUR ---
BEDSIDE REPORT RECEIVED FROM CONSULTING DATABASE ADMINISTRATOR NURSE AT 0720, PT IN PRONE POSITION, INTUBATED AND SEDATED, RASS -3 WITH PROPOFOL AT 25, FENTANYL 1.5, VERSED 9, ETT TO VENT PC FIO2 65%, PEEP 8, RR 30, RESP EVEN UNLABORED, GOOD RISE AND FALL OF HER BACK, SKIN WARM DRY COLOR WNL, CARMEN IN PLACE, DRIANING YELLOW GREEN TINGED URINE, AM MEDS GIVEN, PT ARTEMIO WELL, ORAL CARE LIMITED WHILE PRONE, CARMEN CARE DONE, CHG WIPE DONE, ALL SAFETY MEASURES IN PLACE, POC REVIEWED,
[2020-03-13] MEDS: MIDAZOLAM MDV 100 MG in NACL 0.9% 80 ML IV PRN (11:30)
[2020-03-13] MEDS: ENOXAPARIN 100 MG/ML SYR SUBQ SCH ×2 (11:31→21:52)
--- NOTE | 2020-03-13 12:05 | NUR ---
BEDSIDE GLUCOSE 98, NO INSULIN NEEDED PER SLIDING SCALE, PT REMAINS IN PRONE POSITION, NO ACUTE DISTRESS
[2020-03-13 12:59] LABS: ALBUMIN 1.9 g/dL (3.4-5.0); ANION GAP 8.9 (8-16); CARBON DIOXIDE 30.7 mmol/L (21-32); CREATININE 0.4 mg/dL (0.6-1.3); POTASSIUM 3.6 mmol/L (3.5-5.1); TOTAL BILIRUBIN 0.4 mg/dL (0.0-1.0)
[2020-03-13 13:23] LABS: BASOPHILS # (AUTO) 0.1 K/uL (0.00-0.22); BASOPHILS % (AUTO) 0.3 % (0.0-2.0); EOSINOPHILS # (AUTO) 0.2 K/uL (0-0.4); HEMATOCRIT 30.4 % (36-48); HEMOGLOBIN 9.9 g/dL (12.0-16.0); LYMPHOCYTES # (AUTO) 0.5 K/uL (2.5-16.5); LYMPHOCYTES % (AUTO) 2.8 % (20.5-51.1); MEAN CORPUSCULAR HEMOGLOBIN 29 pg (27-31); MEAN CORPUSCULAR HGB CONC 33 g/dL (33-37); MEAN CORPUSCULAR VOLUME 87.3 fL (80-94); MONOCYTES # (AUTO) 0.2 K/uL (0.8-1.0); MONOCYTES % (AUTO) 1.1 % (1.7-9.3); NEUTROPHILS % (AUTO) 94.8 % (42.2-75.2); PLATELET COUNT (AUTO) 240 K/uL (140-450); RED BLOOD CELL COUNT(AUTO) 3.48 MIL/uL (4.20-5.40); RED CELL DISTRIBUTION WIDTH 14.8 % (11.6-13.7)
--- NOTE | 2020-03-13 14:30 | NUR ---
DR ANTONIO AT BEDSIDE
[2020-03-13] MEDS: NACL 0.9% 1,000 ML IV SCH (15:50)
--- NOTE | 2020-03-13 16:45 | NUR ---
BEDSIDE GLUCOSE 104, NO INSULIN NEEDED PER SLIDING SCALE
[2020-03-13] MEDS: fentaNYL citrate - 50mL vial 2.5 MG in NACL 0.9% 200 ML IV PRN (17:13)
[2020-03-14] VITALS (11 sets, daily range): BP systolic 97–175; BP diastolic 48–78
[2020-03-14] MEDS: Z-GUARD PASTE TP SCH ×2 (01:00→13:00)
[2020-03-14] MEDS: MIDAZOLAM MDV 100 MG in NACL 0.9% 80 ML IV PRN ×2 (05:16→16:24)
[2020-03-14] MEDS: PIPERACILLIN/TAZOBACTAM 3.375 GM in DEXTROSE 5% 50 ML IV SCH ×5 (06:00→18:00)
[2020-03-14 07:06] LABS: BASOPHILS % (AUTO) 0.1 % (0.0-2.0); EOSINOPHILS % (AUTO) 0.2 % (0.0-4.0); HEMATOCRIT 24.4 % (36-48); LYMPHOCYTES # (AUTO) 0.4 K/uL (2.5-16.5); LYMPHOCYTES % (AUTO) 3.1 % (20.5-51.1); MEAN CORPUSCULAR HEMOGLOBIN 29 pg (27-31); MEAN CORPUSCULAR HGB CONC 33 g/dL (33-37); MEAN CORPUSCULAR VOLUME 88.3 fL (80-94); MONOCYTES # (AUTO) 0.2 K/uL (0.8-1.0); MONOCYTES % (AUTO) 1.9 % (1.7-9.3); NEUTROPHILS # (AUTO) 11.7 K/uL (1.8-7.7); NEUTROPHILS % (AUTO) 94.7 % (42.2-75.2); PLATELET COUNT (AUTO) 186 K/uL (140-450); RED BLOOD CELL COUNT(AUTO) 2.76 MIL/uL (4.20-5.40); RED CELL DISTRIBUTION WIDTH 14.9 % (11.6-13.7); WHITE BLOOD COUNT (AUTO) 12.3 K/uL (4.8-10.8)
[2020-03-14 07:41] LABS: ANION GAP 10.3 (8-16); CARBON DIOXIDE 26.7 mmol/L (21-32); CREATININE 0.3 mg/dL (0.6-1.3)
[2020-03-14] MEDS: BLOOD GLUCOSE MONITORING 1 DEV DEV FS SCH ×4 (08:29→21:00)
[2020-03-14] MEDS: PANTOPRAZOLE 40 MG INJ VIAL IVP SCH (08:29)
[2020-03-14] MEDS: POLYETHYLENE GLYCOL 17 GM/PKT PO SCH ×2 (08:29→21:00)
[2020-03-14] MEDS: methylPREDNISolone SS 40 MG/ML VIAL IVP SCH ×2 (08:29→21:00)
[2020-03-14] MEDS: ENOXAPARIN 100 MG/ML SYR SUBQ SCH ×2 (08:30→21:00)
--- NOTE | 2020-03-14 13:56 | NUR ---
BEDSIDE ADJUSTED VENT SETTINGS A/C VC+ 22, VT 350, Ti 0.70, PEEP 8 AND FIO2 90%. WILL CONTINUE TO MONITOR.
--- NOTE | 2020-03-14 14:12 | NUR ---
BEDSIDE ASSESSING PT AUDIBLE LEAK HEARD AROUND CUFF. AIR ADDED TO CUFF POST INSERTION OF ETT TO 23cm TEETH/GUM CXR FOR TUBE PLACEMENT ORDERED.
--- NOTE | 2020-03-14 14:21 | NUR ---
CXR REVIEWED BY MYSELF AND ETT PLACEMENT IN ADEQUATE POSITION.
[2020-03-14] MEDS: PROPOFOL 1000 MG/100 ML PREMIX 100 ML IV PRN ×2 (15:01→19:23)
[2020-03-14] MEDS: NACL 0.9% 1,000 ML IV SCH (16:22)
[2020-03-14] MEDS: INSULIN LISPRO SLIDING SCALE 100 UNITS/ML VIAL SUBQ PRN ×2 (16:36→22:05)
--- NOTE | 2020-03-14 16:55 | NUR ---
03/14/20 RD FOLLOW UP COMPLETED PLEASE REFER TO NUTRITION ASSESSMENT UNDER CARE ACTIVITY FOR ESTIMATED NUTRITIONAL NEEDS. 1. CONTINUE WHEN MEDICALLY APPROPRIATE JEVITY 1.2 @ 80 ML/HR X 8 HOURS WITH PROSOURCE BID -THIS WILL PROVIDE 888 KCAL AND 65 GM OF PROTEIN, MEETING 86% OF ESTIMATED KCAL NEEDS AND 90% OF PROTEIN NEEDS. 2. RECOMMEND CONTINUE FLUSH OF [address] TO FOLLOW-UP 2-3 DAYS, HIGH RISK LUIS ALFREDO SHIN, YELITZA
[2020-03-14] MEDS ORDERED: KCL 20 MEQ/WATER INJ PREMIX 200 ML IV SCH (18:00)
--- NOTE | 2020-03-14 20:50 | NUR ---
POST CHARTING APPROX 20:50 PT WAS RE-INTUBATED DUE TO CUFF RUPTURE CONDENSATION PRESENT ALONG WITH COLOR CHANGE (EZ-CAP) AND BILAT BREATH SOUNDS 7.5 ETT SECURED @ 24CM PENDING CXR FOR PLACEMENT
[2020-03-14] MEDS: fentaNYL citrate - 50mL vial 2.5 MG in NACL 0.9% 200 ML IV PRN (22:13)
[2020-03-15] VITALS (25 sets, daily range): BP systolic 92–138; BP diastolic 45–74
[2020-03-15] MEDS: Z-GUARD PASTE TP SCH ×2 (01:16→12:26)
[2020-03-15] MEDS: PROPOFOL 1000 MG/100 ML PREMIX 100 ML IV PRN ×2 (06:00→21:12)
[2020-03-15] MEDS: MIDAZOLAM MDV 100 MG in NACL 0.9% 80 ML IV PRN ×2 (06:00→15:28)
[2020-03-15] MEDS: PIPERACILLIN/TAZOBACTAM 3.375 GM in DEXTROSE 5% 50 ML IV SCH ×5 (06:00→19:00)
[2020-03-15] MEDS: BLOOD GLUCOSE MONITORING 1 DEV DEV FS SCH ×4 (07:02→20:47)
[2020-03-15] MEDS: ENOXAPARIN 100 MG/ML SYR SUBQ SCH (09:00)
[2020-03-15] MEDS: methylPREDNISolone SS 40 MG/ML VIAL IVP SCH (09:04)
[2020-03-15] MEDS: PANTOPRAZOLE 40 MG INJ VIAL IVP SCH (09:04)
[2020-03-15] MEDS: POLYETHYLENE GLYCOL 17 GM/PKT PO SCH ×2 (09:06→20:34)
--- NOTE | 2020-03-15 09:20 | NUR ---
BEDSIDE REPORT RECEIVED FROM GENERAL PRODUCTION LABORER NURSE AT 0720, PT IN PRONE POSITION, INTUBATED AND SEDATED, RASS -3 WITH PROPOFOL AT 25, FENTANYL 1.5, VERSED 9, ETT TO VENT PC FIO2 80%, PEEP 8, RR 22, RESP EVEN UNLABORED, GOOD RISE AND FALL OF HER BACK, SKIN WARM DRY COLOR WNL, CARMEN IN PLACE, DRIANING YELLOW GREEN TINGED URINE, AM MEDS GIVEN, PT ARTEMIO WELL, ORAL CARE LIMITED WHILE PRONE, CARMEN CARE DONE, CHG WIPE DONE, ALL SAFETY MEASURES IN PLACE, POC REVIEWED,
[2020-03-15 11:17] LABS: EOSINOPHILS # (AUTO) 0.4 K/uL (0-0.4); EOSINOPHILS % (AUTO) 2.2 % (0.0-4.0); HEMATOCRIT 24.9 % (36-48); LYMPHOCYTES # (AUTO) 0.5 K/uL (2.5-16.5); LYMPHOCYTES % (AUTO) 3.1 % (20.5-51.1); MEAN CORPUSCULAR HEMOGLOBIN 29 pg (27-31); MEAN CORPUSCULAR HGB CONC 32 g/dL (33-37); MEAN CORPUSCULAR VOLUME 89.3 fL (80-94); MONOCYTES # (AUTO) 0.2 K/uL (0.8-1.0); MONOCYTES % (AUTO) 1.5 % (1.7-9.3); NEUTROPHILS # (AUTO) 15.6 K/uL (1.8-7.7); NEUTROPHILS % (AUTO) 93.2 % (42.2-75.2); PLATELET COUNT (AUTO) 196 K/uL (140-450); RED BLOOD CELL COUNT(AUTO) 2.79 MIL/uL (4.20-5.40); RED CELL DISTRIBUTION WIDTH 15.3 % (11.6-13.7); WHITE BLOOD COUNT (AUTO) 16.7 K/uL (4.8-10.8)
[2020-03-15 11:53] LABS: ALBUMIN 1.7 g/dL (3.4-5.0); ANION GAP 8.6 (8-16); CARBON DIOXIDE 30.7 mmol/L (21-32); CREATININE 0.6 mg/dL (0.6-1.3); POTASSIUM 4.3 mmol/L (3.5-5.1); TOTAL BILIRUBIN 0.4 mg/dL (0.0-1.0)
[2020-03-15] MEDS: fentaNYL citrate - 50mL vial 2.5 MG in NACL 0.9% 200 ML IV PRN (12:26)
--- NOTE | 2020-03-15 14:18 | NUR ---
BLOOD GLUCOSE 86, NO COVERAGE NEEDED.
[2020-03-15] MEDS: NACL 0.9% 1,000 ML IV SCH (15:50)
--- NOTE | 2020-03-15 17:00 | NUR ---
PROSOURCE GIVEN, CARMEN EMPTIED 450ML,
--- NOTE | 2020-03-15 19:30 | NUR ---
REPORT RECEIVED FROM DAY SHIFT NURSE. PT IN BED, ON PRONE POSITION. PT SEDATED RASS -3 WITH PROPOFOL AT 25, FENTANYL 1.5, VERSED 9. PT ON ETT TO VENT PC FIO2 80%, PEEP 8, RR 22. PT NOT IN DISTRESS. SKIN WARM AND DRY. PT WITH CARMEN CATHETER IN PLACE, DRAINING WELL. PT WITH RIGHT UPPER PICC LINE IN PLACE, PATENT AND INTACT. PT KEPT COMFORTABLE. NO S/SX OF PAIN OR DISCOMFORT NOTED. FLACC 0. WILL CONTINUE TO MONITOR.
[2020-03-15] MEDS: ENOXAPARIN 40 MG/0.4 ML SYR SUBQ SCH (20:34)
--- NOTE | 2020-03-15 20:47 | NUR ---
VS STABLE. SCHEDULED MEDS GIVEN ORDERED. BLOOD SUGAR 86. NO INSULIN COVERAGE NEEDED. SAFETY MEASURES IN PLACE. WILL CONTINUE TO MONITOR.
--- NOTE | 2020-03-15 22:21 | NUR ---
ET TUBE SUCTIONED. SCANT AMOUNT OF SECRETIONS OBTAINED. PT STILL IN PRONE POSITION, NO S/SX OF RESPIRATORY DISTRESS NOTED. SAFETY MEASURES IN PLACE. WILL CONTINUE TO MONITOR.
--- NOTE | 2020-03-15 23:11 | NUR ---
PT PLACED BACK IN SUPINE POSITION. PT SUCTIONED, ORAL CARE GIVEN. OGT FEEDING HOOKED BACK. NO RESIDUALS OBTAINED. PT POSITIONED COMFORTABLY IN BED. SAFETY MEASURES IN PLACE. WILL CONTINUE TO MONITOR.
[2020-03-16] VITALS (42 sets, daily range): BP systolic 106–142; BP diastolic 53–75
[2020-03-16] MEDS: PIPERACILLIN/TAZOBACTAM 3.375 GM in DEXTROSE 5% 50 ML IV SCH ×4 (00:07→17:06)
[2020-03-16] MEDS: Z-GUARD PASTE TP SCH ×2 (00:08→13:57)
--- NOTE | 2020-03-16 01:20 | NUR ---
RECEIVED REPORT, PT ETT TO VENT, AC VC FI02 100%, TV 350 RATE 22 PEEP 8. PT CURRENTLY IN PRONE POSITION. SKIN WARM AND DRY, AFEBRILE, 98.1, AXILLARY . LEROY PICC IN PLACE, INFUSING NS @ 20ML/HR, PROPOFOL 25 MCG/KG/MIN, VERSED 9MG/HR, AND FENTANYL 1.5 MCG/KG/HR. DRY WEIGHT 92 KG, RASS -3. PT WITHDRAWS TO DEEP PAIN. PERRL. OGT IN PLACE, FEEDING OFF AT THIS TIME. CARMEN CATHETER IN PLACE, NEELA URINE DRAINING BY GRAVITY. RECTAL TUBE IN PLACE, SMALL SKIN TEAR AT RECTAL GROOVE, OPTIFOAM DRESSING IN PLACE. NO SIGNS OF DISTRESS, REVERSE [place], FLACC 0. BED LOCKED AND IN LOWEST POSITION. DROPLET PRECAUTIONS IN PLACE, WILL CONTINUE TO MONITOR. Addendum: 03/17/20 at 0205 by Samra Bonilla RN TYPO, WRONG TIME ENTRY, CORRECT DATE AND TIME 03/16/202019
--- NOTE | 2020-03-16 02:13 | NUR ---
ORAL SUCTIONING DONE. CHG BATH, CATHETER CARE, SKIN CARE PROVIDED. PT TURNED TO SIDE. PT TOLERATED ALL CARE GIVEN. SAFETY MEASURES IN PLACE. WILL CONTINUE TO MONITOR.
[2020-03-16] MEDS: MIDAZOLAM MDV 100 MG in NACL 0.9% 80 ML IV PRN ×2 (02:25→15:10)
--- NOTE | 2020-03-16 04:18 | NUR ---
VS STABLE. PT TURNED TO SIDE. ORAL CARE DONE. PT TOLERATED WELL. SAFETY MEASURES IN PLACE. WILL CONTINUE TO MONITOR.
[2020-03-16] MEDS: PROPOFOL 1000 MG/100 ML PREMIX 100 ML IV PRN ×2 (05:48→21:27)
[2020-03-16 06:19] LABS: BASOPHILS % (AUTO) 0.2 % (0.0-2.0); EOSINOPHILS # (AUTO) 0.3 K/uL (0-0.4); EOSINOPHILS % (AUTO) 2.1 % (0.0-4.0); HEMATOCRIT 25.1 % (36-48); LYMPHOCYTES # (AUTO) 0.6 K/uL (2.5-16.5); LYMPHOCYTES % (AUTO) 4.9 % (20.5-51.1); MEAN CORPUSCULAR HEMOGLOBIN 29 pg (27-31); MEAN CORPUSCULAR HGB CONC 32 g/dL (33-37); MEAN CORPUSCULAR VOLUME 90.7 fL (80-94); MONOCYTES # (AUTO) 0.4 K/uL (0.8-1.0); MONOCYTES % (AUTO) 2.9 % (1.7-9.3); NEUTROPHILS # (AUTO) 11.9 K/uL (1.8-7.7); NEUTROPHILS % (AUTO) 89.9 % (42.2-75.2); PLATELET COUNT (AUTO) 238 K/uL (140-450); RED BLOOD CELL COUNT(AUTO) 2.77 MIL/uL (4.20-5.40); RED CELL DISTRIBUTION WIDTH 15.5 % (11.6-13.7); WHITE BLOOD COUNT (AUTO) 13.2 K/uL (4.8-10.8)
[2020-03-16 06:34] LABS: ANION GAP 8.4 (8-16); CARBON DIOXIDE 32.5 mmol/L (21-32); CREATININE 0.6 mg/dL (0.6-1.3); POTASSIUM 3.9 mmol/L (3.5-5.1)
[2020-03-16] MEDS: BLOOD GLUCOSE MONITORING 1 DEV DEV FS SCH ×4 (06:59→21:24)
[2020-03-16] MEDS: INSULIN LISPRO SLIDING SCALE 100 UNITS/ML VIAL SUBQ PRN (07:00)
--- NOTE | 2020-03-16 07:15 | NUR ---
RECEIVED REPORT FORM LITIGATION COUNSEL NURSE FOR CONTINUITY OF CARE. PT IN BED, SUPINE POSITION. RASS-3, FLACC 0, NO SOB, NO APPARENT DISTRESS. ETT TO VENT: AC/VC FIO2 100% R 22 PEEP 8 r 20 tv 350. ABD SOFT, NON-DISTENDED, NON-TENDER. WITH LEROY PICC, RUNNING PROPOFOL 25MCG, VERSED 9MG, FENTANYL 1.5MCG/KG/HR. CARMEN AND RECTAL TUBE INTACT AND PATENT. NGT TO TUBE FEEDING. SAFETY PRECAUTIONS IN PLACE. WILL CONT TO MONITOR.
--- NOTE | 2020-03-16 07:47 | NUR ---
ENDORSED TO DAY SHIFT NURSE FOR CONTINUITY OF CARE
[2020-03-16] MEDS: fentaNYL citrate - 50mL vial 2.5 MG in NACL 0.9% 200 ML IV PRN (08:30)
[2020-03-16] MEDS: POLYETHYLENE GLYCOL 17 GM/PKT PO SCH ×2 (09:00→21:00)
[2020-03-16] MEDS: ENOXAPARIN 40 MG/0.4 ML SYR SUBQ SCH ×2 (09:00→21:07)
[2020-03-16] MEDS: PANTOPRAZOLE 40 MG INJ VIAL IVP SCH (09:00)
[2020-03-16] MEDS: methylPREDNISolone SS 40 MG/ML VIAL IVP SCH (09:00)
--- NOTE | 2020-03-16 09:30 | NUR ---
DUE MORNING MEDS GIVEN ORDERED. TOLERATED WELL
--- NOTE | 2020-03-16 12:12 | NUR ---
CHECKED BLOOD GLUCOSE 139, NO COVERAGE NEEDED, ADMINISTERED SCHEDULED ZOSYN.
--- NOTE | 2020-03-16 12:30 | NUR ---
PT TURNED TO PRONE POSITION WITH NO ISSUES. ETT SECURED AND PATENT.
--- NOTE | 2020-03-16 13:00 | NUR ---
ON PRONE POSITION. TOLERATING POSITION
[2020-03-16] MEDS: NACL 0.9% 1,000 ML IV SCH (15:45)
--- NOTE | 2020-03-16 16:45 | NUR ---
BLOOD SUGAR 147. NO COVERAGE
--- NOTE | 2020-03-16 19:36 | NUR ---
RECEIVED PATIENT FROM AM SHIFT. PATIENT WAS SEEN AND ASSESSED. FOUND PATIENT IN PRONE POSITIONED. PATIENT IS INTUBATED WITH ETT SIZE 7.5 AND SECURED WITH ANCHOR-FAST AT 24 cm. PATIENT IS ON VENT SETTINGS: AC/VC RR 22, VT 350, PEEP 8, FiO2 100% WITH SPO2 OF 99%. AMBU BAG AT BEDSIDE. VENT IS PLUGGED IN RED OUTLET. ALARMS SET AND AUDIBLE TO ENVIRONMENT. SUCTIONED SMALL AMOUNT OF YELLOW THICK SECRETIONS FROM ETT. AIRWAY IS PATENT. AUSCULTATION REVEALS BILATERAL COARSE BREATH SOUNDS ON BOTH UPPER AND LOWER LOBES. PATIENT IS IN NO APPARENT RESPIRATORY DISTRESS AT THIS TIME. WILL CONTINUE TO MONITOR PATIENT.
--- NOTE | 2020-03-16 20:20 | NUR ---
RECEIVED REPORT, PT ETT TO VENT, AC VC FI02 100%, TV 350 RATE 22 PEEP 8. PT CURRENTLY IN PRONE POSITION. SKIN WARM AND DRY, AFEBRILE, 98.1, AXILLARY . LEROY PICC IN PLACE, INFUSING NS @ 20ML/HR, PROPOFOL 25 MCG/KG/MIN, VERSED 9MG/HR, AND FENTANYL 1.5 MCG/KG/HR. DRY WEIGHT 92 KG, RASS -3. PT WITHDRAWS TO DEEP PAIN. PERRL. OGT IN PLACE, FEEDING OFF AT THIS TIME. CARMEN CATHETER IN PLACE, NEELA URINE DRAINING BY GRAVITY. RECTAL TUBE IN PLACE, SMALL SKIN TEAR AT RECTAL GROOVE, OPTIFOAM DRESSING IN PLACE. NO SIGNS OF DISTRESS, REVERSE [place], FLACC 0. BED LOCKED AND IN LOWEST POSITION. DROPLET PRECAUTIONS IN PLACE, WILL CONTINUE TO MONITOR.
--- NOTE | 2020-03-16 23:50 | NUR ---
PT CONNECTED TO TELE MONITOR ABLE TO PRINT EKG STRIPS. NO SIGNS OF DISTRESS.
[2020-03-17] VITALS (25 sets, daily range): BP systolic 96–142; BP diastolic 50–74
--- NOTE | 2020-03-17 00:30 | NUR ---
NO SIGNS OF DISTRESS, VISIBLE RISE AND FALL. TEMP WITHIN RANGE. ALL VSS. SAFETY MEASURES IN PLACE, SUCTIONED AND PROVIDED ORAL CARE, PT WITHDRAWS TO SUCTIONING. WILL CONTINUE TO MONITOR.
[2020-03-17] MEDS: PIPERACILLIN/TAZOBACTAM 3.375 GM in DEXTROSE 5% 50 ML IV SCH ×4 (00:50→17:28)
[2020-03-17] MEDS: Z-GUARD PASTE TP SCH ×2 (01:00→13:04)
[2020-03-17] MEDS: fentaNYL citrate - 50mL vial 2.5 MG in NACL 0.9% 200 ML IV PRN (04:33)
[2020-03-17] MEDS: MIDAZOLAM MDV 100 MG in NACL 0.9% 80 ML IV PRN ×2 (04:34→15:20)
--- NOTE | 2020-03-17 05:30 | NUR ---
PT SUCCESSFULLY TURNED SUPINE, ETT INTACT, NO ADVERSE INCIDENT. LEROY PICC IN PLACE, RASS -3, FLACC 0. PROVIDED SPONGE BATH AND ORAL CARE. CARMEN INTACT. HOB 30 DEGREES, SIDE RAILS UP, BED LOCKED AND IN LOWEST POSITION. WILL CONTINUE TO MONITOR.
[2020-03-17 05:33] LABS: BASOPHILS % (AUTO) 0.4 % (0.0-2.0); EOSINOPHILS # (AUTO) 0.2 K/uL (0-0.4); EOSINOPHILS % (AUTO) 1.5 % (0.0-4.0); HEMATOCRIT 23.2 % (36-48); HEMOGLOBIN 7.5 g/dL (12.0-16.0); LYMPHOCYTES # (AUTO) 0.8 K/uL (2.5-16.5); LYMPHOCYTES % (AUTO) 8.5 % (20.5-51.1); MEAN CORPUSCULAR HEMOGLOBIN 30 pg (27-31); MEAN CORPUSCULAR HGB CONC 33 g/dL (33-37); MEAN CORPUSCULAR VOLUME 91.5 fL (80-94); MONOCYTES # (AUTO) 0.4 K/uL (0.8-1.0); MONOCYTES % (AUTO) 3.9 % (1.7-9.3); NEUTROPHILS # (AUTO) 8.5 K/uL (1.8-7.7); NEUTROPHILS % (AUTO) 85.7 % (42.2-75.2); PLATELET COUNT (AUTO) 260 K/uL (140-450); RED BLOOD CELL COUNT(AUTO) 2.54 MIL/uL (4.20-5.40); RED CELL DISTRIBUTION WIDTH 15.9 % (11.6-13.7); WHITE BLOOD COUNT (AUTO) 9.9 K/uL (4.8-10.8)
[2020-03-17 05:55] LABS: ANION GAP 5.4 (8-16); CREATININE 0.6 mg/dL (0.6-1.3); POTASSIUM 4.4 mmol/L (3.5-5.1)
[2020-03-17] MEDS: BLOOD GLUCOSE MONITORING 1 DEV DEV FS SCH ×3 (07:30→15:56)
--- NOTE | 2020-03-17 08:40 | NUR ---
RECEIVED REPORT FORM PAYROLL ACCOUNTANT NURSE FOR CONTINUITY OF CARE. PT IN BED, SUPINE POSITION. RASS-3, FLACC 0, NO SOB, NO APPARENT DISTRESS. ETT TO VENT: AC/VC FIO2 100% R 22 PEEP 8 r 20 tv 350. ABD SOFT, NON-DISTENDED, NON-TENDER. WITH LEROY PICC, RUNNING PROPOFOL 25MCG, VERSED 9MG, FENTANYL 1.5MCG/KG/HR. CARMEN AND RECTAL TUBE INTACT AND PATENT. NGT TO TUBE FEEDING. SAFETY PRECAUTIONS IN PLACE. WILL CONT TO MONITOR.
[2020-03-17] MEDS: ENOXAPARIN 40 MG/0.4 ML SYR SUBQ SCH ×2 (09:00→22:19)
[2020-03-17] MEDS: methylPREDNISolone SS 40 MG/ML VIAL IVP SCH (09:00)
[2020-03-17] MEDS: POLYETHYLENE GLYCOL 17 GM/PKT PO SCH ×2 (09:00→21:00)
[2020-03-17] MEDS: PANTOPRAZOLE 40 MG INJ VIAL IVP SCH (09:00)
--- NOTE | 2020-03-17 11:13 | NUR ---
03/17/20 RD FOLLOW UP COMPLETED PLEASE REFER TO NUTRITION ASSESSMENT UNDER CARE ACTIVITY FOR ESTIMATED NUTRITIONAL NEEDS. 1. CONTINUE WHEN MEDICALLY APPROPRIATE JEVITY 1.2 @ 80 ML/HR X 8 HOURS WITH PROSOURCE BID -THIS WILL PROVIDE 888 KCAL AND 65 GM OF PROTEIN, MEETING 86% OF ESTIMATED KCAL NEEDS AND 90% OF PROTEIN NEEDS. 2. RECOMMEND CONTINUE FLUSH OF [address] TO FOLLOW-UP 2-3 DAYS, HIGH RISK STEVEN BOLTON RD
[2020-03-17] MEDS: PROPOFOL 1000 MG/100 ML PREMIX 100 ML IV PRN ×2 (13:04→19:52)
--- NOTE | 2020-03-17 15:30 | NUR ---
PLACED ON PRONE POSITION
--- NOTE | 2020-03-17 15:32 | NUR ---
PT PLACED INTO PRONE POSITION. ETT SECURE WITH A PATENT AIRWAY.
[2020-03-17] MEDS: NACL 0.9% 1,000 ML IV SCH (15:56)
--- NOTE | 2020-03-17 19:17 | NUR ---
RECEIVED PATIENT FROM AM SHIFT. PATIENT WAS SEEN AND ASSESSED. FOUND PATIENT IN PRONE POSITIONED. PATIENT IS INTUBATED WITH ETT SIZE 7.5 AND SECURED WITH ANCHOR-FAST AT 24 cm. PATIENT IS ON VENT SETTINGS: AC/VC+ RR 22, VT 350, PEEP 8, FiO2 100% WITH SPO2 OF 99%. AMBU BAG AT BEDSIDE. VENT IS PLUGGED IN RED OUTLET. ALARMS SET AND AUDIBLE TO ENVIRONMENT. SUCTIONED SMALL AMOUNT OF YELLOW THICK SECRETIONS FROM ETT. AIRWAY IS PATENT. AUSCULTATION REVEALS BILATERAL COARSE BREATH SOUNDS ON BOTH UPPER AND LOWER LOBES. PATIENT IS IN NO APPARENT RESPIRATORY DISTRESS AT THIS TIME. WILL CONTINUE TO MONITOR PATIENT.
[2020-03-18] VITALS (24 sets, daily range): BP systolic 104–166; BP diastolic 62–83
[2020-03-18] MEDS: PIPERACILLIN/TAZOBACTAM 3.375 GM in DEXTROSE 5% 50 ML IV SCH ×4 (00:41→17:40)
[2020-03-18] MEDS: Z-GUARD PASTE TP SCH ×2 (00:42→13:19)
[2020-03-18] MEDS: PROPOFOL 1000 MG/100 ML PREMIX 100 ML IV PRN ×3 (04:24→20:45)
[2020-03-18] MEDS: fentaNYL citrate - 50mL vial 2.5 MG in NACL 0.9% 200 ML IV PRN (04:28)
[2020-03-18] MEDS: MIDAZOLAM MDV 100 MG in NACL 0.9% 80 ML IV PRN ×2 (04:30→17:40)
[2020-03-18 06:22] LABS: BASOPHILS % (AUTO) 0.3 % (0.0-2.0); EOSINOPHILS % (AUTO) 0.3 % (0.0-4.0); HEMATOCRIT 22.2 % (36-48); HEMOGLOBIN 7.1 g/dL (12.0-16.0); LYMPHOCYTES # (AUTO) 0.6 K/uL (2.5-16.5); LYMPHOCYTES % (AUTO) 6.8 % (20.5-51.1); MEAN CORPUSCULAR HEMOGLOBIN 30 pg (27-31); MEAN CORPUSCULAR HGB CONC 32 g/dL (33-37); MEAN CORPUSCULAR VOLUME 91.5 fL (80-94); MONOCYTES # (AUTO) 0.4 K/uL (0.8-1.0); MONOCYTES % (AUTO) 4.3 % (1.7-9.3); NEUTROPHILS # (AUTO) 7.4 K/uL (1.8-7.7); NEUTROPHILS % (AUTO) 88.3 % (42.2-75.2); PLATELET COUNT (AUTO) 232 K/uL (140-450); RED BLOOD CELL COUNT(AUTO) 2.43 MIL/uL (4.20-5.40); RED CELL DISTRIBUTION WIDTH 16.1 % (11.6-13.7); WHITE BLOOD COUNT (AUTO) 8.4 K/uL (4.8-10.8)
[2020-03-18] MEDS: BLOOD GLUCOSE MONITORING 1 DEV DEV FS SCH ×5 (07:22→21:00)
[2020-03-18 07:50] LABS: ANION GAP 7.9 (8-16); CARBON DIOXIDE 33.9 mmol/L (21-32); CREATININE 0.5 mg/dL (0.6-1.3); POTASSIUM 4.8 mmol/L (3.5-5.1)
[2020-03-18] MEDS ORDERED: ROCURONIUM 50 MG/5 ML VIAL IV PRN (09:20)
[2020-03-18] MEDS: methylPREDNISolone SS 40 MG/ML VIAL IVP SCH (09:26)
[2020-03-18] MEDS: PANTOPRAZOLE 40 MG INJ VIAL IVP SCH (09:26)
[2020-03-18] MEDS: POLYETHYLENE GLYCOL 17 GM/PKT PO SCH ×2 (09:27→21:00)
[2020-03-18] MEDS: ENOXAPARIN 40 MG/0.4 ML SYR SUBQ SCH ×2 (09:27→21:00)
--- NOTE | 2020-03-18 09:28 | NUR ---
SCHEDULED MEDICATIONS DUE GIVEN. WILL CONTINUE TO MONITOR.
[2020-03-18] MEDS ORDERED: ALBUTEROL SULFATE/IPRATROPIU 3 ML SOL IH PRN (13:25)
--- NOTE | 2020-03-18 13:50 | NUR ---
PT PLACED INTO SUPINE POSITION, ETT IS SECURE WITH A PATENT AIRWAY. WILL CONTINUE TO MONITOR.
--- NOTE | 2020-03-18 15:09 | NUR ---
FIO2 INCREASED TO 100% DUE TO LOW SPO2, VENT ALARMS ON AND FUNCTIONING. ETT IS SECURE WITH A PATENT AIRWAY.
[2020-03-18] MEDS: NACL 0.9% 1,000 ML IV SCH (16:01)
[2020-03-18] MEDS: ALBUTEROL SULFATE/IPRATROPIU 3 ML SOL IH SCH (19:00)
--- NOTE | 2020-03-18 19:50 | NUR ---
GAVE REPORT TO FARMWORKER VEGETABLE NURSE FOR CONTINUITY OF CARE. PATIENT IN STABLE CONDITION.
[2020-03-19] VITALS (24 sets, daily range): BP systolic 87–158; BP diastolic 36–141
[2020-03-19] MEDS: ALBUTEROL SULFATE/IPRATROPIU 3 ML SOL IH SCH ×4 (01:00→19:00)
[2020-03-19] MEDS: Z-GUARD PASTE TP SCH ×2 (01:00→12:03)
[2020-03-19] MEDS: fentaNYL citrate - 50mL vial 2.5 MG in NACL 0.9% 200 ML IV PRN ×2 (01:45→16:27)
[2020-03-19 06:19] LABS: HEMATOCRIT 25.4 % (36-48); HEMOGLOBIN 7.7 g/dL (12.0-16.0); MEAN CORPUSCULAR HEMOGLOBIN 29 pg (27-31); MEAN CORPUSCULAR HGB CONC 31 g/dL (33-37); MEAN CORPUSCULAR VOLUME 94.5 fL (80-94); PLATELET COUNT (AUTO) 382 K/uL (140-450); RED BLOOD CELL COUNT(AUTO) 2.69 MIL/uL (4.20-5.40); WHITE BLOOD COUNT (AUTO) 19.2 K/uL (4.8-10.8)
[2020-03-19 06:43] LABS: ANION GAP 6.8 (8-16); CREATININE 0.8 mg/dL (0.6-1.3); POTASSIUM 4.8 mmol/L (3.5-5.1)
[2020-03-19] MEDS: MIDAZOLAM MDV 100 MG in NACL 0.9% 80 ML IV PRN ×2 (06:53→16:27)
[2020-03-19] MEDS: PIPERACILLIN/TAZOBACTAM 3.375 GM in DEXTROSE 5% 50 ML IV SCH ×6 (06:53→23:10)
[2020-03-19] MEDS: PROPOFOL 1000 MG/100 ML PREMIX 100 ML IV PRN ×2 (06:53→12:12)
[2020-03-19] MEDS: BLOOD GLUCOSE MONITORING 1 DEV DEV FS SCH ×4 (06:53→20:55)
[2020-03-19] MEDS: INSULIN LISPRO SLIDING SCALE 100 UNITS/ML VIAL SUBQ PRN (06:54)
--- NOTE | 2020-03-19 07:45 | NUR ---
RECEIVED REPORT FROM VP CUSTOMER DEVELOPMENT NURSE. PATIENT IN CRITICAL CONDITION. WILL CONTINUE TO MONITOR.
[2020-03-19] MEDS: methylPREDNISolone SS 40 MG/ML VIAL IVP SCH (08:23)
[2020-03-19] MEDS: ENOXAPARIN 40 MG/0.4 ML SYR SUBQ SCH ×2 (08:23→21:00)
[2020-03-19] MEDS: PANTOPRAZOLE 40 MG INJ VIAL IVP SCH (08:23)
[2020-03-19] MEDS: POLYETHYLENE GLYCOL 17 GM/PKT PO SCH ×2 (08:23→21:00)
--- NOTE | 2020-03-19 08:23 | NUR ---
SCHEDULED MEDICATIONS DUE GIVEN. WILL CONTINUE TO MONITOR.
--- NOTE | 2020-03-19 12:03 | NUR ---
SCHEDULED MEDICATIONS DUE GIVEN. WILL CONTINUE TO MONITOR.
[2020-03-19 13:31] LABS: BASOPHILS % (MANUAL) 1 % (0-2); LYMPHOCYTES % (MANUAL) 4 % (20-46); MONOCYTES % (MANUAL) 5 % (5-12)
--- NOTE | 2020-03-19 14:27 | NUR ---
at bedside made changes to vent ac22 [id number] peep 10 fio2 60%
[2020-03-19] MEDS: NACL 0.9% 1,000 ML IV SCH (16:05)
--- NOTE | 2020-03-19 17:14 | NUR ---
SCHEDULED MEDICATIONS DUE GIVEN. WILL CONTINUE TO MONITOR.
--- NOTE | 2020-03-19 19:35 | NUR ---
GAVE REPORT TO SHADE CLASSIFIER NURSE FOR CONTINUITY OF CARE. PATIENT IN CRITICAL CONDITION.
--- NOTE | 2020-03-19 20:15 | NUR ---
ASSISTED RN IN TURNING PT BACK TO SUPINE POSITION
[2020-03-19] MEDS ORDERED: NOREPINEPHRINE 8 MG in DEXTROSE 5% 250 ML IV PRN (23:25)
[2020-03-20] VITALS (21 sets, daily range): BP systolic 72–123; BP diastolic 32–66
[2020-03-20] MEDS: Z-GUARD PASTE TP SCH ×2 (00:55→13:20)
[2020-03-20] MEDS: ALBUTEROL SULFATE/IPRATROPIU 3 ML SOL IH SCH ×3 (01:00→13:00)
[2020-03-20] MEDS: PIPERACILLIN/TAZOBACTAM 3.375 GM in DEXTROSE 5% 50 ML IV SCH ×3 (06:00→16:51)
[2020-03-20 06:13] LABS: BASOPHILS % (AUTO) 0.2 % (0.0-2.0); EOSINOPHILS % (AUTO) 0.2 % (0.0-4.0); LYMPHOCYTES # (AUTO) 0.7 K/uL (2.5-16.5); LYMPHOCYTES % (AUTO) 3.7 % (20.5-51.1); MEAN CORPUSCULAR HEMOGLOBIN 29 pg (27-31); MEAN CORPUSCULAR HGB CONC 31 g/dL (33-37); MEAN CORPUSCULAR VOLUME 94.8 fL (80-94); MONOCYTES # (AUTO) 0.5 K/uL (0.8-1.0); MONOCYTES % (AUTO) 2.9 % (1.7-9.3); PLATELET COUNT (AUTO) 405 K/uL (140-450); RED BLOOD CELL COUNT(AUTO) 2.75 MIL/uL (4.20-5.40); RED CELL DISTRIBUTION WIDTH 17.3 % (11.6-13.7); WHITE BLOOD COUNT (AUTO) 18.3 K/uL (4.8-10.8)
[2020-03-20 06:34] LABS: ANION GAP 10.6 (8-16); CREATININE 1.7 mg/dL (0.6-1.3); POTASSIUM 5.6 mmol/L (3.5-5.1)
[2020-03-20] MEDS: BLOOD GLUCOSE MONITORING 1 DEV DEV FS SCH ×4 (07:01→21:14)
[2020-03-20] MEDS: INSULIN LISPRO SLIDING SCALE 100 UNITS/ML VIAL SUBQ PRN (07:02)
[2020-03-20] MEDS: MIDAZOLAM MDV 100 MG in NACL 0.9% 80 ML IV PRN (08:12)
[2020-03-20] MEDS: PANTOPRAZOLE 40 MG INJ VIAL IVP SCH (09:00)
[2020-03-20] MEDS: methylPREDNISolone SS 40 MG/ML VIAL IVP SCH (09:33)
[2020-03-20] MEDS: ENOXAPARIN 40 MG/0.4 ML SYR SUBQ SCH (09:34)
[2020-03-20] MEDS: POLYETHYLENE GLYCOL 17 GM/PKT PO SCH ×2 (09:34→21:14)
--- NOTE | 2020-03-20 09:39 | NUR ---
SCHEDULED MEDICATIONS DUE GIVEN. WILL CONTINUE TO MONITOR.
[2020-03-20] MEDS ORDERED: SODIUM ZIRCONIUM CYCLOSILICATE 10 GM POWD.PACK PO SCH (11:30)
[2020-03-20] MEDS: fentaNYL citrate - 50mL vial 2.5 MG in NACL 0.9% 200 ML IV PRN (12:23)
[2020-03-20] MEDS: NACL 0.9% 1,000 ML IV SCH (15:54)
--- NOTE | 2020-03-20 15:54 | NUR ---
03/20/20 RD FOLLOW UP COMPLETED. PLEASE REFER TO NUTRITION ASSESSMENT UNDER CARE ACTIVITY FOR ESTIMATED NUTRITIONAL NEEDS. 1. CONTINUE WHEN MEDICALLY APPROPRIATE JEVITY 1.2 @ 80 ML/HR X 8 HOURSWITH PROSOURCE BID. THIS WILL PROVIDE 888 KCAL AND 65 GM OF PROTEIN, MEETING 86% OF ESTIMATEDKCAL NEEDS AND 90% OF PROTEIN NEEDS. 2. RECOMMEND CONTINUE FLUSH OF [address] TO FOLLOW-UP 2-3 DAYS, HIGH RISK LUIS ALFREDO SHIN RD
[2020-03-20] MEDS ORDERED: BUMETANIDE 1 MG/4 ML VIAL IV ONE (16:55)
--- NOTE | 2020-03-20 17:35 | NUR ---
SCHEDULED MEDICATIONS DUE GIVEN. WILL CONTINUE TO MONITOR.
--- NOTE | 2020-03-20 22:19 | NUR ---
CODE BLUE INITIATED, PT @ 2219, SEE CODE SHEET FOR DETAILS.
== END 2020-03-20 22:19 | DRG 207 ==
LOC: MED 11:28 → MTU 14:44 → MMU 02-25 13:39
PROC: XW033E5 Introduction of Remdesivir Anti-infective into Peripheral Vein, Percutaneous Approach, New Technology Group 5 (ICD-10-PCS; 2020-02-18)
PROC: XW13325 Transfusion of Convalescent Plasma (Nonautologous) into Peripheral Vein, Percutaneous Approach, New Technology Group 5 (ICD-10-PCS; 2020-02-23)
PROC: 5A1955Z Respiratory Ventilation, Greater than 96 Consecutive Hours (ICD-10-PCS; principal; 2020-02-25)
PROC: 02HV33Z Insertion of Infusion Device into Superior Vena Cava, Percutaneous Approach (ICD-10-PCS; 2020-02-25)
PROC: 5A09357 Assistance with Respiratory Ventilation, Less than 24 Consecutive Hours, Continuous Positive Airway Pressure (ICD-10-PCS; 2020-02-25)
PROC: 0BH17EZ Insertion of Endotracheal Airway into Trachea, Via Natural or Artificial Opening (ICD-10-PCS; 2020-02-25)
PROC: 02HV33Z Insertion of Infusion Device into Superior Vena Cava, Percutaneous Approach (ICD-10-PCS; 2020-03-18)
PROC: 02PYX3Z Removal of Infusion Device from Great Vessel, External Approach (ICD-10-PCS; 2020-03-18)
PROC: 5A12012 Performance of Cardiac Output, Single, Manual (ICD-10-PCS; 2020-03-20)
DX: U07.1 COVID-19 (principal); J12.89 Other viral pneumonia; A41.9 Sepsis, unspecified organism; N17.0 Acute kidney failure with tubular necrosis; R65.21 Severe sepsis with septic shock; J80 Acute respiratory distress syndrome; G93.40 Encephalopathy, unspecified; E87.0 Hyperosmolality and hypernatremia; E44.0 Moderate protein-calorie malnutrition; E66.9 Obesity, unspecified; E87.6 Hypokalemia; E83.42 Hypomagnesemia; R73.03 Prediabetes; M06.9 Rheumatoid arthritis, unspecified; I48.0 Paroxysmal atrial fibrillation; I46.9 Cardiac arrest, cause unspecified; D64.9 Anemia, unspecified; E87.5 Hyperkalemia; Z68.38 Body mass index [BMI] 38.0-38.9, adult
CPT/HCPCS: 36415; 36600; 71045; 80048; 80053; 80076; 80305; 81001; 82150; 82550; 82553; 82728; 82803; 82948; 83036; 83605; 83615; 83690; 83735; 83880; 84100; 84134; 84436; 84443; 84484; 85025; 85379; 85384; 85610; 85651; 85730; 86140; 86900; 86901; 87040; 87070; 87081; 87086; 87205; 92950; 93005; 93970; 94002; 94003; 96365; 96367; 96375; 97110; 97116; 97161-GP; 97530; 99291; C9113; J0360; J0456; J0696; J1100; J1650; J1815; J1940; J2001; J2250; J2270; J2370; J2543; J2704; J2920; J3010; J3480; J3490; J7030; J7060; P9017; U0003